=== PATIENT | female | born 1955 | race Caucasian/White ===

== ENCOUNTER → 2017-07-11 07:42 | Outpatient (CLI) | payer OTHER, SELFPAY ==
--- NOTE | 2017-07-11 07:58 | MRI_ITS ---
STUDY: MRI LEFT KNEE REASON FOR EXAM: Female, 62 years old. Pain TECHNIQUE: Standardized fat and water weighted pulse sequences were obtained in all 3 orthogonal planes. COMPARISON: X-ray 09/19/2016 FINDINGS: There is a joint effusion and a small popliteal cyst (image 10, 18/30 axial T2 fat sat). There is thinning of the patellar cartilage (image 10/30 axial T2 fat sat). There is complex tear posterior horn of the medial meniscus which is virtually absent (image 16, 15, 14, 13, 11/42 sagittal proton-density). Much of the body is extruded beyond the joint line (image 17/32 coronal T2 fat sat There is slight loss of articular cartilage of the medial joint (image 17/32 coronal T2 fat sat, 12/42 sagittal proton-density). There is a 1 cm enchondroma at the posterior aspect of the distal femur near the intercondylar roof (image 11/30 axial T2 fat sat). There is mild periligamentous edema at the medial collateral ligament (image 17/32 coronal T2 fat sat). Normal lateral meniscus. Normal hyaline cartilage of the lateral femorotibial compartment. Normal lateral femoral condyle and tibial plateau. Normal proximal tibiofibular articulation. Normal lateral collateral (fibular) ligament. Normal popliteus tendon. Normal biceps femoris tendon. Normal anterior cruciate ligament (ACL). Normal posterior cruciate ligament (PCL). Normal quadriceps tendon. Normal patellar tendon. Normal Hoffa's fat pad. MRI/Lower Ext Joint Only (Routine) IMPRESSION: Complex medial meniscus tear Medial collateral ligament sprain Thinning of the patellar cartilage Joint effusion and small popliteal cyst Electronically Signed: Sinan Mccormack MD at 10:42 EST Tel , Service support ,
== END ==
PROVIDERS: Visit Provider Orthopaedic Surgery
DX: M23.8X2 Other internal derangements of left knee (principal); S83.249A Other tear of medial meniscus, current injury, unspecified knee, initial encounter
CPT/HCPCS: 73721

== ENCOUNTER 2020-06-12 07:24 | Day surgery (SDC) | payer OTHER, SELFPAY ==
[2020-05-21 13:21] VITALS: BMI 37.6
--- NOTE | 2020-06-12 08:04 | HP.PCM_ITS ---
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 Allergies clindamycin Adverse Reaction (Verified 05/21/20 13:21) Diarrhea codeine Adverse Reaction (Verified 05/21/20 13:21) Nausea TAPE Adverse Reaction (Uncoded 05/20/19 14:11) Other Medications pantoprazole 40 mg tablet,delayed release 40 mg PO QAM 06/26/17 [History Confirm ed 05/21/20] escitalopram oxalate 10 mg tablet 10 mg PO DAILY 05/21/20 [History Confirmed 05/21/20] levothyroxine 50 mcg capsule 75 mcg PO cap 05/21/20 [History] oxybutynin chloride 15 mg tablet,extended release 24 hr 15 mg PO DAILY 05/21/20 [History Confirmed 05/21/20] Is last menstrual period known: No Patient : No : No PFSH Surgical History H/O thyroidectomy (Acute) History of partial knee replacement (Acute) Hx of cervical polypectomy (Acute) Hx of laparoscopic gastric banding (Acute) [place] teeth extracted (Acute) S/P thyroid biopsy (Inactive) Family History Mother Breast cancer Diabetes Social History (Updated 05/21/20 @ 14:[address] Angela Duran MD) Smoking Status: Never smoker HPI consult,2nd opinion for possible D&C: Details: JAY MCKEON is a 65 year old who presents for second opinion for PMB. Reports spot of blood in August. Was told that it looked like she had a lace ration at that tie and bleeding was attributed to this. Had pap which she was told was normal. Reports was sent for ultrasound due to bloating. Had an ultrasound and was told that she had a polyp. Prior OB recommended D&C, but she initially wanted to delay due to issues with insurance. Has decided that she is now agreeable to D&C. ROS Const Constitutional: Reports system reviewed and no additional complaints, except as docu Eyes Eyes: Reports system reviewed and no additional complaints, except as docu ENT ENT: Reports system reviewed and no additional complaints, except as docu Cardio Card: Reports system reviewed and no additional complaints, except as docu Resp Resp: Reports system reviewed and no additional complaints, except as docu GI GI: Reports system reviewed and no additional complaints, except as docu, bloating and cramping : Reports system reviewed and no additional complaints, except as docu; denies genital itching, light periods, heavy periods, pelvic pain, vaginal discharge, vaginal dryness, vaginal odor or vaginal itching Musc Musc: Reports system reviewed and no additional complaints, except as docu Skin Skin/Breast: Reports system reviewed and no additional complaints, except as docu Neuro Neuro: Reports system reviewed and no additional complaints, except as docu Psych Psych: Reports system reviewed and no additional complaints, except as docu Endo Endo: Reports system reviewed and no additional complaints, except as docu Exam Const General: cooperative, healthy appearing, comfortable, well developed, well groomed Orientation: alert, awake, oriented x3 Neck Neck: normal visual inspection, full ROM Resp Effort & Inspection: normal respiratory effort, able to speak in complete sentences, symmetric chest movement Cardio Rate: regular rate Skin General: no rashes or lesions noted, elasticity normal, turgor normal Lesions: no lesions Rashes: no rashes Neuro General: alert, awake, oriented x3 Cranial Nerves: CN's II-XI intact bilaterally, PERRL, EOM intact bilaterally Cognition: normal cognition Speech: speech normal Gait: normal gait Extrem General: normal to inspection, full ROM, no pedal edema Psych Appearance: grossly normal Mental Status: mental status grossly normal Mood: congruent mood Affect: normal affect Speech and Movement: speech and movement normal Attitude: cooperative Thought Process: normal Thought Content: normal Assessment & Plan 1. Endometrial polyp N84.0 Plan Initially presented with one episode of PMB Had US that showed 2 small areas consistent with polyps Discussed with patient that polyps are typically benign, but there is is a navarrete ce of cancerous or precancerous cells in polyp therefore I would recommend a D&C. The nature of the procedure was described to the patient. The risks, benefits, indications, and alternatives to the procedure were discussed with the patient including bleeding, infection, and damage to surrounding structures. Discussed that risks are very low with D&C. Discussed the possibility of perforation and t hat this could require laparotomy or laparoscopy. Discussed the possibility of damage to surrounding structures including uterus, tubes, ovaries, bowel, or bladder. Understands the risk of hospitalization or reoperation. Voices understanding and agrees to proceed. Plan to proceed with hysteroscopy, D&C, polypectomy, possible symphion. UPDATE- I have seen the patient and performed any clinically relevant updates to the history and physical exam. Angela Duran MD
[2020-06-12 08:39] LABS: Hematocrit 46.2 % (37-47); Hemoglobin 15.2 g/dL (12.0-15.0); Mean Corp Hgb Conc 32.9 g/dL (32-36); Mean Corpuscular Hgb 32.1 pg (27.0-32.0); Mean Corpuscular Volume 97.7 fL (81-99); Platelet Count 202 K/mm3 (150-450); RBC Distribution Width CV 12.2 % (11.6-14.6); RBC Distribution Width SD 44.1 fl (35.1-43.9); Red Blood Count 4.73 M/mm3 (4.2-5.4); White Blood Count 4.8 K/mm3 (4.4-11.0)
[2020-06-12 08:48] VITALS: BP 119/65; PULSE 72; RESP 16; TEMP 36.6; O2SAT 100; BMI 37.8
--- NOTE | 2020-06-12 09:12 | PCM.DC.D&C ---
Discharge Diet: No Restrictions Discharge Activity: Return to Normal Activity, May Shower, May Take a Tub Bath - in 2 weeks. Allergies/Adverse Reactions: Allergies clindamycin Adverse Reaction (Verified 06/12/20 08:54) Diarrhea codeine Adverse Reaction (Verified 06/12/20 08:54) Nausea TAPE Adverse Reaction (Uncoded 06/12/20 08:54) Other Medications to take at Discharge pantoprazole 40 mg tablet,delayed release 40 mg PO QAM 06/26/17 escitalopram oxalate 10 mg tablet 10 mg PO DAILY 05/21/20 levothyroxine 50 mcg capsule 75 mcg PO DAILY cap 05/21/20 oxybutynin chloride 15 mg tablet,extended release 24 hr 15 mg PO DAILY PRN 05/21/20 L.acidoph,Paracasei, B.lactis [Probiotic] 1 ea PO PRN PRN 06/05/20 Magwell 1 tab PO DAILY 06/05/20 Multivitamin with Minerals [Multiple Vitamin] 1 ea PO DAILY 06/05/20 Orders to be completed after discharge: Type & Screen - PAT ONLY Time Frame: 06/12/20, Facility: [facility], Location: Laboratory Primary Care Physician: Jennifer Jaquez MD [Primary Care Provider] - Test Results: Test results from this visit will be discussed in further detail at your follow-up appointment, if applicable.
--- NOTE | 2020-06-12 09:20 | EMB_PTH ---
PATIENT: JAY MCKEON [place] [facility] [place][id number] AGE/SX: 65/F ROOM: RE06/12/[address]: Dr. Angela Duran MD : 1955 BED: DIS: 06/12/2020 SPEC #: [id number] RECD: 06/12/20 10:29 STATUS: LISA WALLACE #: [id number] DIONISIO: 06/12/20 09:[address]: Angela Duran DEPT: SURGICAL PATHOLOGY RECD BY: Allyson Aguilera ENTERED: 06/12/20 11:27 SP TYPE: ENDOM BX/C OTHR DR: Dr. Jennifer Jaquez MD Tissues: Endometrium, NOS Procedures: Surgery Specimen Level IV HEADER OPERATION: Hysteroscopy, D & C, polypectomy PRE-OP DIAGNOSIS: Postmenopausal bleeding TISSUE SUBMITTED: Endometrial curettings and polyp MICROSCOPIC DIAGNOSIS Endometrial polyp and curettings, biopsy: Inactive polypoid endometrium with focal cystic change. Rare fragments of detached benign squamous mucosa. AM:shiv 06/13/2020 MICROSCOPIC DESCRIPTION Slides are reviewed. GROSS DESCRIPTION Received in fixative is one container labeled with the patient's name and designated endometrial curettings and polyp. The specimen consists of multiple irregular fragments of quinteros soft tissue that in aggregate measure 2.5 x 1.5 x 0.2 cm. The specimen is totally submitted in one cassette. / SJ:shiv 06/12/20 TC:5 CPT: 40986
[2020-06-12] MEDS: Lidocaine 1% (20 ml mdv) 20 ML Vial (09:44)
--- NOTE | 2020-06-12 10:11 | OP.PCM_ITS ---
Problem List (1) Postmenopausal bleeding Status: Acute Report of Operation Date of Procedure: 06/12/20 Pre-Operative Diagnosis: Postmenopausal bleeding, suspected endometrial polyp Post-Operative Diagnosis: Same Surgery/Procedure Performed:: Hysteroscopy, D&C, symphion polypectomy Description of Surgical Findings:: 2 endometrial polyps noted. Small polyp at the right tubal ostia. Larger polyp at uterine fundus with areas of calcifications. machine operator transplanter: None Type of Anesthesia:: Local MAC Specimen's removed: Endometrial curettings and polyp Estimated Blood Loss (mL): 10 cc Fluids Replaced: 500 cc Description of Procedure: The patient was taken to the operating room where general anesthesia was obtained without difficulty. She was prepped and draped in the dorsolithotomy position with yellowfin stirrups. Weighted speculum was placed in the posterior aspect of the vagina and the anterior lip of the cervix was grasped with a single-tooth tenaculum. The cervix was sequentially dilated to accommodate the hysteroscope. The hysteroscope was then introduced into the uterine cavity and the above findings were noted. The symphion device was then introduced through the hysteroscope and activated to fully resect the polyps. Hemostasis was noted. The hysteroscope was removed and a sharp curettage was then performed. The procedure was deemed complete. All instruments were then removed from the vagina. The patient was again from anesthesia and taken to the recovery room in stable condition. - Complications None apparent - Admit VTE Documentation VTE Present on Admission: No VTE Mechan Device Prophylaxis: SCD's VTE Pharm Prophylaxis ordered?: No Multi Select Codes - Urinary/Genital Urinary/Genital CPT Codes: 56334 Hysteroscopy,EMC, Polypectomy
[2020-06-12 10:15] VITALS: BP 114/72; BP 119/65; PULSE 83; RESP 16; TEMP 36.2; O2SAT 94
[2020-06-12 10:30] VITALS: BP 112/70; BP 119/65; PULSE 66; RESP 16; O2SAT 96
[2020-06-12 10:45] VITALS: BP 117/67; BP 119/65; PULSE 61; RESP 16; O2SAT 97
[2020-06-12 10:56] VITALS: BP 114/72; BP 119/65; PULSE 61; RESP 16; TEMP 36.6; O2SAT 95
[2020-06-12 11:27] VITALS: BP 119/65
== END 2020-06-12 11:32 | disposition home or self-care (01) ==
LOC: SDC 07:25 → AC 07:25
PROVIDERS: PCP Family Medicine; Referring Provider Obstetrics & Gynecology; Visit Provider Obstetrics & Gynecology
PROC: 0UB98ZZ Excision of Uterus, Via Natural or Artificial Opening Endoscopic (ICD-10-PCS; CPT 58558; principal; 2020-06-12 09:05)
DX: N84.0 Polyp of corpus uteri (principal); N95.0 Postmenopausal bleeding; K21.9 Gastro-esophageal reflux disease without esophagitis; F41.9 Anxiety disorder, unspecified; E06.9 Thyroiditis, unspecified; Z79.899 Other long term (current) drug therapy; Z20.822 Contact with and (suspected) exposure to COVID-19
CPT/HCPCS: 00952; 58558; 85027; 86850; 86900; 86901; 87426; 88305; C9803; J7120; J2405

== ENCOUNTER → 2020-07-11 08:10 | Outpatient (CLI) | payer OTHER, SELFPAY ==
[2020-06-25 11:00] VITALS: BMI 37.8
--- NOTE | 2020-07-11 08:12 | BI_ITS ---
MAMMOGRAPHY - BILATERAL SCREENING REASON FOR EXAM: Female, 65 years old. Routine annual screening examination. PERTINENT HISTORY: Sister with breast cancer. Aunts with breast cancer. TECHNIQUE: Digital bilateral breast shea (3D mammographic acquisition) in the CC and MLO projections. 2-D mediolateral oblique (MLO) and craniocaudad (CC) views of both breasts were obtained. CAD: Full Field Digital Mammography with Computer Added Detection was performed. COMPARISON: Comparison is made with prior outside examination dated 12/03/2017. FINDINGS: Breast Composition: There are scattered areas of fibroglandular density. There are no dominant masses or suspicious calcifications. Stable small benign appearing bilateral axillary lymph nodes. No other significant abnormalities are identified. There has been no significant change since the prior study. BI/SCRN MAMM (CAD)W/SHEA BILAT IMPRESSION: Stable bilateral screening mammogram. Yearly follow-up mammogram recommended. (A) ASSESSMENT CATEGORY: BIRADS Category 2: Benign. A letter regarding these results will be sent to the patient by the facility within 30 days. Approximately 10% of breast cancers are not detected by mammography. A normal mammogram should not delay biopsy of a clinically suspicious abnormality. [id number] Electronically Signed: Levy Barnes MD at 10:31 EST , Service support ,
== END ==
PROVIDERS: PCP Family Medicine; Referring Provider Obstetrics & Gynecology; Visit Provider Obstetrics & Gynecology
DX: Z12.31 Encounter for screening mammogram for malignant neoplasm of breast (principal)
CPT/HCPCS: 77063; 77067

== ENCOUNTER 2020-07-24 11:49 | Outpatient (RCR) | payer OTHER, SELFPAY ==
[2020-06-25 11:00] VITALS: BMI 37.8
[2020-07-24] MEDS: COVID-19 VACC, MRNA(PFIZER)/PF 30 MCG/0.3 ML SYRINGE IM (09:03)
[2020-08-14] MEDS: COVID-19 VACC, MRNA(PFIZER)/PF 30 MCG/0.3 ML SYRINGE IM (09:08)
== END 2020-10-23 23:59 ==
LOC: IMMUN 11:49
PROVIDERS: PCP Family Medicine; Referring Provider Family Medicine; Visit Provider Family Medicine
DX: Z23 Encounter for immunization (principal)
CPT/HCPCS: 0001A; 0002A; 91300

== ENCOUNTER 2020-12-17 07:57 | Day surgery (SDC) | payer MEDICARE, BC, SELFPAY ==
[2020-08-02 09:00] VITALS: BMI 37.7
[2020-12-17] VITALS (7 sets, daily range): BP systolic 105–126; BP diastolic 65–89; PULSE 72–85; RESP 16; TEMP 35.9–36.9; O2SAT 94–99; BMI 36.6
[2020-12-17] MEDS: Lactated Ringers 1,000 ML 100 ML IV (08:31)
--- NOTE | 2020-12-17 08:36 | H&P.OPEN ---
HPI - General General Date of Admission: 06/12/20 HPI Narrative JAY MCKEON, is a 65 F who presents for screening colonoscopy. Patient's last colonoscopy was in 2007 at [facility] just had internal hemorrhoids, patient denies any family history of colon cancer. Patient did do a Cologuard test 4 to 5 years ago which was negative per the patient. Patient still states he been having normal bowel movements daily was having diarrhea for a little bit until she did the intermittent fasting. Denies any chronic abdominal pain nausea/vomiting/reflux. [facility] Medical History (Updated 12/17/20 @ 08:[address] Berta Amor MD) Acute bronchitis Alcohol use Anxiety Bite from insect Easy bruising GERD (gastroesophageal reflux disease) History of hyperlipidemia History of stress test Leg cramps Non-smoker Postmenopausal bleeding Restless legs Wears glasses Home Medications pantoprazole 40 mg tablet,delayed release 40 mg PO DAILY PRN PRN 06/26/17 [History Last Taken 06/12/20 05:00] escitalopram oxalate 10 mg tablet 10 mg PO DAILY 05/21/20 [History Last Taken Unknown] levothyroxine 50 mcg capsule 75 mcg PO DAILY cap 05/21/20 [History Last Taken Unknown] oxybutynin chloride 15 mg tablet,extended release 24 hr 15 mg PO DAILY PRN 05/21/20 [History Last Taken Unknown] L.acidoph, paracasei,B. lactis 1 ea PO PRN PRN 06/05/20 [History Last Taken Unknown] Magwell 1 tab PO DAILY 06/05/20 [History Last Taken Unknown] multivitamin with minerals 1 ea PO DAILY 06/05/20 [History Last Taken Unknown] Allergy/AdvReac Type Severity Reaction Status Date / Time clindamycin Allergy Diarrhea Verified 12/17/20 08:24 codeine Allergy Other Verified 12/17/20 08:24 bandaid Allergy Other Uncoded 12/17/20 08:24 Family History Mother Breast cancer Diabetes Surgical History (Updated 12/12/20 @ 10:36 by Jodie Barbosa) H/O dilation and curettage (~06/12/20) H/O thyroidectomy History of partial knee replacement Hx of cervical polypectomy Hx of laparoscopic gastric banding S/P thyroid biopsy [place] teeth extracted Social History (Updated 08/02/20 @ 09:[address] Berta Amor MD) Smoking Status: Never smoker alcohol intake: current details: occasionally substance use type: does not use caffeine: Yes what type of physical activity do you participate in: none seatbelt use: always do you feel safe at home: Yes additional social history: [employer] Past Medical/Surgical History Planned Operation Planned Operative Procedure/s: colonoscopy S.O.S: No Previous Hospitalizations/Surgeries HX Hospitalizations: No HX of Surgeries: left tkr d&c's thyroid lobectomy lap band cscope egd Any Problems With Anesthesia: Yes (very difficult time waking after knee replacement) You/Your Family Experience Fever (Hyperthermia) With Anes: No Cholinesterase deficiency: No Cardiovascular Hx Chest Pain within Last 2 months: No Hx of Irregular Heartbeat and/or Afib: No Hx Heart Attack: No Hx Congestive Heart Failure: No Hx Rheumatic Fever: No Hx Hypertension: No Hx Internal Defibrillator: No Hx Pacemaker: No Hx Cardiac Catheterization: No Hx Cardiac Surgery/Stents/Etc.: No Hx Stress Test: Yes (over 5 yrs ago) Hx Pain in Legs when Walking/Leg Cramps: Yes (knee pain) Respiratory Chronic Cough: No HX of Shortness of Breath: Yes (slightly sob with 2 flights of stairs) Hoarseness: No Hx Chronic Obstructive Pulmonary Disease (COPD): No Hx Asthma: No Hx Emphysema: No Hx Sleep Apnea: No Hx Respiratory Tract Infection/Cold (presently): No Do You Snore Loudly (louder than talking or can be heard): Yes Do You Often Feel Tired/ Fatigued/ Sleepy Dring Daytime?: No Has Anyone Observed You Stop Breathing During Sleep?: No Result (for STOP score): Negative Hx Smoking: No Smoking Status: Never smoker Gastrointestinal Hx Gastroesophageal Reflux: Yes Controlled With Meds: Yes Hx Gastrointestinal Disorders: No Hx Gastrointestinal Bleed: No Hx Ulcer: No Hx Hiatal Hernia: Yes (repaired with lap band sugery) Difficulty Chewing/Swallowing: No Special diet followed at home: No Hx Unplanned Weight Loss of 20#: No HX Unplanned Weight Gain of 20#: No Neurological Hx Seizures: No HX Syncope/Blackout Spells/Unconsciousness: No Hx Transient Ischemic Attacks (TIA): No Hx Multiple Sclerosis: No Hx Parkinson's Disease: No Hx Head/Neck Injury: No Hx Headaches: No Hx Back Injury/Pain: No Recent Onset of Speech Difficulty: No Restless Legs: Yes (in the past) Does patient have nerve stimulator: No Blood Disorder Hx Leukemia: No Bleeding Tendencies: Yes (bruises easily) Hx Deep Vein Thrombosis: No Hx High Cholesterol: No Blood Transmitted Disease: No Hx Hepatitis: No Hx Cirrhosis: No Hx Anemia: No Hx Blood Disorders: No Reproduction : No Is Patient Lactating: No Hx Hysterectomy: No Hx Tubal Ligation: No Are You Post Menopause: Yes Genitourinary Hx Renal Disease: No (oab) Musculoskeletal Hx Arthritis: Yes Hx Rheumatoid Arthritis: No Hx Gout: No Recent Onset of an Orthopedic Problem: No Endocrine Hx Diabetes: No Thyroid Disease: Yes (on med) Hx Steroid Therapy: No Psycho/Social Hx Substance Use: No Hx Alcohol Use: No Hx Anxiety: Yes (on med) Hx Depression: No Mental Illness: No Hx Dementia: No Miscellaneous Hx Cancer: Yes (thyroid/lobectomy) Recent Exposure to Contagious Disease: Yes Hx of C-Diff: No Any Loose Teeth: No Allergies clindamycin Allergy (Verified 12/17/20 08:24) Diarrhea codeine Allergy (Verified 12/17/20 08:24) Other nausea and fainting bandaid Allergy (Uncoded 12/17/20 08:24) Other blisters From the PAT History Number of Risk Factors: 5 Vital Signs Vital Signs Vital Signs: 12/17/20 08:25 Temperature 98.4 F Temperature Source Temporal Pulse Rate 85 Respiratory Rate 16 Respiratory Pattern Normal Blood Pressure 113/77 Blood Pressure Mean 89 Blood Pressure Source Monitor Blood Pressure Position Semi-Fowlers Blood Pressure Location Right Arm Pulse Ox 99 Oxygen Delivery Method Room Air Weight Weight: 213 lb 6.519 oz Body Mass Index (BMI) 36.6 Physical Exam Const alert, oriented x3 and no apparent distress HEENT normocephalic and head/scalp atraumatic Resp normal respiratory effort Cardio regular rate GI soft to palpation and non-tender; Negative for non-distended Palpation: Negative for guarding Extremity no clubbing, cyanosis or edema Neuro CN's II-XII intact bilaterally Psych mental status grossly normal Assessment & Plan Assessment/Plan (1) Screening for colon cancer: Procedure Criteria Type of Procedure Procedure Type: Elective Elective Risks - COVID COVID Risk Discussion: The surgeon/proceduralist and patient have discussed in detail the risk of exposure to and/or potential harm posed by the COVID-19 virus with having a surgery/procedure at this time versus the risk of delaying the surgery/procedure. It is not possible to know either the risk of delaying the surgery or procedure or chance of getting an infection with perfect accuracy, but a joint decision was made between the patient and the surgeon/proceduralist to proceed at this time with the scheduled surgery/procedure as indicated on the consent form. Surgery Risks - Colonoscopy Risks Include but are not Limited To: Risks include but are not limited to: Bleeding, perforation requiring further surgery, inability to complete colonoscopy requiring barium enema.
--- NOTE | 2020-12-18 13:08 | OP.COLON_ITS ---
Patient Name: Anitha Sorensen Procedure Date: 12/17/2020 8:44 AM Date of : 1955 Age: 65 Procedure: Colonoscopy Indications: Screening for colorectal malignant neoplasm Providers: Berta Amor MD Medicines: Monitored Anesthesia Care Patient Profile: This is a 65 year old female. Last Colonoscopy: 2007. cologuard 4-5 years ago--negative per pt Complications: No immediate complications. Procedure: Pre-Anesthesia Assessment: - Prior to the procedure, a History and Physical was performed, and patient medications and allergies were reviewed. The patient's tolerance of previous anesthesia was also reviewed. The risks and benefits of the procedure and the sedation options and risks were discussed with the patient. All questions were answered, and informed consent was obtained. Prior Anticoagulants: The patient has taken no previous anticoagulant or antiplatelet agents. ASA Grade Assessment: Per anesthesia. After reviewing the risks and benefits, the patient was deemed in satisfactory condition to undergo the procedure. After I obtained informed consent, the scope was passed under direct vision. Throughout the procedure, the patient's blood pressure, pulse, and oxygen saturations were monitored continuously. The pediatric colonoscope was introduced through the anus and advanced to the cecum, identified by the appendiceal orifice, ileocecal valve and palpation. The colonoscopy was performed without difficulty. The patient tolerated the procedure well. The quality of the bowel preparation was good. Scope In: 8:55:44 AM Scope Withdrawal Time 0 hours 6 minutes 45 seconds Scope Out: 9:11:01 AM Total Procedure Duration Time 0 hours 15 minutes 17 seconds Findings: The perianal and digital rectal examinations were normal. The entire examined colon appeared normal on direct and retroflexion views. Impression: - The entire examined colon is normal on direct and retroflexion views. - No specimens collected. Recommendation: - Discharge patient to home. - Resume previous diet. - Continue present medications. - Repeat colonoscopy in 10 years for screening purposes. Procedure Code(s): --- Professional --- G0121, PT, Colorectal cancer screening; colonoscopy on individual not meeting criteria for high risk CPT copyright 2017 [employer]. All rights reserved. The codes documented in this report are preliminary and upon investigator claims review may be revised to meet current compliance requirements. MD Berta Bautista MD 12/17/2020 9:17:04 AM This report has been signed electronically. Number of Addenda: 0 Note Initiated On: 12/17/2020 8:44 AM
--- NOTE | 2020-12-18 13:08 | OP.CCLET_ITS ---
12/18/2020 Jennifer Jaquez Md Re : Colonoscopy procedure for Anitha Sorensen Dear Gisele This procedure was performed on Thursday, December 17, 2020. My impressions and recommendations are as follows: Impressions : - The entire examined colon is normal on direct and retroflexion views. - No specimens collected. Recommendations : - Discharge patient to home. - Resume previous diet. - Continue present medications. - Repeat colonoscopy in 10 years for screening purposes. My findings are described in the full procedure note, which is enclosed. If I can be of further assistance, please feel free to contact me at Doctor phone number(s): , Work: . Sincerely, MD Berta Bautista MD 12/17/2020 9:17:04 AM This report has been signed electronically.
== END 2020-12-17 10:12 | disposition home or self-care (01) ==
LOC: EN 08:04 → AC 08:18
PROVIDERS: PCP Family Medicine; Referring Provider Family Medicine; Visit Provider Surgery
PROC: 0DJD8ZZ Inspection of Lower Intestinal Tract, Via Natural or Artificial Opening Endoscopic (ICD-10-PCS; CPT 45378; principal; 2020-12-17 08:40)
DX: Z12.11 Encounter for screening for malignant neoplasm of colon (principal); K21.9 Gastro-esophageal reflux disease without esophagitis; F41.9 Anxiety disorder, unspecified; E78.5 Hyperlipidemia, unspecified; Z79.899 Other long term (current) drug therapy
CPT/HCPCS: G0121; J7120; J2405

== ENCOUNTER → 2021-03-21 10:01 | Outpatient (CLI) | payer MEDICARE, BC, SELFPAY ==
[2021-03-21 11:13] LABS: NATERA MAILED SPECIMEN
[2021-03-26 16:25] LABS: HPV APTIMA, High Risk Negative (Negative)
== END ==
PROVIDERS: PCP Family Medicine; Referring Provider Obstetrics & Gynecology; Visit Provider Obstetrics & Gynecology
DX: Z01.419 Encounter for gynecological examination (general) (routine) without abnormal findings (principal)
CPT/HCPCS: 36415; 87624; 88175; G0145

== ENCOUNTER 2021-07-12 09:29 | Outpatient (CLI) | payer MEDICARE, BC, SELFPAY ==
--- NOTE | 2021-07-12 09:58 | BI_ITS ---
MAMMOGRAPHY - BILATERAL SCREENING REASON FOR EXAM: Female, 66 years old. Routine annual screening examination. PERTINENT HISTORY: Sister with breast cancer. Aunts with breast cancer. TECHNIQUE: Digital bilateral breast shea (3D mammographic acquisition) in the CC and MLO projections. 2-D mediolateral oblique (MLO) and craniocaudad (CC) views of both breasts were obtained. CAD: Full Field Digital Mammography with Computer Added Detection was performed. COMPARISON: Comparison is made with a prior study dated 07/11/2020. FINDINGS: Breast Composition: There are scattered areas of fibroglandular density. There are no dominant masses or suspicious calcifications. Stable benign-appearing bilateral axillary lymph nodes. No other significant abnormalities are identified. There has been no significant change since the prior study. BI/SCRN MAMM (CAD)W/SHEA BILAT IMPRESSION: Stable bilateral screening mammogram. Yearly follow-up mammogram recommended. (A) ASSESSMENT CATEGORY: BIRADS Category 2: Benign. A letter regarding these results will be sent to the patient by the facility within 30 days. Approximately 10% of breast cancers are not detected by mammography. A normal mammogram should not delay biopsy of a clinically suspicious abnormality. [id number] Electronically Signed: Levy Barnes MD at 10:57 EST ,
== END 2021-07-12 23:59 | disposition home or self-care (01) ==
LOC: OPBI 09:58
PROVIDERS: PCP Family Medicine; Referring Provider Obstetrics & Gynecology; Visit Provider Obstetrics & Gynecology
DX: Z12.31 Encounter for screening mammogram for malignant neoplasm of breast (principal)
CPT/HCPCS: 77063; 77067

== ENCOUNTER → 2022-04-14 | Outpatient (CLI) | payer MEDICARE, BC, SELFPAY ==
--- NOTE | 2022-04-14 18:27 | US_ITS ---
INDICATION: presurgery EXAMINATION: US Transvaginal Non-OB TECHNIQUE: Transvaginal (for optimal evaluation of the adnexa) pelvic ultrasound was performed. Grayscale, spectral waveform, and color flow Doppler evaluation of the adnexa. COMPARISON: None. FINDINGS: UTERUS: Retroverted. The uterus measures 6.3 x 3.6 x 4 cm. There is no uterine mass. The endometrial stripe measures 1 mm in AP diameter which is within normal limits. Slightly irregular and heterogenous appearance of the cervix. RIGHT OVARY: Measures 1.9 x 1.7 x 1.2 cm. Non-enlarged, normal echogenicity. There is normal arterial inflow and venous outflow present in the right ovary. There is a 1.3 cm well-circumscribed anechoic cyst in the right ovary. LEFT OVARY: Measures 1.5 x 1.1 x 0.7 cm. Non-enlarged, normal echogenicity. There is normal arterial inflow and venous outflow present in the left ovary. FREE FLUID: None. OTHER: Asymmetric bladder wall thickening. US/Transvaginal Non- IMPRESSION: Slightly irregular and heterogenous appearance of the cervix. Recommend comparison to prior outside imaging as well as possible tissue sampling. Asymmetric bladder wall thickening. Correlate with urinalysis for possible cystitis. A CT cystogram may be beneficial if clinically warranted. Electronically Signed: Ariel Villarreal MD at 20:52 EST ,
== END | disposition home or self-care (01) ==
LOC: US 18:27
PROVIDERS: PCP Family Medicine; Visit Provider Obstetrics & Gynecology
DX: Z01.818 Encounter for other preprocedural examination (principal)
CPT/HCPCS: 76830

== ENCOUNTER 2022-04-15 07:25 | Day surgery (SDC) | payer MEDICARE, BC, SELFPAY ==
--- NOTE | 2022-04-09 15:59 | EKG12_ITS ---
Test Reason : PRE-OP Blood Pressure : / mmHG Vent. Rate : 081 BPM Atrial Rate : 081 BPM P-R Int : 192 ms QRS Dur : 086 ms QT Int : 382 ms P-R-T Axes : 022 015 005 degrees QTc Int : 443 ms Normal sinus rhythm Normal ECG Confirmed by ZACH SAAVEDRA, CHEO ([id number]), news editor FLAKO OQUENDO ([id number]) on 04/11/2022 11:08:34 AM Referred By: Sandra Doyle Confirmed By:CHEO SERRANO MD
--- NOTE | 2022-04-14 14:29 | PCM.HP.BLA ---
History and Physical Intake Vital Signs ? 03/21/2109:06 04/03/2210:06 04/03/2210:07 Height 5 ft 3 in 5 ft 4 in 5 ft 3 in Weight: ? 224 lb ? BMI ? 38.4 ? BP ? 120/74 ? Intake Visit Reasons:?TVHBSO Chief Complaint: TVHBSO Claim Clerk Required: No Is patient in pain?: No Allergies clindamycin Allergy (Verified 03/21/21 09:07) Diarrheacodeine Allergy (Verified 03/21/21 09:07) Otherbandaid Allergy (Uncoded 03/21/21 09:07) Other Medications pantoprazole 40 mg tablet,delayed release (Protonix) 40 mg PO DAILY PRN PRN Heartburn 06/26/17 [History Confirmed 04/03/22] escitalopram oxalate 10 mg tablet (Lexapro) 10 mg PO DAILY 05/21/20 [History Confirmed 04/03/22] levothyroxine 50 mcg capsule 75 mcg PO DAILY 05/21/20 [History Confirmed 04/03/22] multivitamin with minerals 1 ea PO DAILY 06/05/20 [History Confirmed 04/03/22] dicyclomine 20 mg tablet 20 mg PO BID #60 tabs 02/15/21 [Rx Confirmed 04/03/22] Is last menstrual period known: No Post menopausal: Yes Patient : No : No PFSH Medical History?(Updated 04/03/22 @ 10:[address] Sandra Doyle MD) Acute bronchitis Alcohol use Anxiety Bite from insect Easy bruising GERD (gastroesophageal reflux disease) History of hyperlipidemia History of stress test Leg cramps Non-smoker Postmenopausal bleeding Restless legs Wears glasses Surgical History? H/O dilation and curettage (~06/12/20) H/O thyroidectomy History of partial knee replacement Hx of cervical polypectomy Hx of laparoscopic gastric banding S/P thyroid biopsy [place] teeth extracted Family History? Mother DiabetesSister Breast cancer DiabetesAunt Breast cancer Colon cancerUnknown?? Breast cancerAunt Breast cancerUnknown Breast cancerGrandmother Cancer ?? ? unknown origin Social History? Smoking Status:? Never smoker alcohol intake:? current details:? occasionally substance use type:? does not use caffeine:? Yes what type of physical activity do you participate in:? none seatbelt use:? always do you feel safe at home:? Yes additional social history:? - [facility] TVHBSO Details: JAY MCKEON is a 67 year old who presents for preop visit for hysterectomy due to recurrent endometrial polyps and intermittent postmenopausal bleeding, recurrent. she had originally planned on a hysterecotmy at the beginning of the year but has been delaying it due to covid. she is now ready to proceed. she was started on metformin recently for prediabetes.?she had a pelvic ultrasound showing heterogenous appearance to the cervix and has a history of recurrent polyps, 1 mm lining of uterus. Female Reproductive History Menopausal Symptoms: No hot flashes, No night sweats, No difficulty concentrating and No change in libido ROS Const Constitutional: Reports as per HPI; Denies fatigue, increased appetite, poor appetite, night sweats, weight gain or weight loss Cardio Card: Denies chest pain Resp Resp: Denies cough or dyspnea GI GI: Reports as per HPI; Denies abdominal pain, bloating, constipation, nausea or vomiting : Reports as per HPI, urinary frequency, urinary incontinence, urinary urgency and other; Denies difficulty voiding, dysuria, hematuria, hot flashes, nipple discharge, pelvic pain, prolapse symptoms, vaginal discharge, vaginal dryness, vaginal odor or vaginal pruritus Skin Skin/Breast: Denies changing lesions, breast mass, breast pain, breast skin changes or nipple discharge Psych Psych: Denies anxiety, change in libido, depression or difficulty concentrating Exam Const General: cooperative, healthy appearing, comfortable, no acute distress, well developed and well groomed [facility] Head: normal to inspection and normocephalic Ears: hearing grossly normal bilaterally and external ears normal Nose: external nose normal Face and sinus: normal facial exam Neck Neck: normal visual inspection, full ROM and no lymphadenopathy Thyroid: thyroid normal Chest Chest palpation & inspection: normal inspection of the chest Breast inspection: normal inspection of the breasts and normal inspection of the axillae Breast palpation: normal palpation of the breasts, normal palpation of the axillae and no axillary lymphadenopathy Resp Effort & Inspection: normal respiratory effort GI Inspection: normal to inspection and non-distended Palpation: soft, no hepatosplenomegaly and no guarding Skin General: no rashes or lesions noted Neuro General: patient alert, moves all extremities and no focal motor deficits Extrem General: normal to inspection and no pedal edema Psych Appearance: grossly normal Mental Status: mental status grossly normal Affect: normal affect Speech and Movement: speech and movement normal Attitude: cooperative Coding Level of Care Code No Charge Diagnoses Endometrial polyp? N84.0 Prediabetes? R73.03 Assessment and Plan Assessment and Plan (1) Endometrial polyp: ?Status:?Acute ?Comment: recurrent x 3, discussed options for management and plan for TVHBSO (2) Prediabetes: ?Status:?Acute ?Comment: recently started on metformin Plan After discussing the patient's diagnosis and treatment plan options, patient wishes to proceed with surgical management.? I have discussed with the patient the risks, benefits, and alternatives of the procedure which include but are not limited to risks of anesthesia, bleeding, infection, possible damage to bowel, bladder, or surrounding vasculature which could lead to additional surgery to evaluate any complications.? Patient agrees to procedure and wishes to proceed.? ACOG/uptodate references given for additional information regarding procedure. UPDATE- I have seen the patient and performed any clinically relevant updates to the history and physical exam. Sandra Doyle MD?
[2022-04-15] VITALS (18 sets, daily range): BP systolic 106–134; BP diastolic 54–83; PULSE 54–85; RESP 12–20; TEMP 36.4–37.7; O2SAT 86–99; BMI 39.9
[2022-04-15] MEDS: Scopolamine 1mg/72hr Patch 1 PATCH TD (08:31)
[2022-04-15 08:32] LABS: Absolute Lymphocyte Count 1.87 X10^3/uL (0.83-4.51); Absolute Neutrophil Count 2.6 X10^3/uL (2.0-7.7); Basophil# 0.03 X10^3/uL; Basophil% 0.6 % (0-1); Eosinophil# 0.19 X10^3/uL; Eosinophils% 3.6 % (0-5); Hemoglobin 14.2 g/dL (12.0-15.0); Lymphocyte # 1.87 X10^3/ul (0.83-4.51); Lymphocyte % 35.7 % (19-41); Mean Corp Hgb Conc 32.3 g/dL (32-36); Mean Corpuscular Hgb 31.9 pg (27.0-32.0); Mean Corpuscular Volume 98.9 fL (81-99); Mean Platelet Vol. 11.5 fl (6.2-12.0); Monocyte# 0.59 X10^3/uL; Monocyte% 11.3 % (0-10); NRBC Flagged by Analyzer 0 % (0-5); Neutrophil # 2.55 X10^3/uL (2.7-7.7); Neutrophil % 48.6 % (47-70); Platelet Count 217 K/mm3 (150-450); RBC Distribution Width CV 12.8 % (11.6-14.6); RBC Distribution Width SD 46.1 fl (35.1-43.9); Red Blood Count 4.45 M/mm3 (4.2-5.4); White Blood Count 5.2 K/mm3 (4.4-11.0)
[2022-04-15] MEDS: Celecoxib 200 MG Capsule 400 MG PO (08:32)
[2022-04-15] MEDS: Acetaminophen 500 MG Tablet 1000 MG PO (08:32)
[2022-04-15] MEDS: Gabapentin 600 MG Tablet PO (08:33)
[2022-04-15] MEDS: Lactated Ringers 1,000 ML 40 ML IV (08:33)
[2022-04-15] MEDS: dexAMETHasone 10 MG/ML Vial 8 MG IV (08:39)
[2022-04-15 08:41] LABS: International Normalized Ratio 0.9
[2022-04-15 08:42] LABS: Partial Thromboplast Time 26.4 Seconds (24.1-36.2)
[2022-04-15] MEDS: Enoxaparin 40 MG/0.4 ML Syringe SC (08:43)
[2022-04-15 09:08] LABS: AST(SGOT) 19 U/L (15-37); Alanine Aminotransfer ALT/SGPT 30 U/L (13-56); Albumin, Serum 3.6 g/dL (3.2-5.0); Alkaline Phosphatase 87 U/L (45-117); Anion Gap 9 (5-15); BUN 13 mg/dL (7-18); BUN/Creat Ratio 15.5 RATIO (10-20); Calcium,Total 8.8 mg/dL (8.5-10.1); Chloride 105 mmol/L (98-107); Creatinine, Serum 0.84 mg/dL (0.55-1.02); EST Glomerular Filtration Rate 72 mL/min (>60); Est Glom Filt Rate - Afr Amer 87 mL/min (>60); Globulin 3.6 g/dL (2.2-4.2); Glucose 104 mg/dL (74-106); Magnesium 2.2 mg/dL (1.6-2.6); Protein, Total 7.2 g/dL (6.4-8.2); Sodium Level 142 mmol/L (136-145); Thyroid Stim Hormone (TSH) 1.16 uIU/mL (0.358-3.74)
[2022-04-15] MEDS: Cefazolin 2 GM in 0.9% Normal Saline 100 ML IV (09:17)
[2022-04-15 09:22] LABS: Hemoglobin A1c 5.8 % (3.8-5.6)
--- NOTE | 2022-04-15 09:30 | HYST_PTH ---
PATIENT: JAY MCKEON LOC: [facility] [place] U#:[id number] AGE/SX: 67/F ROOM: RE04/15/[address]: Dr. Sandra Doyle MD : [id number] BED: DIS: 04/15/2022 SPEC #: [id number] RECD: 04/15/22 13:39 STATUS: LISA REAnnie #: [id number] DIONISIO: 04/15/22 09:[address]: Sandra Doyle DEPT: SURGICAL PATHOLOGY RECD BY: Allyson Aguilera ENTERED: 04/16/22 09:04 SP TYPE: HYSTERECT OTHR DR: Dr. Jennifer Jaquez MD Tissues: Uterus, NOS Procedures: Surgery Specimen Level V HEADER OPERATION: ERAS, vaginal hysterectomy, BSO PRE-OP DIAGNOSIS: Endometrial polyp TISSUE SUBMITTED: Uterus, cervix, right fallopian tube and ovary, fibroid MICROSCOPIC DIAGNOSIS Uterus, hysterectomy: Cervix ? minimal chronic inflammation and nabothian cysts. Endometrium ? inactive endometrium with focal cystic change. Myometrium ? focal superficial adenomyosis. Right ovary ? corpora albicantia. Right fallopian tube - No pathologic change. Fragments free in container ? one fragment with organizing fat necrosis with dystrophic microcalcifications. One nodule consistent with hyalinized fibroadenoma. AM:shiv 04/17/2022 MICROSCOPIC DESCRIPTION Slides are reviewed. GROSS DESCRIPTION Received in fixative is one container labeled with the patient's name and designated uterus. The specimen consists of a uterus with attached cervix and attached right ovary and fallopian tube. The uterus with cervix measures 7 x 5.5 x 4.2 cm and weighs 53 gm. The endocervical canal measures 3.4 cm in length and is grossly unremarkable. The triangular endometrial cavity measures 3 x 2.8 cm. The reddish-quinteros, velvety endometrium measures up to 0.1 cm in thickness. The myometrium measures 1.5 cm in average thickness and is free of mass lesions. The crinkled, smooth, glistening light quinteros ovary measures 2.5 x 1.6 x 1 cm. Serial sections of the ovary do not reveal mass lesions. The adjacent fallopian tube measures 4 cm in length and contains a normal fimbrial end. No tubo-ovarian adhesions are seen. Present free in the container are two light quinteros rubbery nodules ranging in size from 1.3 to 2.5 cm. Serial sections of the nodules reveal a rubbery, white cut surface. Transcript Evaluator sections are submitted in ten cassettes as follows: 1 - anterior cervix, 2 - posterior cervix, 3 & 4 - anterior uterine wall, 5 & 6 - posterior uterine wall, 7 - ovary and fallopian tube, 8 - smaller nodule free in container, 9 & 10 - customer success representative sections of larger nodule free in container. / AM:shiv 04/16/2022 TC:1 CPT: 11504
[2022-04-15] MEDS: Magnesium 1 GM over 15 mins IV (09:32)
[2022-04-15] MEDS: Lubricating Jelly 60 GM Tube 30 GM (09:40)
[2022-04-15] MEDS: Vasopressin 20 UNITS/ML Vial (09:59)
[2022-04-15] MEDS: Ondansetron 4 MG/2 ML Vial IV (11:25)
--- NOTE | 2022-04-15 11:32 | PCM.OPRPT ---
Report of Operation Date of Procedure: 04/15/22 Pre-Operative Diagnosis: see A/P Post-Operative Diagnosis: same Surgery/Procedure Performed:: TVH rso Description of Surgical Findings:: posterior cul de sac adhesions left sigmoid colon adhesions to the left ovary. right ovary WNL. Surgeon: Sandra Doyle Type of Anesthesia: General Special Medications: floseal Specimen's removed: uterus, right tube and ovary Drains: gonzalez Estimated Blood Loss (mL): 150 Fluids Replaced: crystalloid Description of Procedure: Patient was taken to the operating room and was placed under general anesthesia was prepped and draped in normal sterile fashion in the dorsal lithotomy position. Preoperative antibiotics and SCDs and Gonzalez catheter was placed inside the bladder. Weighted speculum was placed in the vagina and the anterior and posterior lip of the cervix was grasped with 2 Jamshid clamps and circumferentially injected with dilute vasopressin. A circumferential incision was made with a scalpel and the posterior cul-de-sac was attempted to be entered into but the correct plane could not be established. After some dissection attention was then paid to the anterior cul-de-sac which was dissected out sharply and entered into without difficulty. Was attempted to deliver the uterus anteriorly to able to dissect down posteriorly but this was unsuccessful. Uterosacral ligaments were then clamped cut and sutured bilaterally with 0 Monocryl and the cardinal ligaments clamped cut and suture-ligated bilaterally to serially distend the uterus. At this time the posterior cul-de-sac was able to be entered and it was noted to have some scar tissue with epiploica but no bowel adhesions noted. Uterus progressively removed by clamping bilaterally cutting and suturing with 0 Monocryl and then the right IP ligament was clamped cut and suture ligated doubly with 0 Monocryl and 0 Vicryl to remove the right tube and ovary. Additional suture was placed over the sidewall to obtain hemostasis. The left tube and ovary were adhesed within bowel adhesions over the sigmoid area and could not be safely removed. The utero-ovarian ligament was transected on the patient's left side and double ligated with 0 Monocryl and 0 Vicryl. An additional suture over the left pelvic sidewall was also used to obtain excellent pneumostasis. Attention was then paid to the posterior cul-de-sac where the entire bowel was inspected that was nearby and noted have good integrity with no abnormalities. Some of the peritoneum had been dissected apart due to the adhesiolysis posteriorly and was raw. This was oversewn with 2-0 Vicryl and then Floseal applied and pressure to obtain hemostasis. The vaginal cuff was then closed with 0 Vicryl pop-off's [id number] sutures. All instruments removed from the vagina Gonzalez removed with clear urine 300 cc noted the end the procedure. Patient was awoken and taken recovery in stable condition. Grafts/Implants Used: none Complications none Admit VTE Documentation VTE Present on Admission: No VTE Mechan Device Prophylaxis: SCD's VTE Pharm Prophylaxis ordered?: Yes Multi Select Codes Urinary/Genital Urinary/Genital CPT Codes: 54462 TVH+BS/O <250gr uterus
--- NOTE | 2022-04-15 11:42 | DCINST_ITS ---
Discharge Instructions Procedure Hysterectomy, Vaginal Diet Discharge Diet: No restrictions Activity Discharge Activity: Return to Normal Activity, May Not Drive (while taking narcotic pain medications.) and May Shower May resume sexual activity in: 6-8 weeks Dressing / Incision Call your doctor if your incision/area has: Continuous Slow Oozing, Sudden Increased Bleeding, Increased Pain/ Swelling, Increased Redness and Foul Smelling Discharge Call your doctor if you observe: Fever of 101 or Higher, Inability to urinate, Inability to have a bowel movement and Using more than 1 pad per hour Follow Up Care Please Follow Up With: Sandra Doyle MD Test Results: Test results from this visit will be discussed in further detail at your follow- up appointment, if applicable. Discharge Plan Admission Attending Provider: Sandra Doyle Primary Care Provider: Jennifer Jaquez Discharge Orders/Prescriptions Prescriptions: New oxycodone-acetaminophen [Percocet] 5-325 mg tablet 1 tab PO Q6H PRN (Reason: pain) 7 Days Qty: 20 0RF oxycodone-acetaminophen [Percocet] 5-325 mg tablet 1 tab PO Q6H PRN (Reason: pain) 7 Days Qty: 20 0RF Continued levothyroxine 50 mcg capsule 75 mcg PO DAILY metformin 500 mg tablet 500 mg PO BID multivitamin with minerals 1 EACH tablet 1 ea PO DAILY atorvastatin 20 mg Tablet 20 mg PO QHS pantoprazole [Protonix] 20 mg Tablet,Delayed Release (Dr/Ec) 20 mg PO PRN PRN (Reason: GERD) Referrals / Follow Up: Jennifer Jaquez MD [Primary Care Provider] - Disposition Disposition (needs filled in before D/C Order can be placed): Home, Self Care
[2022-04-15 12:14] LABS: Bedside Glucose 103 mg/dL (74-106)
[2022-04-15 12:15] LABS: Bedside Glucose 147 mg/dL (74-106)
[2022-04-15] MEDS: Lactated Ringers 1,000 ML 70 ML IV (12:15)
--- NOTE | 2022-04-15 12:53 | RAD_ITS ---
STUDY: X-RAY - ABDOMEN/PELVIS REASON FOR EXAM: Female, 67 years old. Post op foreign body assessment. TECHNIQUE: Single AP view of the abdomen / pelvis. COMPARISON: None. FINDINGS: Ringlike device is seen in the region of the gastroesophageal junction. There is an unremarkable bowel gas pattern. No radiopaque foreign body is seen. The visualized liver, spleen and kidneys are grossly normal in size and morphology. Normal soft tissue structures. Normal visualized osseous structures. RAD/Abdomen Single View (Portable) IMPRESSION: No radiopaque foreign body is seen. Electronically Signed: Levy Barnes MD at 13:16 EST ,
[2022-04-15 14:41] LABS: Hematocrit 41.2 % (37-47); Hemoglobin 13.3 g/dL (12.0-15.0); Mean Corp Hgb Conc 32.3 g/dL (32-36); Mean Platelet Vol. 11.5 fl (6.2-12.0); Platelet Count 192 K/mm3 (150-450); RBC Distribution Width CV 12.7 % (11.6-14.6); RBC Distribution Width SD 45.7 fl (35.1-43.9); Red Blood Count 4.16 M/mm3 (4.2-5.4); White Blood Count 10.8 K/mm3 (4.4-11.0)
--- NOTE | 2022-04-15 18:13 | SUR.PHASEII ---
PT UP TO BATHROOM TWICE, BOTH TIMES SHE STATES THAT SHE TRICKLED BLADDER SCANNED AFTER THE SECOND TRICKLE FOR 252
== END 2022-04-15 19:40 | disposition home or self-care (01) ==
LOC: SDC 07:26 → AC 07:27
PROVIDERS: Anesthesiology; PCP Family Medicine; Referring Provider Obstetrics & Gynecology; Visit Provider Obstetrics & Gynecology
PROC: (CPT 58260; principal; 2022-04-15 09:10)
DX: N84.0 Polyp of corpus uteri (principal); N80.03 Adenomyosis of the uterus; N88.8 Other specified noninflammatory disorders of cervix uteri; N95.0 Postmenopausal bleeding; R73.03 Prediabetes; K21.9 Gastro-esophageal reflux disease without esophagitis; Z79.84 Long term (current) use of oral hypoglycemic drugs; Z79.890 Hormone replacement therapy; Z79.899 Other long term (current) drug therapy; Z78.0 Asymptomatic menopausal state
CPT/HCPCS: 58262; 74018; 80053; 80076; 82962; 83036; 83735; 84443; 85025; 85027; 85610; 85730; 86850; 86900; 86901; 88307; 93005; J7120; J2405; J3475

== ENCOUNTER → 2022-08-07 | Outpatient (CLI) | payer MEDICARE, BC, SELFPAY ==
--- NOTE | 2022-08-07 09:21 | BI_ITS ---
MAMMOGRAPHY - BILATERAL SCREENING REASON FOR EXAM: Female, 67 years old. Routine annual screening examination. PERTINENT HISTORY: Sister with breast cancer. Aunts with breast cancer. TECHNIQUE: Digital bilateral breast shea (3D mammographic acquisition) in the CC and MLO projections. 2-D mediolateral oblique (MLO) and craniocaudad (CC) views of both breasts were obtained. CAD: Full Field Digital Mammography with Computer Added Detection was performed. COMPARISON: Comparison is made with prior study dated July 12, 2021 and July 11, 2020. FINDINGS: Breast Composition: There are scattered areas of fibroglandular density. There are no dominant masses or suspicious calcifications. Stable benign-appearing bilateral axillary lymph nodes. No other significant abnormalities are identified. There has been no significant change since the prior study. BI/SCRN MAMM (CAD)W/SHEA BILAT IMPRESSION: Stable bilateral screening mammogram. Yearly follow-up mammogram recommended. (A) ASSESSMENT CATEGORY: BIRADS Category 2: Benign. A letter regarding these results will be sent to the patient by the facility within 30 days. Approximately 10% of breast cancers are not detected by mammography. A normal mammogram should not delay biopsy of a clinically suspicious abnormality. [id number] Electronically Signed: Levy Barnes MD at 11:14 EDT ,
--- NOTE | 2022-08-07 09:34 | BD_ITS ---
STUDY: DUAL ENERGY X-RAY ABSORPTIOMETRY / DXA REASON FOR EXAM: Female, 67 years old. Estrogen deficiency TECHNIQUE: Bone Mineral Density (BMD) measurements of lumbar spine and bilateral hips were obtained. COMPARISON: None. FINDINGS: Lumbar Spine (L1-L4): g/cm2 (1.032) / T-score (0.0) / Z-score (1.8) Findings are suggestive of normal bone density with a low fracture risk. Left Femur Total: g/cm2 (0.977) / T-score (0.3) / Z-score (1.6) Left Femoral Neck: g/cm2 (0.66) / T-score (-1.7) / Z-score (-0.1) Right Femur Total: g/cm2 (0.927) / T-score (-0.1) / Z-score (1.2) Right Femoral Neck: g/cm2 (0.699) / T-score (-1.4) / Z-score (0.2) BD/Dexa Bone Density Study IMPRESSION: The patient is considered osteopenic as outlined below according to World Cesar Organization (WHO) criteria with a moderate fracture risk. Reference Information: The T-score is the number of standard deviations above or below the standard which is normal for young adults at their peak bone mineral density. The World Health Organization (WHO) interprets the T-scores as follows: Above -1 Normal bone density Between -1 and -2.5 Osteopenia Equal to / or below -2.5 Osteoporosis As a practical clinical guideline, osteopenia may be graded as follows: Mild -1 through -1.5 Moderate -1.6 through -2.0 Severe -2.1 through -2.4 The Z-score is the number of standard deviations above or below age-matched controls. A Z-score of less than -1.5 would be considered abnormal. References: 1. NIH Osteoporosis and Related Bone Diseases www osteo.org 2. International Society for Clinical Densitometry www iscd.org 3. National Osteoporosis Foundation www nof.org Electronically Signed: Levy Barnes MD at 9:29 EDT ,
== END | disposition home or self-care (01) ==
LOC: OPBD 09:19
PROVIDERS: PCP Family Medicine; Visit Provider Obstetrics & Gynecology
DX: Z12.31 Encounter for screening mammogram for malignant neoplasm of breast (principal); Z90.79 Acquired absence of other genital organ(s); Z90.721 Acquired absence of ovaries, unilateral; Z80.3 Family history of malignant neoplasm of breast
CPT/HCPCS: 77063; 77067; 77080

== ENCOUNTER 2023-07-09 09:34 | Day surgery (SDC) | payer MEDICARE, BC, SELFPAY ==
--- NOTE | 2023-07-09 09:10 | DCINST_ITS ---
Discharge Instructions Diet Discharge Diet: No restrictions Activity Discharge Activity: Return to Normal Activity Dressing / Incision Call your doctor if you observe: Fever of 101 or Higher, Inability to urinate and Inability to have a bowel movement Follow Up Care Please Follow Up With: Luz Maria Campos MD When: the office will call her to set up follow up for next week. Test Results: Test results from this visit will be discussed in further detail at your follow- up appointment, if applicable. Discharge Plan Admission Attending Provider: Luz Maria Campos Primary Care Provider: Jennifer Jaquez Discharge Orders/Prescriptions Prescriptions: Continued levothyroxine 50 mcg capsule 75 mcg PO DAILY metformin 500 mg tablet 500 mg PO QHS multivitamin with minerals 1 EACH tablet 1 ea PO DAILY rosuvastatin 20 mg tablet 40 mg PO QHS Patient Comments: TAKE ONE TABLET BY MOUTH AT BEDTIME fesoterodine 4 mg tablet extended release 24 hr 8 mg PO DAILY Patient Comments: TAKE 1 TABLET BY MOUTH ONCE DAILY IN THE MORNING WITH BREAKFAST cephalexin 500 mg capsule 500 mg PO TID calcium 600 mg capsule 600 mg PO DAILY ascorbic acid (vitamin C) [C-1000] 1,000 mg tablet 1 g PO DAILY cholecalciferol (vitamin D3) [Vitamin D3] 50 mcg (2,000 unit) tablet 50 mcg PO DAILY Referrals / Follow Up: Jennifer Jaquez MD [Primary Care Provider] - Disposition Disposition (needs filled in before D/C Order can be placed): Home, Self Care
--- NOTE | 2023-07-09 09:11 | PCM.OPRPT ---
Report of Operation Date of Procedure: 07/09/23 Pre-Operative Diagnosis: overactive bladder, urge incontinence, nocturia Post-Operative Diagnosis: same Surgery/Procedure Performed:: cystoscopy with Botox 100 unit injection Description of Surgical Findings:: Surgeon: Luz Maria Campos Type of Anesthesia: MAC Special Medications: Botox 100 units Description of Procedure: The patient is a 68-year-old female who is struggling with refractory overactive bladder. She underwent testing in the office and has decided to proceed with Botox 100 unit injection for management. Informed consent was obtained. The patient was taken to the operating room and placed on the operating room table. Anesthesia monitored the head, neck, airway, IV access and vital signs throughout the case. Once anesthesia was appropriately administered, the patient was placed into dorsolithotomy position was prepped and draped in usual sterile fashion. The cystoscope was inserted through the urethra under direct visualization into the urinary bladder. The bladder mucosa was visualized in its entirety revealing no evidence of mass, erythema or ulceration, or foreign body. A total of 20 injections of 0.5 cc of Botox were made throughout the urinary bladder in systematic fashion. 1 cc of normal saline flush was injected at the end. The patient's bladder was then emptied and the cystoscope was removed. There were no complications during this procedure. The patient was awakened and taken to the recovery room in good condition. Grafts/Implants Used: None Complications None Admit VTE Documentation VTE Present on Admission: Yes VTE Mechan Device Prophylaxis: SCD's VTE Pharm Prophylaxis ordered?: No Reason prophylaxis not ordered:: Treatment Not Indicated
--- OUTSIDE RECORDS SUMMARY | 2023-07-09 10:22 | XMS RPT_ITS | CCD ---
Author Name Unknown Address [address] [place] [address] Organization [facility] Care Team Providers Care Golf Teacher Name Role Phone Cristina Alvarez Unavailable Cristina Alvarez Unavailable RUDY SEE Unavailable Unavailable Physician, PCP Unknown Unavailable Unavailab Cristina Ayala Unavailable Cristina Alvarez Unavailable Free, Text Entry Unavailable Unavailable Monik Ray Unavailable Unavailable Jennifer Jaquez Primary Care Provider Jennifer Jaquez Primary Care Provider JENNIFER JAQUEZ Primary Care Unavailable TOBY RIOS Attending Unavailable Jennifer Jaquez Primary Care Provider Jennifer Jaquez MD Primary Care Provider YARMAN V BELT INSPECTOR~[id number], RAINER LOCK Admitting Unavailable YARMAN V BELT INSPECTOR~[id number], RAINER LOCK Attending Unavailable YARMHAYDE SHEN APRN Consulting Unavailable GISELE SAAVEDRA DR~[id number] JENNIFER Wolfe Primary Care U HAYDE Crowe APRN Consulting Unavailable YARMAN V BELT INSPECTOR~[id number], RAINER LOCK Admitting Unavailable YARMAN V BELT INSPECTOR~[id number], RAINER LOCK Attending Unavailable GISELE SAAVEDRA DR~[id number] JENNIFER Wolfe Primary Care U bernardo JAQUEZ MD, DR JENNIFER Wolfe Consulting Unavailable GISELE SAAVEDRA, DR JENNIFER Wolfe Consulting Unavailable YARMHAYDE SHEN APRN Consulting Unavailable YARMAN V BELT INSPECTOR, HAYDE Consulting Unavailable YARMAN V BELT INSPECTOR~[id number], YARMHERMELINDA LOCK Admitting Unavailable YARMAN V BELT INSPECTOR~[id number], RAINER LOCK Attending Unavailable GISELE SAAVEDRA, ~[id number] JENNIFER D Primary Care U bernardo MENARD MD, [place] Best Consulting Unavailable SAILAJA SAAVEDRA, [place] Best Consulting Unavailable GISELE SAAVEDRA, DR JENNIFER Wolfe Consulting Unavailable GISELE SAAVEDRA, DR JENNIFER Wolfe Consulting Unavailable YARMAN V BELT INSPECTOR, HAYDE Consulting Unavailable YARMAN V BELT INSPECTOR, HAYDE Consulting Unavailable BRITNEY TRAN Referring Unavailable MURNEN, JENNIFER D Primary Care Unavailable Gisele SAAVEDRA, Jennifer Aiden Primary Care Provider [phone] JENNIFER JAQUEZ Primary Care Unavailable ADAM BAEZ Attending Unavailable Maria Isabel Cheney MD Unavailable SILVIO GERARD Attending Unavailable MURNEN, JENNIFER D Primary Care Unavailable MURNEN, JENNIFER D Primary Care Unavailable SILVIO GERARD Referring Unavailable MURNEN, JENNIFER D Primary Care Unavailable SILVIO GERARD Attending Unavailable MURNEN, JENNIFER D Primary Care Unavailable MARIA ISABEL CHENEY Referring Unavailable MURNEN, JENNIFER D Primary Care Unavailable MARIA ISABEL CHENEY Referring Unavailable MARIA ISABEL CHENEY Attending Unavailable MURNEN, JENNIFER D Primary Care Unavailable COOPERRIDER II, CIRO Roa Referring Unavailabl e COOPERRIDER II, CIRO Roa Attending Unavailabl e MURNEN, JENNIFER D Primary Care Unavailable COOPERRIDER II, CIRO Roa Attending Unavailabl e MURNEN, JENNIFER D Primary Care Unavailable SILVIO GERARD Referring Unavailable MURNEN, JENNIFER D Primary Care Unavailable ANJANA LOUISE Attending Unavail able MURNEN, JENNIFER D Primary Care Unavailable SILVIO GERARD Referring Unavailable MURNEN, JENNIFER D Primary Care Unavailable SILVIO GERARD Referring Unavailable MURNEN, JENNIFER D Primary Care Unavailable SILVIO GERARD Attending Unavailable MURNEN, JENNIFER D Primary Care Unavailable MURNEN, JENNIFER D Primary Care Unavailable AMY STARR Referring Unavailable MURNEN, JENNIFER D Primary Care Unavailable MURNEN, JENNIFER D Primary Care Unavailable SILVIO GERARD Attending Unavailable TANVINEN, JENNIFER D Primary Care Unavailable JUDY JORGE Attending Unavailabl e Allergies Allergy Classification Reported Allergen(s) Allergy Type Date of Onset Reaction(s) Facility (20 sources) Codeine; Translations: [CODEINE] Drug Allergy [address] [facility] (20 sources) Clindamycin; Translations: [CLINDAMYCIN] Drug Allergy 0 Diarrhea [facility] Work Phone: (20 sources) Simvastatin; Translations: [SIMVASTATIN] Drug Allergy 5 Intolerance [facility] Work Phone: (20 sources) Tapes [Other] Propensity to adverse reactions 6 Other: See Comments [facility] Work Phone: (1 source) OTHER; Translations: [OTHER] Propensity to adverse reactions (disorder) 6 [facility] Repository Medications Current Medications Medication Drug Class(es) Dates Sig (Normalized) Sig (Original) benoxinate hydrochloride 4 mg/ml / fluorescein sodium 3 mg/ml ophthalmic solution (1 source) Diagnostic Dye Start: 04-27-2023 End: 04-28-2023 fluorescein-benoxin ate 0.3-0.4 % 1 Drop (FLURESS) buPROPion (2 sources) Aminoketone buPROPion Quanti ty: 0 Refills: 0 Ordered: 27-Sep-2021 Monik Ray Generic Substitution Allowed CPAP/BIPAP/OTHER (20 sources) Start: 05-28-2022 End: 10-12-2049 CPAP/BIPAP/OTHER Indications: NOLAN (obstructive sleep apnea) , Excessive daytime sleepiness , Chronic insomnia , RLS (restless legs syndrome) New start Auto CPAP with settings of 5-15 cm H20. Lifetime supplies for Auto CPAP, including patient preferred mask, head gear, heated tubing, humidity, filters, chin strap. Dx: Obstructive Sleep Apnea G47.33 DME: [facility]- phone [phone] Fax download report to [phone] and/or set up appropriate acct access. 1 Each 0 05/28/2022 10/12/2049 Active Completed/Discontinued Medications Medication Drug Class(es) Dates Sig (Normalized) Sig (Original) atorvastatin 20 mg oral tablet (20 sources) HMG-CoA Reductase Inhibitor Start: 11-04-2022 take 1 tablet by mouth once daily atorvastatin (LIPITOR) 20 mg tablet Take 1 tablet by mouth once daily. 30 tablet 11 11/04/2022 Active Problems Active Problems Problem Classification Problem Date Documented Date Episodic/Chronic Acquired foot deformities (2 sources) Hallux valgus; Translations: [Hallux valgus (acquired), left foot] Chronic Blindness and vision defects (3 sources) Bilateral regular astigmatism; Translations: [Regular astigmatism, bilateral] 04-15-2023 Episodic Cancer of thyroid (2 sources) Malignant tumor of thyroid gland; Translations: [Malignant neoplasm of thyroid gland] Chronic Cataract (1 source) Nuclear sclerotic cataract; Translations: [Age-related nuclear cataract, bilateral] 04-15-2023 Chronic Complications of surgical procedures or medical care (20 sources) Postoperative hypothyroidism; Translations: [Postprocedural hypothyroidism] Onset: 10-04-2014 10-04-2014 Chronic Disorders of lipid metabolism (20 sources) Hyperlipidemia; Translations: [Hyperlipidemia, unspecified] Onset: 12-27-2014 12-27-2014 Chronic Joint disorders and dislocations; trauma-related (2 sources) Derangement of knee; Translations: [Other internal derangements of left knee] Onset: 09-19-2016 09-26-2016 Chronic Miscellaneous mental health disorders (1 source) Chronic insomnia; Translations: [Psychophysiologic insomnia] Chronic Neoplasms of unspecified nature or uncertain behavior (2 sources) Neoplasm of uncertain behavior of connective and other soft tissue; Translations: [Neoplasm of uncertain behavior of connective and other soft tissue] Onset: 01-22-2022 Episodic Nutritional deficiencies (1 source) Vitamin D deficiency, unspecified; Translations: [Vitamin D deficiency] Onset: 05-26-2023 Chronic Occlusion or stenosis of precerebral arteries (3 sources) Carotid atherosclerosis; Translations: [Occlusion and stenosis of unspecified carotid artery] Onset: 02-09-2023 01-30-2023 Chronic Osteoarthritis (1 source) Primary osteoarthritis, right shoulder; Translations: [PRIMARY OSTEOARTHRITIS RT SHOULDER] Onset: 02-02-2023 Chronic Other acquired deformities (1 source) Spondylolisthesis, cervical region; Translations: [SPONDYLOLISTHESIS CERVICAL REGION] Onset: 02-02-2023 Episodic Other aftercare (1 source) History of malignant neoplasm of thyroid; Translations: [Encounter for follow-up examination after completed treatment for malignant neoplasm] Episodic Other circulatory disease (2 sources) Other specified symptoms and signs involving the circulatory and respiratory systems; Translations: [OTH SPEC SX SIGNS INVLV CIRC RS] Onset: 02-05-2023 Episodic Other connective tissue disease (2 sources) Plantar fasciitis; Translations: [Plantar fascial fibromatosis] Episodic Other connective tissue disease (2 sources) Pain in left foot; Translations: [Pain in left foot] Episodic Other connective tissue disease (1 source) Disease suspected; Translations: [Other symptoms and signs involving the nervous system] Episodic Other connective tissue disease (1 source) Pain in right foot; Translations: [Pain in right foot] 01-21-2023 Episodic Other eye disorders (1 source) Posterior vitreous detachment of left eye; Translations: [Vitreous degeneration, left eye] 04-27-2023 Chronic Other eye disorders (1 source) Dermatochalasis of right upper eyelid; Translations: [Dermatochalasis] 04-15-2023 Episodic Other hereditary and degenerative nervous system conditions (20 sources) Restless legs; Translations: [Restless legs syndrome] Onset: 10-16-2017 10-16-2017 Chronic Other lower respiratory disease (1 source) Snoring; Translations: [Snoring] Episodic Other nutritional; endocrine; and metabolic disorders (20 sources) Obesity; Translations: [Obesity, unspecified] Onset: 12-27-2014 05-13-2021 Chronic Other nutritional; endocrine; and metabolic disorders (14 sources) Disorder of carbohydrate metabolism; Translations: [Other specified disorders of carbohydrate metabolism (HCC)] Onset: 09-08-2022 Chronic Other nutritional; endocrine; and metabolic disorders (1 source) Other obesity due to excess calories; Translations: [Class 2 obesity due to excess calories without serious comorbidity with body mass index (BMI) of 36.0 to 36.9 in adult] Onset: 05-14-2021 Chronic Other nutritional; endocrine; and metabolic disorders (1 source) Body mass index (BMI) 36.0-36.9, adult; Translations: [Class 2 obesity due to excess calories without serious comorbidity with body mass index (BMI) of 36.0 to 36.9 in adult] Onset: 05-14-2021 Chronic Other screening for suspected conditions (not mental disorders or infectious disease) (3 sources) Patient encounter status; Translations: [Encounter for screening for diseases of the blood and blood-forming organs and certain disorders involving the immune mechanism] Onset: 05-26-2023 Episodic Residual codes; unclassified (2 sources) Daytime somnolence; Translations: [Other hypersomnia] Chronic Residual codes; unclassified (2 sources) Obstructive sleep apnea syndrome; Translations: [Obstructive sleep apnea (adult) (pediatric)] Chronic Residual codes; unclassified (1 source) Frequent night waking; Translations: [Insomnia, unspecified] Episodic Residual codes; unclassified (1 source) Localized edema; Translations: [Localized edema] Onset: 03-04-2023 Episodic Residual codes; unclassified (1 source) Localized edema; Translations: [Localized edema] 03-04-2023 Episodic Spondylosis; intervertebral disc disorders; other back problems (3 sources) Other cervical disc degeneration, unspecified cervical region; Translations: [Spondylosis without myelopathy or radiculopathy, cervical region] Onset: 02-02-2023 Chronic Spondylosis; intervertebral disc disorders; other back problems (2 sources) Cervicalgia; Translations: [CERVICALGIA] Onset: 01-29-2023 Episodic Thyroid disorders (20 sources) Thyroid nodule; Translations: [Nontoxic single thyroid nodule] Onset: 12-27-2014 01-31-2021 Chronic Unclassified (2 sources) No current problems or disability 09-24-2016 Unclassified (1 source) Unknown / UNK(Unknown) Onset: 08-04-2017 Unclassified (2 sources) OTHER LOW BACK PAIN; Translations: [OTHER LOW BACK PAIN] Onset: 09-29-2022 Viral infection (4 sources) Disease caused by 2019-nCoV 09-27-2021 Past or Other Problems Problem Classification Problem Date Documented Da te Episodic/Chronic Diabetes mellitus without complication (13 sources) Impaired fasting glycemia; Translations: [Impaired fasting glucose] Onset: 02-18-2023 Episodic Genitourinary symptoms and ill-defined conditions (20 sources) Urgent desire to urinate; Translations: [Urgency of urination] Onset: 12-26-2016 12-26-2016 Episodic Joint disorders and dislocations; trauma-related (2 sources) Unspecified tear of unspecified meniscus, current injury, left knee, initial encounter; Translations: [Unspecified tear of unspecified meniscus, current injury, left knee, initial encounter] Onset: 09-19-2016 09-26-2016 Episodic Malaise and fatigue (1 source) Weakness; Translations: [WEAKNESS] Onset: 09-29-2022 Episodic Other connective tissue disease (20 sources) Plantar fascial fibromatosis; Translations: [Plantar fascial fibromatosis] Onset: 05-01-2022 Episodic Other connective tissue disease (1 source) Myalgia, other site; Translations: [MYALGIA OTHER SITE] Onset: 09-29-2022 Episodic Other connective tissue disease (1 source) Other muscle spasm; Translations: [OTHER MUSCLE SPASM] Onset: 09-29-2022 Episodic Other connective tissue disease (1 source) Pain in right foot; Translations: [Foot pain, right] Onset: 01-21-2023 Episodic Other non-traumatic joint disorders (2 sources) Knee pain; Translations: [Pain in left knee] Onset: 09-19-2016 09-19-2016 Episodic Unclassified (1 source) [id number] Onset: 08-05-2017 Unclassified (1 source) OTHER LOW BACK PAIN; Translations: [OTHER LOW BACK PAIN] Onset: 09-18-2022 Results Test Name Value Interpretation Reference Range Facil ity Vital Signs Date Time Vital Sign Value Performing Clinician Facility 01-21-2023 10:51-0400 Body temperature 98.29 [degF] Amy Starr APRN.PHOTORADIO OPERATOR Work Phone: [facility] 01-21-2023 10:51-0400 Body weight 97.98 kg Amy Starr APRN.PHOTORADIO OPERATOR Work Phone: [facility] 01-21-2023 10:51-0400 Diastolic blood pressure 76 mm[Hg] Amy Kothari-Harrison THOMASN.PHOTORADIO OPERATOR Work Phone: [facility] 01-21-2023 10:51-0400 Heart rate 80 /min Amy Starr APRN.PHOTORADIO OPERATOR Work Phone: [facility] 01-21-2023 10:51-0400 Respiratory rate 16 /min Amy Starr APRN.PHOTORADIO OPERATOR Work Phone: [facility] 01-21-2023 10:51-0400 SaO2% (BldA) [Mass fraction] 95 % Amy Starr V BELT INSPECTOR.PHOTORADIO OPERATOR Work Phone: [facility] 01-21-2023 10:51-0400 Systolic blood pressure 132 mm[Hg] Amy Starr APRN.PHOTORADIO OPERATOR Work Phone: [facility] 06-06-2022 09:51-0500 Body weight 98.79 kg Silvio Gerard MD Work Phone: [facility] 06-06-2022 09:51-0500 Diastolic blood pressure 89 mm[Hg] Silvio Gerard MD Work Phone: [facility] 06-06-2022 09:51-0500 Heart rate 83 /min Silvio Gerard MD Work Phone: [facility] 06-06-2022 09:51-0500 Systolic blood pressure 118 mm[Hg] Silvio Gerard MD Work Phone: [facility] 09-28-2021 12:52-0400 Diastolic blood pressure 92 mm[Hg] Text Entry Free [facility] 09-28-2021 12:52-0400 Heart rate 71 /min Text Entry Free [facility] 09-28-2021 12:52-0400 Respiratory rate 16 /min Text Entry Free [facility] 09-28-2021 12:52-0400 SaO2% (BldA) [Mass fraction] 96 % Text Entry Free [facility] 09-28-2021 12:52-0400 Systolic blood pressure 133 mm[Hg] Text Entry Free [facility] 09-28-2021 11:10-0400 Body temperature 98.06 [degF] Text Entry Free [facility] 09-27-2021 14:57-0400 Body height 160 cm Text Entry Free [facility] 09-27-2021 14:57-0400 Body temperature 98.6 [degF] Text Entry Free [facility] 09-27-2021 14:57-0400 Diastolic blood pressure 81 mm[Hg] Text Entry Free [facility] 09-27-2021 14:57-0400 Heart rate 93 /min Text Entry Free [facility] [place] 09-27-2021 14:57-0400 Respiratory rate 16 /min Text Entry Free [facility] [place] 09-27-2021 14:57-0400 SaO2% (BldA) [Mass fraction] 95 % Text Entry Free [facility] 09-27-2021 14:57-0400 Systolic blood pressure 120 mm[Hg] Text Entry Free [facility] 09-19-2016 14:30-0400 BMI (Body Mass Index) 35.18 kg/m2 [facility] Work Phone: 09-19-2016 14:30-0400 Body weight 92.99 kg [facility] Work Phone: 09-19-2016 14:30-0400 Height 162.56 cm [facility] Work Phone: 09-19-2016 14:30-0400 Weight 92.99 kg [facility] Work Phone: Encounters Encounter Date Encounter Type Care Provider Facility Start: 07-08-2023 Telephone encounter Maria Isabel Cheney MD Work Phone: Cardiology Procedures Date Procedure Procedure Detail Performing Clinician Start: 05-26-2023 Lipid 1996 panel - S madan or Plasma Maria Isabel Cheney MD Work Phone: Start: 04-15-2023 Computerized ophthal casey imaging retina Ciro García OD Work Phone: Start: 03-04-2023 Dup-scan xtr veins unilateral/limited study Britney Tran DO Work Phone: Start: 02-11-2023 Lipid 1996 panel - S madan or Plasma Maria Isabel Cheney MD Work Phone: Start: 11-03-2022 Lipid 1995 panel - S madan or Plasma Pcp (Historical) Start: 06-06-2022 Us soft tissue head & neck real time imge angelo Gerard MD Work Phone: Start: 03-12-2022 Us soft tissue head & neck real time imge angelo Gerard MD Work Phone: Start: 02-05-2022 Adult depression scr eening assessment Lisa Pierce MD Work Phone: Start: 12-17-2020 Colonoscopy Ismael Gay roe Work Phone: Start: 04-20-2019 Mammography Ismael Gay roe Work Phone: Start: 09-19-2016 End: 09-19-2016 Documentation of current medications Cristina Alvarez Start: 09-19-2016 End: 09-26-2016 Arthrocentesis aspir&/inj major jt/bursa w/o Britney Jessi Jake Work Phone: History of laser ass isted in situ keratomileusis Hx of LASIK Ciro García OD Work Phone: Plan of Treatment Date Care Activity Detail Author Start: 12-15-2031 DTaP,Tdap,and Td Vaccines (2 - Td or Tdap) DTaP,Tdap,and Td Vaccines (2 - Td or Tdap) [facility] Start: 12-15-2031 Urine microalbumin profile DTaP,Tdap,Td Vaccine (2 - Td or Tdap) [facility] Start: 05-26-2028 Lipid panel Lipid Screening [facility] Start: 02-12-2028 Lipid 1996 panel - Serum or Plasma Lipid Screening [facility] Start: 11-04-2027 Lipid 1996 panel - Serum or Plasma Lipid Screening [facility] Start: 11-04-2027 LIPID SCREEN LIPID SCREEN [facility] Start: 07-26-2027 LIPID SCREEN LIPID SCREEN [facility] Start: 03-06-2027 LIPID SCREEN LIPID SCREEN [facility] Start: 05-26-2026 Diabetes Screening Diabetes Screening [facility] Start: 02-16-2026 Diabetes Screening Diabetes Screening [facility] Start: 02-11-2026 Diabetes Screening Diabetes Screening [facility] Start: 01-31-2026 LIPID SCREEN LIPID SCREEN [facility] Start: 07-25-2025 DIABETES SCREEN DIABETES SCREEN [facility] Start: 07-25-2025 Diabetes Screening Diabetes Screening [facility] Start: 03-06-2025 DIABETES SCREEN DIABETES SCREEN [facility] Start: 02-01-2024 DIABETES SCREEN DIABETES SCREEN [facility] Start: 09-28-2023 End: 12-28-2023 Lipid 1996 panel - Serum or Plasma LIPID PANEL BASIC Lab Routine Mixed hyperlipidemia Expected: 09/28/2023, Expires: 12/28/2023 [facility] Work Phone: Immunizations Immunization Date Immunization Notes Care Provider Fa cility 03-01-2022 influenza virus vacc ine, unspecified formulation Pcp (Historical) [facility] 08-14-2020 COVID-19 vaccine, ag e 12+ yr (PFIZER-BIONTECH - PURPLE TOP) Ismael Betancur Work Phone: [facility] 07-24-2020 COVID-19 vaccine, ag e 12+ yr (PFIZER-BIONTECH - PURPLE TOP) Ismael Betancur Work Phone: [facility] Payers Date Payer Category Payer Blue Cross Blue Shield [place] BLUE TRADITIONAL [id number] 2020-Present [address] [place] [address] [id number] 2020 Medicare [id number] 2020 Unknown 2020 Medicaid [id number] 2017 Unknown [id number] 1959 Medicare [id number] 1959 Unknown [id number] 1956 Unknown [id number] 1956 Unknown [id number] 1956 Unknown [id number] 1956 Unknown [id number] 1956 Unknown [id number] 1956 Unknown [id number] Social History Date Type Detail Facility [facility] Tobacco smoking consumption unknown [facility] Start: 12-27-2014 End: 06-06-2022 Tobacco smoking status NHIS Never smoked tobacco [facility] Start: 12-27-2014 End: 06-06-2022 Tobacco use and exposure Smokeless tobacco non-user [facility] Start: 01-27-2022 End: 01-21-2023 Alcohol intake Current non-drinker of alcohol (finding) [facility] Start: 1955 Sex Assigned At Not on file [facility] Start: 01-17-2022 End: 03-20-2022 Exposure to SARS-CoV-2 (event) Not sure [facility] Start: 01-28-2022 End: 02-07-2022 Exposure to SARS-CoV-2 (event) Yes [facility] Start: 08-06-2022 End: 11-04-2022 History of Social function [facility] Start: 08-06-2022 End: 11-04-2022 Tobacco use panel [facility] Adult Depression Screening Assessment 0 [facility] Start: 04-15-2023 End: 05-19-2023 Alcohol intake Current drinker of alcohol (finding) [facility] Start: 02-18-2023 Alcohol Comment 2 drinks per month [facility] Clinical Notes 12-03-2020 to 07-08-2023 Telephone Encounter - Jovi Keene - 07/08/2023 12:17 PM ESTTelephone Encounter - Eliana Galindo RN - 06/24/2023 4:41 PM ESTTelephone Encounter - Cristina Beverly - 06/24/2023 8:31 AM EST Note Date & Type Note Facility 07-08-2023 Miscellaneous Notes Records requested received from [facility] by fax. Patient has a future appointment on: 08/28/23. Date of last OV: 02/18/23. Records sent to above listed facility via Phone. Confirmation received Jovi Keene July 08, 2023 12:19 PM documented in this encounter [facility] 06-24-2023 Miscellaneous Notes Cristina, joelle to assist with rescheduling appt with Dr. Cheney and ultrasound for a time when the patient is feeling well again. Eliana Galindo RN June 24, 2023 Patient Contact Number: [phone] Patient last seen within the last year: Yes Date of last office visit: 02.18.23 Reason For Call: Medication Issue/Question: Pt called stating last time she seen doctor Leigh Ann they changed her cholesterol medicine, it is helping to improve just not where it needs to be. Would like to know if any further changes are needed. she wanted to ask this question at todays apt but had to cancel apt because both her and are sick with the flu. *stated she is feeling well other deluca and has no other concerns Physician: Maria Isabel Cheney MD Patient was informed that non-urgent calls may be returned within the next three business days. Yes Cristina Beverly documented in this encounter [facility] 05-19-2023 Note HNO ID: [id number] Author: Anjana Louise MD Service: ? Author Type: Physician Type: Progress Notes Filed: 05/19/2023 5:00 PM Note Text: Patient Summary: Jay Sorensen is a 68 year old female with obesity who presents for an initial evaluation of overweight/obesity to treat and prevent co-morbidities and is interested in open to all options. Motivation for seeking treatment for the disease of overweight/obesity : Knee pain, urinary incontinence, - want to lose weight to be more mobile and feel better overall Goal weight: 150 Lowest recall weight: 150 Highest recall weight: 235 Patient identified barriers to weight loss: knee, depression Weight History: She reports a family history of obesity (sisters- diabetes. One sister had bariatric surgery) and early adulthood weight gain. She states her weight gain is related to the following factors, including weight retention , exposure to a weight gain promoting medication.- PREDNISONE, reduced physical activity, consumption of unhealthy foods, night monitor work schedule, and tobacco cessation . - Last Wt 05/19/23 : 226 lb (102.5 kg) 5% weight loss = 215 lbs, 10% weight loss = 203 lbs WEIGHT GRAPH: Wakes up 5am- eats 8am oatmeal with fruit , biscotti and honey, dash, coffee with milk Snack- fruit banana, orange or apple Lunch- soup with sandwich Snack- cookie or two Dinner- snacks on veggies while cooking- will eat stromboli to fish with bake potato, salad, squash, sweet potato, pork , green beans Snack- potato chips, cheese its, popcorn, pretzels, or sweet treat Diet/Nutrition overview: Fluids: sprite, water (12oz) Quality of diet: 24hr recall suggests in between diet. Characterization of diet:unhealthy snacking, excessive cravings, and evening snacking. Glue Mounter Operator of impaired eating habits:boredom, emotion, and stress Eating Disorder no Preferred foods: vegetables Cravings: biscotti ?Sleep: goes to bed 10:30-11:30 wakes up 3-5 am Duration: 6 hours. NOLAN YES ; CPAP YES ??Stress: Stress:yes , Cause:Work retired and does not work and having hard time not doing anything Obesity Related Comorbidities: Prior Weight Loss Surgery:gastric band in [place] - could only stay below 200lb - had issues with GERD now not inflated PAST MEDICAL HISTORY Diagnosis Date Abdominal pain, epigastric ACUTE GASTRITIS W/O HEMORRHAGE 05/20/2006 Depressive disorder, not elsewhere classified Diaphragmatic hernia without mention of obstruction or gangrene Diffuse cystic mastopathy 03/08/2009 Hyperopia, right 12/03/2020 Nocturia 08/07/2016 PMH - PAST MEDICAL HISTORY OF thyroid cancer PAST SURGICAL HISTORY Procedure Laterality Date D AND C ESOPHAGOGASTRODUODENOSCOPY TRANSORAL DIAGNOSTIC 05/20/2006 EGD LAPAROSCOPIC GASTRIC BAND PROCEDURE 2011 LASIK PROCEDURE PAST SURGICAL HISTORY OF part of thryoid removed PAST SURGICAL HISTORY OF cyst removed from tongue FAMILY HISTORY Problem Relation Age of Onset Diabetes Mother Heart Mother other (reflux) Father Cancer Maternal Grandfather Breast Cancer Maternal Aunt Social History Tobacco Use Smoking status: Never Smokeless tobacco: Never Vaping Use Vaping Use: Never used Substance Use Topics Alcohol use: Yes Comment: 2 drinks per month Drug use: No Medications: Patient was on medication years ago but doesn't remember what Weight Promoting Medications: Other none Diet/weight loss History: Past weight loss attempts? anti-obesity medications doesn't remember . Has had gastric band 2010 .weight watchers Exercise: Regular exercise: no Strength/resistance exercise:yes resistance bands Barriers to regular exercise? yes -knee surgery right knee torn meniscus Work-related activity:None . Gym Membership: no Activity Tracker: yes OCCUPATION stay at home Current Contraception: postmenopausal Obesity ROS/ FHx GEN: Fatigue:no CV: h/o palpitations/cardiac arrhythmia, Chest pain: no HTN: no PULM: Asthma:no GI: GERD:no ; Gallstones:no ; Fatty liver disease:no Pancreatitis: no MSK: Joint Pain:yes : Nephrolithiasis: no Symptoms of PCOS: no NEURO: Migraines/[place]: no; H/o seizures: no Glaucoma:no; Cataracts no Symptoms of or History of pseudotumor cerebri:no Family or personal History of MEN2 or Medullary thyroid cancer: part of thyroid removed PE BP 138/80 Pulse 93 Wt 226 lb (102.5 kg) SpO2 97% BMI 39.41 kg/m? Waist Circumference: 46 GENERAL: Female in NAD. Mixed central and gluteofemoral adiposity. SKIN: acanthosis nigricans no, Skin tags: no Hirsutism: no HEENT: PERRL, No supraclavicular adiposity. No dorsal adiposity. RESPIRATORY: CBTA CARDIAC: RRR ABDOMEN: Large pannus; EXTREMITIES: peripheral edema: yes -mild Results: reviewed with the patient Results Only on 04/19/2023 Component Date Value Ref Range Status Shipping Receiving Clerk 04/19/2023 In process Value:Provider VERNELL blake pat (more content not included)... [facility] 04-27-2023 Note HNO ID: [id number] Author: Ciro García II, OD Service: ? Author Type: WASTE RECYCLER Type: Progress Notes Filed: 04/27/2023 1:28 PM Note Text: Assessment and Plan H43.812 Posterior vitreous detachment of left eye (primary encounter diagnosis) Comment: Posterior vitreal detachment causing new vitreal floater OS. Retina flat with no apparent retinal tear or traction. Discussed expected course of healing. Discussed symptoms of retinal tear/detachment and if seen patient will return to clinic without delay. Otherwise recheck healing at next annual exam. I have confirmed and edited as necessary the relevant ophthalmic history, ROS, and the neuro exam findings as obtained by others. I have seen and examined Jay Sorensen. I have discussed the case and the management of this patient's care with the Resident/Fellow, if applicable. I also have reviewed and agree with the assessment and plan as stated above and agree with all of its relevant components. Ciro García II, OD [facility] 04-27-2023 Instructions Ciro García II, OD - 04/27/2023 1:28 PM EST Assessment and Plan H43.812 Posterior vitreous detachment of left eye (primary encounter diagnosis) Comment: Posterior vitreal detachment causing new vitreal floater OS. Retina flat with no apparent retinal tear or traction. Discussed expected course of healing. Discussed symptoms of retinal tear/detachment and if seen patient will return to clinic without delay. Otherwise recheck healing at next annual exam. I have confirmed and edited as necessary the relevant ophthalmic history, ROS, and the neuro exam findings as obtained by others. I have seen and examined Jay Sorensen. I have discussed the case and the management of this patient's care with the Resident/Fellow, if applicable. I also have reviewed and agree with the assessment and plan as stated above and agree with all of its relevant components. Ciro García II OD documented in this encounter [facility] 04-27-2023 History of Presen t illness Narrative Assessment and Plan H43.812 Posterior vitreous detachment of left eye (primary encounter diagnosis) Comment: Posterior vitreal detachment causing new vitreal floater OS. Retina flat with no apparent retinal tear or traction. Discussed expected course of healing. Discussed symptoms of retinal tear/detachment and if seen patient will return to clinic without delay. Otherwise recheck healing at next annual exam. I have confirmed and edited as necessary the relevant ophthalmic history, ROS, and the neuro exam findings as obtained by others. I have seen and examined Jay Sorensen. I have discussed the case and the management of this patient's care with the Resident/Fellow, if applicable. I also have reviewed and agree with the assessment and plan as stated above and agree with all of its relevant components. Ciro García II, OD documented in this encounter [facility] 04-15-2023 Note HNO ID: [id number] Author: Ciro García II, OD Service: ? Author Type: WASTE RECYCLER Type: Progress Notes Filed: 04/15/2023 2:27 PM Note Text: Assessment and Plan H25.13 Cataract, nuclear sclerotic, both eyes (primary encounter diagnosis) Comment: Slow progression both eyes. Patient will tolerate for now. Recheck yearly or sooner if needed. R73.03 Prediabetes Comment: Stable. Discontinued Metformin use. Monitor yearly. Z98.890 Hx of LASIK Comment: Clear stable corneas. Monitor. H02.831, H02.834 Dermatochalasis of both upper eyelids Comment: Monitor for progression. H52.223 Regular astigmatism, bilateral H52.03 Hyperopia, bilateral H52.4 Presbyopia Comment: Stable glasses power. I have confirmed and edited as necessary the relevant ophthalmic history, ROS, and the neuro exam findings as obtained by others. I have seen and examined Jay Sorensen. I have discussed the case and the management of this patient's care with the Resident/Fellow, if applicable. I also have reviewed and agree with the assessment and plan as stated above and agree with all of its relevant components. Ciro García II, OD [facility] 04-15-2023 Instructions Ciro García II, OD - 04/15/2023 2:24 PM EST Assessment and Plan H25.13 Cataract, nuclear sclerotic, both eyes (primary encounter diagnosis) Comment: Slow progression both eyes. Patient will tolerate for now. Recheck yearly or sooner if needed. R73.03 Prediabetes Comment: Stable. Discontinued Metformin use. Monitor yearly. Z98.890 Hx of LASIK Comment: Clear stable corneas. Monitor. H02.831, H02.834 Dermatochalasis of both upper eyelids Comment: Monitor for progression. H52.223 Regular astigmatism, bilateral H52.03 Hyperopia, bilateral H52.4 Presbyopia Comment: Stable glasses power. I have confirmed and edited as necessary the relevant ophthalmic history, ROS, and the neuro exam findings as obtained by others. I have seen and examined Jay Sorensen. I have discussed the case and the management of this patient's care with the Resident/Fellow, if applicable. I also have reviewed and agree with the assessment and plan as stated above and agree with all of its relevant components. Ciro García II, OD documented in this encounter [facility] 04-15-2023 History of Presen t illness Narrative Assessment and Plan H25.13 Cataract, nuclear sclerotic, both eyes (primary encounter diagnosis) Comment: Slow progression both eyes. Patient will tolerate for now. Recheck yearly or sooner if needed. R73.03 Prediabetes Comment: Stable. Discontinued Metformin use. Monitor yearly. Z98.890 Hx of LASIK Comment: Clear stable corneas. Monitor. H02.831, H02.834 Dermatochalasis of both upper eyelids Comment: Monitor for progression. H52.223 Regular astigmatism, bilateral H52.03 Hyperopia, bilateral H52.4 Presbyopia Comment: Stable glasses power. I have confirmed and edited as necessary the relevant ophthalmic history, ROS, and the neuro exam findings as obtained by others. I have seen and examined Jay Sorensen. I have discussed the case and the management of this patient's care with the Resident/Fellow, if applicable. I also have reviewed and agree with the assessment and plan as stated above and agree with all of its relevant components. Ciro García II, OD documented in this encounter [facility] 02-18-2023 Note HNO ID: [id number] Author: Maria Isabel Cheney MD Service: ? Author Type: Physician Type: Progress Notes Filed: 02/18/2023 8:54 AM Note Text: [facility] [place] [facility] Department of Cardiovascular Medicine SECTION OF CLINICAL CARDIOLOGY OUTPATIENT VISIT DATE February 18, 2023 OUTPATIENT VISIT TYPE NEW PRIMARY CARE PHYSICIAN: Jennifer Jaquez MD [address] [facility] [address] [place] [address] REFERRING PHYSICIAN: Maria Isabel Cheney [address] [facility] [address] CHIEF COMPLAINT: No chief complaint on file. HISTORY OF PRESENT ILLNESS: Ms. Sorensen is a 68 year old female who presents today for second opinion. She denies chest pain, shortness of breath, orthopnea, cough, edema, palpitations, PND, lightheadedness or syncope. NURSING INTAKE: Ms. Sorensen is a 68 year old female from [place], [place] here today for cardiovascular evaluation related to recent bilateral carotid ultrasound done on 02/05/2023. Jay has a significant medical history of: Hypercholesterolemia - atorvastatin 20 mg; LDL 142 mg/DL (02/11/23) Prediabetes - metformin 500 mg ; Hgb AC 5.7% (02/11/23) Family History Mother - Diabetes - in her 60s Father- HTN, heart attacks, dementia, in his 80s Maternal grandmother -Heart failure She reports the following symptoms: -States that she has palpitations once every 2-3 months. The palpitations come at random without any exacerbating factors. 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 She follows a regular diet without restrictions. She participates in walking as tolerated for exercise/activity. She has been limited due to knee pain. PAST MEDICAL HISTORY Diagnosis Date Abdominal pain, epigastric ACUTE GASTRITIS W/O HEMORRHAGE 05/20/2006 Depressive disorder, not elsewhere classified Diaphragmatic hernia without mention of obstruction or gangrene Diffuse cystic mastopathy 03/08/2009 Hyperopia, right 12/03/2020 Nocturia 08/07/2016 PMH - PAST MEDICAL HISTORY OF thyroid cancer PAST SURGICAL HISTORY Procedure Laterality Date D AND C ESOPHAGOGASTRODUODENOSCOPY TRANSORAL DIAGNOSTIC 05/20/2006 EGD LAPAROSCOPIC GASTRIC BAND PROCEDURE 2011 LASIK PROCEDURE PAST SURGICAL HISTORY OF part of thryoid removed PAST SURGICAL HISTORY OF cyst removed from tongue SOCIAL HISTORY Social History Tobacco Use Smoking status: Never Smokeless tobacco: Never Vaping Use Vaping Use: Never used Substance Use Topics Alcohol use: No Drug use: No FAMILY HISTORY Problem Relation Age of Onset Breast Cancer Maternal Aunt Cancer Maternal Grandfather Diabetes Mother Heart Mother other (reflux) Father ALLERGIES: ALLERGIES Allergen Reactions Clindamycin Diarrhea Simvastatin Intolerance Myalgia Tapes [Other] Other: See Comments Some tape tears skin off Codeine MEDICATIONS: metFORMIN ER (GLUCOPHAGE XR) 500 mg 24 hr tablet Take 1 tablet by mouth once daily. levothyroxine (SYNTHROID) 75 mcg tablet Take 1 tablet by mouth once daily. atorvastatin (LIPITOR) 20 mg tablet Take 1 tablet by mouth once daily. CPAP/BIPAP/OTHER New start Auto CPAP with settings of 5-15 cm H20. Lifetime supplies for Auto CPAP, including patient preferred mask, head gear, heated tubing, humidity, filters, chin strap. Dx: Obstructive Sleep Apnea G47.33 DME: [facility]- phone [phone] Fax download report to [phone] and/or set up appropriate acct access. MAGNESIUM ORAL Take 1 tablet by mouth once daily. multivitamin tablet Take 1 tablet by mouth once daily. REVIEW OF SYSTEMS: POSITIVES IN BOLD GENERAL: Negative for: Weight loss or gain, Fever or Chills, Weakness and Sleep difficulties. HEENT: Negative for: Headache, Impaired Vision, Glasses, Hearing Impairment, Ringing in Ears, Nosebleeds, Poor dental care, Bleeding Gums, Dentures NECK: Negative for: Swelling, Pain, Stiffness RESPIRATORY: Negative for: Cough, Blood in Sputum, Shortness of breath, Wheezing, Apnea GASTROINTESTINAL: Negative for: Trouble swallowing, Heartburn, Change in bowel habits, Blood in stool, Dark black stools MUSCULOSKELETAL: Negative for: Muscle or joint pain, Stiffness , Joint swelling NEUROLOGIC/PSYCHIATRIC: Negative for: Weakness, Paralysis, Numbness, Tingling, Tremor, Nervousness, Depressed mood, Memory loss SKIN: Negative for: Rashes, Itching HEMATOLOGICAL/LYMPHATIC: Negative for: Easy bruising , Easy bleeding ENDOCRINE: Negative for: Heat or cold intolerance, Excessive sweating, Frequent urination, Frequent thirst PHYSICAL EXAMINATION: There were no vitals taken for this visit. General: Well appearing, in no acute distress, speaking in complete sentences. Neck: No jugular venous distention, no carotid bruits, carotids have a normal upstroke, no palpable thyromegaly. Lungs: Clear to auscultation bilaterally, no wheezing or rhonch (more content not included)... [facility] 02-17-2023 Note HNO ID: [id number] Author: Silvio Gerard MD Service: ? Author Type: Physician Type: Progress Notes Filed: 02/17/2023 6:53 AM Note Text: Virtual Visit utilizing both audio and video components [employer] I have communicated my name and active licensure. The patient's identity and physical location were verified at the time of this visit. Either the patient or their legal distribution sales representative has been informed of the risks and benefits of -- and alternatives to -- treatment through a remote evaluation and consents to proceed with the evaluation remotely. Patient location: at home [facility] Assessment / Plan Assessment: 1) Hypercholesterolemia. Muscle toxicity responsive to creatine AND CoQ-10, but now doesn't need these. On 20mg/d atorvastatin, lipids haven't changed, but was on vacation in [place] for 3 weeks, says it was very meat-heavy. I'll have her stay on current dose of atorvastatin, just have a better diet, will recheck in 3 months. 2) Prediabetes, metformin ER 500mg daily, higher doses associated with significant bloating, I will suggest she see Dr. Glo Escoto for medical weight loss. Has BMI=38, and significant family history of diabetes type 2. 3) Surgical hypothyroidism, wTFTs look good on 75 mcg daily Unchanged 1) Thyroid microcarcinoma, subtle nodule left lower pole 06/06/22, planned f/u May 2023. Treatment / Plan: 1) stay on the current dose of atorvastatin 20 mg daily 2) take just one metformin ER 500mg daily, or stop if it is still causing bloating. 3) see Dr. Glo Escoto for medical weight loss 4) return to me in 3 months with labs before the visit. Silvio Gerard MD Data iPhone=[employer] Data Review: Component Latest Ref Rng AND Units 11/03/2022 02/11/2023 Cholesterol, Total <200 mg/dL 235 (H) 243 (H) Triglyceride <150 mg/dL 92 130 HDL Cholesterol >39 mg/dL 77 75 Non HDL Cholesterol <130 mg/dL 158 (H) 168 (H) LDL Cholesterol <100 mg/dL 140 (H) 142 (H) Hemoglobin A1C 4.3 - 5.6 % 5.7 (H) Free T4 0.9 - 1.7 ng/dL 1.6 TSH 0.270 - 4.200 mIU/L 0.906 History Prediabetes : taking metformin ER 500g once a day getting bloating on twice a day, so just taking once a day, still has some bloating intermittently has significant FHx diabetes Hypercholesterolemia mother of complications of ?DM1, maternal GM had CHF father had MS age 70s, he was only one of 14 sibs with vasc disease both parents seemed to have high cholesterol. used Croat[place] Creatine: it has made a world of difference in my legs , one scoop a day, but now no longer needs it on atorvastatin 20mg/d Hypothyroidism on levothyroxine 75 mcg daily Context: 1) FHx breast CA Thyroid CA History Surgery (01/14/06): right thyroid lobectomy and isthmus resection, Dr. Rico Johnson. Pathology (01/14/06): papillary CA, 0.3cm in right lobe, no other CA found.. Thyroglobulin Component Thyroglobulin TG Antibody Screen Ref Rng 1.6 - 59.9 ng/mL <14.4 IU/mL 03/17/2006 12.4 < 20.0 09/10/2007 6.9 <8.0 07/21/2008 8.2 <8.0 07/28/2009 9.6 0.7 08/17/2010 8.0 <1.0 11/27/2011 6.6 1.2 09/28/2014 6.6 1.2 12/26/2016 4.6 <1.0 10/22/2017 4.3 <1.0 01/31/2021 5.2 <1.0 Vitamin D Component Vitamin D 25 Hydroxy Latest Ref Rng AND Units 31.0 - 80.0 ng/mL 07/21/2008 <7.0 (L) 07/28/2009 53.7 08/17/2010 48.3 12/18/2011 53.0 02/05/2013 35.2 09/28/2014 29.4 (L) ROS PHYSICAL EXAM There were no vitals taken for this visit. PAST MED / SURG / FAMILY / SOCIAL HISTORY PAST MEDICAL HISTORY Diagnosis Date Abdominal pain, epigastric ACUTE GASTRITIS W/O HEMORRHAGE 05/20/2006 Depressive disorder, not elsewhere classified Diaphragmatic hernia without mention of obstruction or gangrene Diffuse cystic mastopathy 03/08/2009 Hyperopia, right 12/03/2020 Nocturia 08/07/2016 PMH - PAST MEDICAL HISTORY OF thyroid cancer PAST SURGICAL HISTORY Procedure Laterality Date D AND C ESOPHAGOGASTRODUODENOSCOPY TRANSORAL DIAGNOSTIC 05/20/2006 EGD LAPAROSCOPIC GASTRIC BAND PROCEDURE 2010 LASIK PROCEDURE PAST SURGICAL HISTORY OF part of thryoid removed PAST SURGICAL HISTORY OF cyst removed from tongue FAMILY HISTORY Problem Relation Age of Onset Breast Cancer Maternal Aunt Cancer Maternal Grandfather Diabetes Mother Heart Mother other (reflux) Father Social History Tobacco Use Smoking status: Never Smokeless tobacco: Never Vaping Use Vaping Use: Never used Substance Use Topics Alcohol use: No Drug use: No MEDICATIONS AND ALLERGIES Current Outpatient Medications Medication Sig Dispense Refill atorvastatin (LIPITOR) 20 mg tablet Take 1 tablet by mouth once daily. 30 tablet 11 CPAP/BIPAP/OTHER New start Auto CPAP with settings of 5-15 cm H20. Lifetime supplies for Auto CPAP, including patient preferred mask, head gear, heated tubing, humidity, filters, chin strap. Dx: Obstructive Sleep Apnea G47.33 DME: [facility]- phone [phone] NPI: [id number] (more content not included)... [facility] 02-12-2023 Miscellaneous Notes Records received from [employer] by fax. Records uploaded to [employer] and [employer]. Patient has a future appointment on: 02/18/23. Date of last OV: -. Jovi Keene February 12, 2023 4:25 PM documented in this encounter [facility] 02-02-2023 Note HNO ID: [id number] Author: Patsy Messer Service: ? Author Type: ? Type: Progress Notes Filed: 02/02/2023 4:30 PM Note Text: POPULATION HEALTH NAVIGATION OUTREACH Action/FYI 2nd call, left vm Patient Identified by Name and : NO Outreach Outcome/Action Unable to reach patient: Left message MyChart message sent Did you use a PCP flex slot to schedule this appointment? No Reason for Outreach Care Gap or Scheduling/Wellness visits Payer: Payor: MEDICARE / Plan: MEDICARE A AND B / Product Type: Medicare / Care Gap Reviewed:: Specialty Scheduling Reminder: Reminder note to check Health Maintenance for items below Health Maintenance items due: Annual PCP Team Chronic Disease Visit Never done Hepatitis C Screening Never done DTaP,Tdap,Td Vaccine(1 - Tdap) Never done Colorectal Cancer Screening Never done Shingrix Vaccine(1 of 2) Never done Mammogram Screening due on 04/20/2020 Bone Density Screening Never done Pneumococcal Vaccine: 65+(1 - PCV) Never done Advance Directive Discussion Never done Depression Assessment Never done Influenza Vaccine(1) due on 01/16/2023 Navigation Signature: Patsy Messer February 02, 2023 4:30 PM [facility] 02-02-2023 History of Presen t illness Narrative POPULATION HEALTH NAVIGATION OUTREACH Action/FYI 2nd call, left vm Patient Identified by Name and : NO Outreach Outcome/Action Unable to reach patient: Left message MyChart message sent Did you use a PCP flex slot to schedule this appointment? No Reason for Outreach Care Gap or Scheduling/Wellness visits Payer: Payor: MEDICARE / Plan: MEDICARE A AND B / Product Type: Medicare / Care Gap Reviewed:: Specialty Scheduling Reminder: Reminder note to check Health Maintenance for items below Health Maintenance items due: Annual PCP Team Chronic Disease Visit Never done Hepatitis C Screening Never done DTaP,Tdap,Td Vaccine(1 - Tdap) Never done Colorectal Cancer Screening Never done Shingrix Vaccine(1 of 2) Never done Mammogram Screening due on 04/20/2020 Bone Density Screening Never done Pneumococcal Vaccine: 65+(1 - PCV) Never done Advance Directive Discussion Never done Depression Assessment Never done Influenza Vaccine(1) due on 01/16/2023 Navigation Signature: Patsy Messer February 02, 2023 4:30 PM documented in this encounter [facility] 02-02-2023 Note Patient Outreach (AC CC) JAY SORENSEN ([id number]) 1955 F Date Time Provider Department 02/02/23 [facility] During your visit today, we recorded the following information about you: Patsy Messer 02/02/2023 4:30 PM Signed POPULATION HEALTH NAVIGATION OUTREACH Action/FYI 2nd call, left vm Patient Identified by Name and : NO Outreach Outcome/Action Unable to reach patient: Left message Xuanyixia message sent Did you use a PCP flex slot to schedule this appointment? No Reason for Outreach Care Gap or Scheduling/Wellness visits Payer: Payor: MEDICARE / Plan: MEDICARE A AND B / Product Type: Medicare / Care Gap Reviewed:: Specialty Scheduling Reminder: Reminder note to check Health Maintenance for items below Health Maintenance items due: Annual PCP Team Chronic Disease Visit Never done Hepatitis C Screening Never done DTaP,Tdap,Td Vaccine(1 - Tdap) Never done Colorectal Cancer Screening Never done Shingrix Vaccine(1 of 2) Never done Mammogram Screening due on 04/20/2020 Bone Density Screening Never done Pneumococcal Vaccine: 65+(1 - PCV) Never done Advance Directive Discussion Never done Depression Assessment Never done Influenza Vaccine(1) due on 01/16/2023 Navigation Signature: Patsy Messer February 02, 2023 4:30 PM Allergies As of Date: 02/02/2023 Noted Allergy Reaction CLINDAMYCIN 09/25/2009 6 - Diarrhea SIMVASTATIN 12/27/2014 5 - Intolerance Comments: Myalgia Tapes [Other] 01/05/2006 14 - Other: See Comments Comments: Some tape tears skin off CODEINE 11/04/2005 Date Reviewed: 01/21/2023 Reviewed by: Charlette Sandoval - Fully Assessed Prescriptions as of 02/02/2023 - atorvastatin (LIPITOR) 20 mg tablet Take 1 tablet by mouth once daily. - CPAP/BIPAP/OTHER New start Auto CPAP with settings of 5-15 cm H20. Lifetime supplies for Auto CPAP, including patient preferred mask, head gear, heated tubing, humidity, filters, chin strap. Dx: Obstructive Sleep Apnea G47.33 DME: [facility]ore[facility]- phone [phone] Fax download report to [phone] and/or set up appropriate acct access. - metFORMIN ER (GLUCOPHAGE XR) 500 mg 24 hr tablet Take 2 tablets by mouth once daily. - MAGNESIUM ORAL Take 1 tablet by mouth once daily. - levothyroxine (SYNTHROID) 75 mcg tablet Take 1 tablet by mouth once daily. - multivitamin tablet Take 1 tablet by mouth once daily. Problem List As Of Date 02/02/2023 Noted Resolved NONTOX UNINODULAR GOITER [E04.1] 11/14/2005 05/21/2006 Postsurgical hypothyroidism [E89.0] 10/04/2014 Thyroid nodule [E04.1] 12/27/2014 Hyperlipidemia [E78.5] 12/27/2014 Obesity [E66.9] 12/27/2014 Urinary frequency [R35.0] 08/07/2016 12/29/2016 Nocturia [R35.1] 08/07/2016 12/11/2016 Urinary urgency [R39.15] 12/26/2016 Diffuse cystic mastopathy [N60.19] 03/08/2009 01/11/2021 Restless leg syndrome [G25.81] 10/16/2017 Hyperopia, right [H52.01] 12/03/2020 01/11/2021 Plantar fascial fibromatosis [M72.2] 05/01/2022 Other specified disorders of carbohydrate metab*09/08/2022 Encounter Status:Closed by PATSY MESSER on 02/02/23 [facility] 01-29-2023 Note PROCEDURE: CERVICAL WITH 2 OR 3 VIEWS, 01/29/2023, 10:18 AM EDT. CLINICAL INDICATIONS: Neck pain. COMPARISON: None. TECHNIQUE: Cervical spine, 4 views. FINDINGS: Disc degeneration and spondylitic changes most apparent C3-C4, C5-C6, C6-C7. 0.2 cm grade 1 C3-C4 retrolisthesis noted. Fracture, bone destruction is not evident. C4-C5 dorsal nuchal ligament calcification seen. Uncovertebral and facet arthropathy is seen with levoconvex curvature. Bilateral carotid artery calcifications are seen. Regional soft tissues otherwise unremarkable. IMPRESSION: 1. Levoconvex curvature of the cervical spine. 2. Grade 1 C3-C4 retrolisthesis. 3. Multilevel disc degeneration and spondylosis, uncovertebral and facet arthropathy as described. 4. No acute osseous pathology. 5. Bilateral carotid artery calcification. [facility] 01-29-2023 Note PROCEDURE: SHOULDER RIGHT COMPLETE, 01/29/2023 10:19 AM EDT CLINICAL INDICATIONS: Right shoulder and neck pain. COMPARISON: None. TECHNIQUE: Right shoulder, 3 views. FINDINGS: Glenohumeral joint spaces preserved. Minimal marginal osteophyte seen. Severe acromioclavicular osteoarthrosis noted. Chest wall abnormality is not evident. Regional soft tissues normal. IMPRESSION: 1. Acromioclavicular osteoarthrosis. 2. No acute osseous pathology. [facility] 01-28-2023 Note HNO ID: [id number] Author: Patsy Messer Service: ? Author Type: ? Type: Progress Notes Filed: 01/28/2023 3:41 PM Note Text: POPULATION HEALTH NAVIGATION OUTREACH Action/FYI Left vm Patient Identified by Name and : NO Outreach Outcome/Action Unable to reach patient: Left message Digiscendt message sent Did you use a PCP flex slot to schedule this appointment? No Reason for Outreach Care Gap or Scheduling/Wellness visits Payer: Payor: MEDICARE / Plan: MEDICARE A AND B / Product Type: Medicare / Care Gap Reviewed:: Specialty Scheduling Reminder: Reminder note to check Health Maintenance for items below Health Maintenance items due: Annual PCP Team Chronic Disease Visit Never done Hepatitis C Screening Never done DTaP,Tdap,Td Vaccine(1 - Tdap) Never done Colorectal Cancer Screening Never done Shingrix Vaccine(1 of 2) Never done Mammogram Screening due on 04/20/2020 Bone Density Screening Never done Pneumococcal Vaccine: 65+(1 - PCV) Never done Advance Directive Discussion Never done Depression Assessment Never done Influenza Vaccine(1) due on 01/16/2023 Navigation Signature: Patsy Messer January 28, 2023 3:41 PM [facility] 01-28-2023 History of Presen t illness Narrative POPULATION HEALTH NAVIGATION OUTREACH Action/FYI Left vm Patient Identified by Name and : NO Outreach Outcome/Action Unable to reach patient: Left message MyChart message sent Did you use a PCP flex slot to schedule this appointment? No Reason for Outreach Care Gap or Scheduling/Wellness visits Payer: Payor: MEDICARE / Plan: MEDICARE A AND B / Product Type: Medicare / Care Gap Reviewed:: Specialty Scheduling Reminder: Reminder note to check Health Maintenance for items below Health Maintenance items due: Annual PCP Team Chronic Disease Visit Never done Hepatitis C Screening Never done DTaP,Tdap,Td Vaccine(1 - Tdap) Never done Colorectal Cancer Screening Never done Shingrix Vaccine(1 of 2) Never done Mammogram Screening due on 04/20/2020 Bone Density Screening Never done Pneumococcal Vaccine: 65+(1 - PCV) Never done Advance Directive Discussion Never done Depression Assessment Never done Influenza Vaccine(1) due on 01/16/2023 Navigation Signature: Patsy Messer January 28, 2023 3:41 PM documented in this encounter [facility] 01-28-2023 Note Patient Outreach (AC CC) JAY SORENSEN ([id number]) 1955 F Date Time Provider Department 01/28/23 PCP (HISTORICAL) [facility] During your visit today, we recorded the following information about you: Patsy Messer 01/28/2023 3:41 PM Signed POPULATION HEALTH NAVIGATION OUTREACH Action/FYI Left vm Patient Identified by Name and : NO Outreach Outcome/Action Unable to reach patient: Left message MyChart message sent Did you use a PCP flex slot to schedule this appointment? No Reason for Outreach Care Gap or Scheduling/Wellness visits Payer: Payor: MEDICARE / Plan: MEDICARE A AND B / Product Type: Medicare / Care Gap Reviewed:: Specialty Scheduling Reminder: Reminder note to check Health Maintenance for items below Health Maintenance items due: Annual PCP Team Chronic Disease Visit Never done Hepatitis C Screening Never done DTaP,Tdap,Td Vaccine(1 - Tdap) Never done Colorectal Cancer Screening Never done Shingrix Vaccine(1 of 2) Never done Mammogram Screening due on 04/20/2020 Bone Density Screening Never done Pneumococcal Vaccine: 65+(1 - PCV) Never done Advance Directive Discussion Never done Depression Assessment Never done Influenza Vaccine(1) due on 01/16/2023 Navigation Signature: Patsy Messer January 28, 2023 3:41 PM Allergies As of Date: 01/28/2023 Noted Allergy Reaction CLINDAMYCIN 09/25/2009 6 - Diarrhea SIMVASTATIN 12/27/2014 5 - Intolerance Comments: Myalgia Tapes [Other] 01/05/2006 14 - Other: See Comments Comments: Some tape tears skin off CODEINE 11/04/2005 Date Reviewed: 01/21/2023 Reviewed by: Charlette Sandoval - Fully Assessed Prescriptions as of 01/28/2023 - predniSONE (DELTASONE) 10 mg tablet Take 4 tabs daily for 3 days, then 2 tabs daily for 3 days, then 1 tab daily for 3 days with food. - atorvastatin (LIPITOR) 20 mg tablet Take 1 tablet by mouth once daily. - CPAP/BIPAP/OTHER New start Auto CPAP with settings of 5-15 cm H20. Lifetime supplies for Auto CPAP, including patient preferred mask, head gear, heated tubing, humidity, filters, chin strap. Dx: Obstructive Sleep Apnea G47.33 DME: [facility]- phone [phone] Fax download report to [phone] and/or set up appropriate acct access. - metFORMIN ER (GLUCOPHAGE XR) 500 mg 24 hr tablet Take 2 tablets by mouth once daily. - MAGNESIUM ORAL Take 1 tablet by mouth once daily. - levothyroxine (SYNTHROID) 75 mcg tablet Take 1 tablet by mouth once daily. - multivitamin tablet Take 1 tablet by mouth once daily. 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] 10/04/2014 Thyroid nodule [E04.1] 12/27/2014 Hyperlipidemia [E78.5] 12/27/2014 Obesity [E66.9] 12/27/2014 Urinary frequency [R35.0] 08/07/2016 12/29/2016 Nocturia [R35.1] 08/07/2016 12/11/2016 Urinary urgency [R39.15] 12/26/2016 Diffuse cystic mastopathy [N60.19] 03/08/2009 01/11/2021 Restless leg syndrome [G25.81] 10/16/2017 Hyperopia, right [H52.01] 12/03/2020 01/11/2021 Plantar fascial fibromatosis [M72.2] 05/01/2022 Other specified disorders of carbohydrate metab*09/08/2022 Encounter Status:Closed by PATSY MESSER on 01/28/23 [facility] 01-21-2023 Note HNO ID: [id number] Author: Tonya Mensah RT(Angela) Service: Radiology Author Type: Technologist Type: Progress Notes Filed: 01/21/2023 11:14 AM Note Text: Radiology Service Progress Note PATIENT NAME: Jay Sorensen DATE OF SERVICE: January 21, 2023 TIME: 11:06 AM PATIENT IDENTITY VERIFICATION COMPLETED USING TWO (2) IDENTIFIERS: Name and Date of confirmed by patient verbally. FALL SCREENING: Has the patient had 2 falls in the last year or 1 fall with injury or currently using an Ambulatory Assistive Device (Walker, Cane, Wheelchair, Crutches, etc.)? No PATIENT GENDER DATA: Female. status: : No status: NO. PATIENT RELEVANT IMPLANT DATA REVIEWED: Not Applicable RADIOLOGY DEPARTMENT: General X-ray: Exam(s) Completed: Lower Extremity X-Ray(s): Foot, Right and Wt. Bearing PERIPHERAL IV DATA: Not applicable SIGNED BY: RT Liz(R) January 21, 2023 11:06 AM [facility] 01-21-2023 Note HNO ID: [id number] Author: Amy Starr APRN.PHOTORADIO OPERATOR Service: ? Author Type: Nurse Practitioner Type: Progress Notes Filed: 01/21/2023 11:47 AM Note Text: Subjective Pain (foot) Pertinent negatives include no fever or itching. Jay Sorensen is a 68 year old female who presents with right foot pain for the past 2 days. She denies any injury but was recently hiking a lot over a lot of rocks. She rates her pain 7/10 with weight bearing, 0/10 at rest. Describes pain as sharp. Has history of plantar fasciitis in left foot in 2021. She took advil for pain. Review of Systems Constitutional: Negative for chills and fever. Respiratory: Negative. Cardiovascular: Negative. Musculoskeletal: Positive for joint pain. Negative for falls. Skin: Negative for itching and rash. BP 132/76 Pulse 80 Temp 36.8 ?C (98.3 ?F) Resp 16 Wt 98 kg (216 lb) SpO2 95% BMI 38.26 kg/m? PAST MEDICAL HISTORY Diagnosis Date Abdominal pain, epigastric ACUTE GASTRITIS W/O HEMORRHAGE 05/20/2006 Depressive disorder, not elsewhere classified Diaphragmatic hernia without mention of obstruction or gangrene Diffuse cystic mastopathy 03/08/2009 Hyperopia, right 12/03/2020 Nocturia 08/07/2016 PMH - PAST MEDICAL HISTORY OF thyroid cancer PAST SURGICAL HISTORY Procedure Laterality Date D AND C ESOPHAGOGASTRODUODENOSCOPY TRANSORAL DIAGNOSTIC 05/20/2006 EGD LAPAROSCOPIC GASTRIC BAND PROCEDURE 2011 LASIK PROCEDURE PAST SURGICAL HISTORY OF part of thryoid removed PAST SURGICAL HISTORY OF cyst removed from tongue ALLERGIES Clindamycin, Simvastatin, Tapes [Other], and Codeine MEDICATIONS atorvastatin (LIPITOR) 20 mg tablet Take 1 tablet by mouth once daily. CPAP/BIPAP/OTHER New start Auto CPAP with settings of 5-15 cm H20. Lifetime supplies for Auto CPAP, including patient preferred mask, head gear, heated tubing, humidity, filters, chin strap. Dx: Obstructive Sleep Apnea G47.33 DME: [facility]- phone [phone] Fax download report to [phone] and/or set up appropriate acct access. metFORMIN ER (GLUCOPHAGE XR) 500 mg 24 hr tablet Take 2 tablets by mouth once daily. MAGNESIUM ORAL Take 1 tablet by mouth once daily. levothyroxine (SYNTHROID) 75 mcg tablet Take 1 tablet by mouth once daily. multivitamin tablet Take 1 tablet by mouth once daily. FAMILY HISTORY Problem Relation Age of Onset Breast Cancer Maternal Aunt Cancer Maternal Grandfather Diabetes Mother Heart Mother other (reflux) Father Social History Tobacco Use Smoking status: Never Smokeless tobacco: Never Vaping Use Vaping Use: Never used Substance Use Topics Alcohol use: No Drug use: No Objective Physical Exam Vitals and nursing note reviewed. Constitutional: General: She is not in acute distress. Appearance: Normal appearance. She is obese. She is not ill-appearing. Cardiovascular: Rate and Rhythm: Normal rate. Pulmonary: Effort: Pulmonary effort is normal. Musculoskeletal: General: Tenderness present. No swelling or signs of injury. Right foot: Normal range of motion. No deformity. Feet: Feet: Right foot: Skin integrity: No blister, skin breakdown, erythema, warmth, callus, dry skin or fissure. Toenail Condition: Right toenails are normal. Skin: General: Skin is warm and dry. Findings: No erythema or rash. Neurological: Mental Status: She is alert. ASSESSMENT/PLAN: 1. Foot pain, right - ICD9: 729.5, ICD10: M79.671 - suspect plantar fasciitis - XR FOOT GENERAL 3V AP/LAT/OBL RIGHT Radiologist RESULT: No acute fracture or dislocation. Joint spaces are maintained. Small plantar calcaneal spur. IMPRESSION: No acute osseous abnormality Bond Trader: LEONARDA Transcribe Date/Time: Jan 21 2023 11:34A Dictated by : ERIN SHANE MD - CONSULT TO PODIATRY -Patient advised to perform stretching excercises, icing, and to wear athletic-type shoes with supportive insoles. No barefoot walking. Amy Starr APRN.JUAN RAMON [facility] 01-21-2023 Instructions Amy Starr APRN.JUAN RAMON - 01/21/2023 11:21 AM EDT ASSESSMENT/PLAN: 1. Foot pain, right - ICD9: 729.5, ICD10: M79.671 - suspect plantar fasciitis - XR FOOT GENERAL 3V AP/LAT/OBL RIGHT Radiologist RESULT: No acute fracture or dislocation. Joint spaces are maintained. Small plantar calcaneal spur. IMPRESSION: No acute osseous abnormality Bond Trader: LEONARDA Transcribe Date/Time: Jan 21 2023 11:34A Dictated by : ERIN SHANE MD - CONSULT TO PODIATRY -Patient advised to perform stretching excercises, icing, and to wear athletic-type shoes with supportive insoles. No barefoot walking. Amy Starr APRN.PHOTORADIO OPERATOR documented in this encounter [facility] 01-21-2023 History of Presen t illness Narrative Images from the original note were not included. Subjective Pain (foot) Pertinent negatives include no fever or itching. Jay Sorensen is a 68 year old female who presents with right foot pain for the past 2 days. She denies any injury but was recently hiking a lot over a lot of rocks. She rates her pain 7/10 with weight bearing, 0/10 at rest. Describes pain as sharp. Has history of plantar fasciitis in left foot in 2021. She took advil for pain. Review of Systems Constitutional: Negative for chills and fever. Respiratory: Negative. Cardiovascular: Negative. Musculoskeletal: Positive for joint pain. Negative for falls. Skin: Negative for itching and rash. BP 132/76 Pulse 80 Temp 36.8 C (98.3 F) Resp 16 Wt 98 kg (216 lb) SpO2 95% BMI 38.26 kg/m PAST MEDICAL HISTORY Diagnosis Date Abdominal pain, epigastric ACUTE GASTRITIS W/O HEMORRHAGE 05/20/2006 Depressive disorder, not elsewhere classified Diaphragmatic hernia without mention of obstruction or gangrene Diffuse cystic mastopathy 03/08/2009 Hyperopia, right 12/03/2020 Nocturia 08/07/2016 PMH - PAST MEDICAL HISTORY OF thyroid cancer PAST SURGICAL HISTORY Procedure Laterality Date D AND C ESOPHAGOGASTRODUODENOSCOPY TRANSORAL DIAGNOSTIC 05/20/2006 EGD LAPAROSCOPIC GASTRIC BAND PROCEDURE 2011 LASIK PROCEDURE PAST SURGICAL HISTORY OF part of thryoid removed PAST SURGICAL HISTORY OF cyst removed from tongue ALLERGIES Clindamycin, Simvastatin, Tapes [Other], and Codeine MEDICATIONS atorvastatin (LIPITOR) 20 mg tablet Take 1 tablet by mouth once daily. CPAP/BIPAP/OTHER New start Auto CPAP with settings of 5-15 cm H20. Lifetime supplies for Auto CPAP, including patient preferred mask, head gear, heated tubing, humidity, filters, chin strap. Dx: Obstructive Sleep Apnea G47.33 DME: [facility]- phone [phone] Fax download report to [phone] and/or set up appropriate acct access. metFORMIN ER (GLUCOPHAGE XR) 500 mg 24 hr tablet Take 2 tablets by mouth once daily. MAGNESIUM ORAL Take 1 tablet by mouth once daily. levothyroxine (SYNTHROID) 75 mcg tablet Take 1 tablet by mouth once daily. multivitamin tablet Take 1 tablet by mouth once daily. FAMILY HISTORY Problem Relation Age of Onset Breast Cancer Maternal Aunt Cancer Maternal Grandfather Diabetes Mother Heart Mother other (reflux) Father Social History Tobacco Use Smoking status: Never Smokeless tobacco: Never Vaping Use Vaping Use: Never used Substance Use Topics Alcohol use: No Drug use: No Objective Physical Exam Vitals and nursing note reviewed. Constitutional: General: She is not in acute distress. Appearance: Normal appearance. She is obese. She is not ill-appearing. Cardiovascular: Rate and Rhythm: Normal rate. Pulmonary: Effort: Pulmonary effort is normal. Musculoskeletal: General: Tenderness present. No swelling or signs of injury. Right foot: Normal range of motion. No deformity. Feet: Feet: Right foot: Skin integrity: No blister, skin breakdown, erythema, warmth, callus, dry skin or fissure. Toenail Condition: Right toenails are normal. Skin: General: Skin is warm and dry. Findings: No erythema or rash. Neurological: Mental Status: She is alert. ASSESSMENT/PLAN: 1. Foot pain, right - ICD9: 729.5, ICD10: M79.671 - suspect plantar fasciitis - XR FOOT GENERAL 3V AP/LAT/OBL RIGHT Radiologist RESULT: No acute fracture or dislocation. Joint spaces are maintained. Small plantar calcaneal spur. IMPRESSION: No acute osseous abnormality Bond Trader: LEONARDA Transcribe Date/Time: Jan 21 2023 11:34A Dictated by : ERIN SHANE MD - CONSULT TO PODIATRY -Patient advised to perform stretching excercises, icing, and to wear athletic-type shoes with supportive insoles. No barefoot walking. Amy Starr APRN.PHOTORADIO OPERATOR documented in this encounter [facility] 11-04-2022 Note HNO ID: [id number] Author: Silvio Gerard MD Service: ? Author Type: Physician Type: Progress Notes Filed: 11/04/2022 10:11 AM Note Text: Virtual Visit utilizing both audio and video components Prepair I have communicated my name and active licensure. The patient's identity and physical location were verified at the time of this visit. Either the patient or their legal distribution sales representative has been informed of the risks and benefits of -- and alternatives to -- treatment through a remote evaluation and consents to proceed with the evaluation remotely. Patient location: at home [facility] Assessment / Plan Assessment: 1) Hypercholesterolemia. Muscle toxicity gone after using creatine 1 scoop daily and CoQ10 250mg/d. She is on atorvastatin 10 mg/d with this, legs feel good (which is where the aching was). She is going on a vacation for am[place]th, so I will have her stay on this dose till after she gets back, but LDL at 140 is still too high. After she gets back, I'll have her go up to 20mg/d. If aching recurs, double creatine for 5d while stopping atorvastatin, then go back to 10 mg/d. 2) Prediabetes, metformin ER 500mg 2x/d associated with significant bloating, I will ask her to try taking 500mg once a day and see if this helps. 3) Surgical hypothyroidism, will check labs in 3 months. Unchanged 1) Thyroid microcarcinoma, subtle nodule left lower pole 06/06/22, planned f/u May 2023. Treatment / Plan: 1) stay on the same creatine and CoQ10 dose you are on now. 2) stay on atorvastatin 10 mg daily (or 20mg every other day) until you return from your vacation, then increase to 20 mg daily. 3) if your aching returns on 20mg daily atorvastatin, stop the atorvastatin for 5 days while you double the creatine for those 5 days (keep the CoQ10 the same). Then go back to 10mg atorvastatin dailiy and back to once a day creatine. 4) decrease the metformin ER 500mg to one a day 5) return to me in 3 months by virtual visit Silvio Gerard MD Data iPhone=FaceTime Data Review: Component Latest Ref Rng AND Units 03/06/2022 Free T4 0.9 - 1.7 ng/dL 1.7 TSH 0.270 - 4.200 mIU/L 1.000 Thyroglobulin 1.6 - 59.9 ng/mL 6.5 Thyroglobulin Ab <14.4 IU/mL <1.0 Component Latest Ref Rng AND Units 07/25/2022 11/03/2022 Cholesterol, Total <200 mg/dL 259 (H) 235 (H) Triglyceride <150 mg/dL 95 92 HDL Cholesterol >39 mg/dL 60 77 Non HDL Cholesterol <130 mg/dL 199 (H) 158 (H) LDL Cholesterol <100 mg/dL 180 (H) 140 (H) Hemoglobin A1C 4.3 - 5.6 % 5.5 History Prediabetes : taking metformin ER 500g x 2/d, has decreased weight by 10 lb. getting bloating on twice a day Hypercholesterolemia mother of complications of ?DM1, maternal GM had CHF father had MS age 70s, he was only one of 14 sibs with vasc disease both parents seemed to have high cholesterol. uses [place] Creatine: it has made a world of difference in my legs , one scoop a day Context: 1) FHx breast CA Thyroid CA History Surgery (01/14/06): right thyroid lobectomy and isthmus resection, Dr. Rico Johnson. Pathology (01/14/06): papillary CA, 0.3cm in right lobe, no other CA found.. Thyroglobulin Component Thyroglobulin TG Antibody Screen Ref Rng 1.6 - 59.9 ng/mL <14.4 IU/mL 03/17/2006 12.4 < 20.0 09/10/2007 6.9 <8.0 07/21/2008 8.2 <8.0 07/28/2009 9.6 0.7 08/17/2010 8.0 <1.0 11/27/2011 6.6 1.2 09/28/2014 6.6 1.2 12/26/2016 4.6 <1.0 10/22/2017 4.3 <1.0 01/31/2021 5.2 <1.0 Vitamin D Component Vitamin D 25 Hydroxy Latest Ref Rng AND Units 31.0 - 80.0 ng/mL 07/21/2008 <7.0 (L) 07/28/2009 53.7 08/17/2010 48.3 12/18/2011 53.0 02/05/2013 35.2 09/28/2014 29.4 (L) ROS PHYSICAL EXAM There were no vitals taken for this visit. PAST MED / SURG / FAMILY / SOCIAL HISTORY PAST MEDICAL HISTORY Diagnosis Date Abdominal pain, epigastric ACUTE GASTRITIS W/O HEMORRHAGE 05/20/2006 Depressive disorder, not elsewhere classified Diaphragmatic hernia without mention of obstruction or gangrene Diffuse cystic mastopathy 03/08/2009 Hyperopia, right 12/03/2020 Nocturia 08/07/2016 PMH - PAST MEDICAL HISTORY OF thyroid cancer PAST SURGICAL HISTORY Procedure Laterality Date D AND C ESOPHAGOGASTRODUODENOSCOPY TRANSORAL DIAGNOSTIC 05/20/2006 EGD LAPAROSCOPIC GASTRIC BAND PROCEDURE 2010 LASIK PROCEDURE PAST SURGICAL HISTORY OF part of thryoid removed PAST SURGICAL HISTORY OF cyst removed from tongue FAMILY HISTORY Problem Relation Age of Onset Breast Cancer Maternal Aunt Cancer Maternal Grandfather Diabetes Mother Heart Mother other (reflux) Father Social History Tobacco Use Smoking status: Never Smokeless tobacco: Never Vaping Use Vaping Use: Never used Substance Use Topics Alcohol use: No Drug use: No MEDICATIONS AND ALLERGIES Current Outpatient Medications Medication Sig Dispense Refill atorvastatin (LIPITOR) 10 mg tablet Take 1 tablet by mouth once daily. 30 tablet 11 (more content not included)... [facility] 11-04-2022 Instructions Silvio Gerard MD - 11/04/2022 10:10 AM EDT Assessment / Plan Assessment: 1) Hypercholesterolemia. Muscle toxicity gone after using creatine 1 scoop daily and CoQ10 250mg/d. She is on atorvastatin 10 mg/d with this, legs feel good (which is where the aching was). She is going on a vacation for amonth, so I will have her stay on this dose till after she gets back, but LDL at 140 is still too high. After she gets back, I'll have her go up to 20mg/d. If aching recurs, double creatine for 5d while stopping atorvastatin, then go back to 10 mg/d. 2) Prediabetes, metformin ER 500mg 2x/d associated with significant bloating, I will ask her to try taking 500mg once a day and see if this helps. 3) Surgical hypothyroidism, will check labs in 3 months. Unchanged 1) Thyroid microcarcinoma, subtle nodule left lower pole 06/06/22, planned f/u May 2023. Treatment / Plan: 1) stay on the same creatine and CoQ10 dose you are on now. 2) stay on atorvastatin 10 mg daily (or 20mg every other day) until you return from your vacation, then increase to 20 mg daily. 3) if your aching returns on 20mg daily atorvastatin, stop the atorvastatin for 5 days while you double the creatine for those 5 days (keep the CoQ10 the same). Then go back to 10mg atorvastatin dailiy and back to once a day creatine. 4) decrease the metformin ER 500mg to one a day 5) [place] by virtual visit Silvio Gerard MD Data iPhone=[employer] Data Review: Component Latest Ref Rng & Units 03/06/2022 Free T4 0.9 - 1.7 ng/dL 1.7 TSH 0.270 - 4.200 mIU/L 1.000 Thyroglobulin 1.6 - 59.9 ng/mL 6.5 Thyroglobulin Ab <14.4 IU/mL <1.0 Component Latest Ref Rng & Units 07/25/2022 11/03/2022 Cholesterol, Total <200 mg/dL 259 (H) 235 (H) Triglyceride <150 mg/dL 95 92 HDL Cholesterol >39 mg/dL 60 77 Non HDL Cholesterol <130 mg/dL 199 (H) 158 (H) LDL Cholesterol <100 mg/dL 180 (H) 140 (H) Hemoglobin A1C 4.3 - 5.6 % 5.5 documented in this encounter [facility] 11-04-2022 History of Presen t illness Narrative Virtual Visit utilizing both audio and video components MyChart-Zoom I have communicated my name and active licensure. The patient's identity and physical location were verified at the time of this visit. Either the patient or their legal distribution sales representative has been informed of the risks and benefits of -- and alternatives to -- treatment through a remote evaluation and consents to proceed with the evaluation remotely. Patient location: at home [facility] Assessment / Plan Assessment: 1) Hypercholesterolemia. Muscle toxicity gone after using creatine 1 scoop daily and CoQ10 250mg/d. She is on atorvastatin 10 mg/d with this, legs feel good (which is where the aching was). She is going on a vacation for amonth, so I will have her stay on this dose till after she gets back, but LDL at 140 is still too high. After she gets back, I'll have her go up to 20mg/d. If aching recurs, double creatine for 5d while stopping atorvastatin, then go back to 10 mg/d. 2) Prediabetes, metformin ER 500mg 2x/d associated with significant bloating, I will ask her to try taking 500mg once a day and see if this helps. 3) Surgical hypothyroidism, will check labs in 3 months. Unchanged 1) Thyroid microcarcinoma, subtle nodule left lower pole 06/06/22, planned f/u May 2023. Treatment / Plan: 1) stay on the same creatine and CoQ10 dose you are on now. 2) stay on atorvastatin 10 mg daily (or 20mg every other day) until you return from your vacation, then increase to 20 mg daily. 3) if your aching returns on 20mg daily atorvastatin, stop the atorvastatin for 5 days while you double the creatine for those 5 days (keep the CoQ10 the same). Then go back to 10mg atorvastatin dailiy and back to once a day creatine. 4) decrease the metformin ER 500mg to one a day 5) return to me in 3 months by virtual visit Silvio Gerard MD Data iPhone=[employer] Data Review: Component Latest Ref Rng & Units 03/06/2022 Free T4 0.9 - 1.7 ng/dL 1.7 TSH 0.270 - 4.200 mIU/L 1.000 Thyroglobulin 1.6 - 59.9 ng/mL 6.5 Thyroglobulin Ab <14.4 IU/mL <1.0 Component Latest Ref Rng & Units 07/25/2022 11/03/2022 Cholesterol, Total <200 mg/dL 259 (H) 235 (H) Triglyceride <150 mg/dL 95 92 HDL Cholesterol >39 mg/dL 60 77 Non HDL Cholesterol <130 mg/dL 199 (H) 158 (H) LDL Cholesterol <100 mg/dL 180 (H) 140 (H) Hemoglobin A1C 4.3 - 5.6 % 5.5 History Prediabetes : taking metformin ER 500g x 2/d, has decreased weight by 10 lb. getting bloating on twice a day Hypercholesterolemia mother of complications of ?DM1, maternal GM had CHF father had MS age 70s, he was only one of 14 sibs with vasc disease both parents seemed to have high cholesterol. uses Croat[place] Creatine: it has made a world of difference in my legs , one scoop a day Context: 1) FHx breast CA Thyroid CA History Surgery (01/14/06): right thyroid lobectomy and isthmus resection, Dr. Rico Johnson. Pathology (01/14/06): papillary CA, 0.3cm in right lobe, no other CA found.. Thyroglobulin Component Thyroglobulin TG Antibody Screen Ref Rng 1.6 - 59.9 ng/mL <14.4 IU/mL 03/17/2006 12.4 < 20.0 09/10/2007 6.9 <8.0 07/21/2008 8.2 <8.0 07/28/2009 9.6 0.7 08/17/2010 8.0 <1.0 11/27/2011 6.6 1.2 09/28/2014 6.6 1.2 12/26/2016 4.6 <1.0 10/22/2017 4.3 <1.0 01/31/2021 5.2 <1.0 Vitamin D Component Vitamin D 25 Hydroxy Latest Ref Rng & Units 31.0 - 80.0 ng/mL 07/21/2008 <7.0 (L) 07/28/2009 53.7 08/17/2010 48.3 12/18/2011 53.0 02/05/2013 35.2 09/28/2014 29.4 (L) ROS PHYSICAL EXAM There were no vitals taken for this visit. PAST MED / SURG / FAMILY / SOCIAL HISTORY PAST MEDICAL HISTORY Diagnosis Date Abdominal pain, epigastric ACUTE GASTRITIS W/O HEMORRHAGE 05/20/2006 Depressive disorder, not elsewhere classified Diaphragmatic hernia without mention of obstruction or gangrene Diffuse cystic mastopathy 03/08/2009 Hyperopia, right 12/03/2020 Nocturia 08/07/2016 PMH - PAST MEDICAL HISTORY OF thyroid cancer PAST SURGICAL HISTORY Procedure Laterality Date D AND C ESOPHAGOGASTRODUODENOSCOPY TRANSORAL DIAGNOSTIC 05/20/2006 EGD LAPAROSCOPIC GASTRIC BAND PROCEDURE 2011 LASIK PROCEDURE PAST SURGICAL HISTORY OF part of thryoid removed PAST SURGICAL HISTORY OF cyst removed from tongue FAMILY HISTORY Problem Relation Age of Onset Breast Cancer Maternal Aunt Cancer Maternal Grandfather Diabetes Mother Heart Mother other (reflux) Father Social History Tobacco Use Smoking status: Never Smokeless tobacco: Never Vaping Use Vaping Use: Never used Substance Use Topics Alcohol use: No Drug use: No MEDICATIONS & ALLERGIES Current Outpatient Medications Medication Sig Dispense Refill atorvastatin (LIPITOR) 10 mg tablet Take 1 tablet by mouth once daily. 30 tablet 11 CPAP/BIPAP/OTHER New start Auto CPAP with settings of 5-15 cm H20. Lifetime supplies for Auto CPAP, including patient preferred mask, head gear, heated tubing, humidity, filters, chin strap. Dx: Obstructive Sleep Apnea G47.33 DME: [facility]- phone [phone] Fax download report to [phone] and/or set up appropriate acct access. 1 Each 0 metFORMIN ER (GLUCOPHAGE XR) 500 mg 24 hr tablet Take 2 tablets by mouth once daily. 120 tablet 11 MAGNESIUM ORAL Take 1 tablet by mouth once daily. levothyroxine (SYNTHROID) 75 mcg tablet Take 1 tablet by mouth once daily. 90 tablet 3 multivitamin tablet Take 1 tablet by mouth once daily. 0 No current facility-administered medications for this visit. ALLERGIES Allergen Reactions Clindamycin Diarrhea Simvastatin Intolerance Myalgia Tapes [Other] Other: See Comments Some tape tears skin off Codeine documented in this encounter [facility] 09-08-2022 Note HNO ID: [id number] Author: Silvio Gerard MD Service: ? Author Type: Physician Type: Progress Notes Filed: 09/08/2022 10:44 AM Note Text: Virtual Visit utilizing both audio and video components MyChart-Zoom I have communicated my name and active licensure. The patient's identity and physical location were verified at the time of this visit. Either the patient or their legal distribution sales representative has been informed of the risks and benefits of -- and alternatives to -- treatment through a remote evaluation and consents to proceed with the evaluation remotely. Patient location: at home [facility] Assessment / Plan Assessment: 1) Hypercholesterolemia. Atorvastatin 20mg/d associated with muscle toxicity, currently off of it. Baseline cholesterol 259, GBR=414, is prediabetic with moderate if somewhat indeterminate FHx. I will have her use creatine and try atorvastatin 10mg/d. Followup in 6 weeks with labs prior. Unchanged 1) Thyroid microcarcinoma, subtle nodule left lower pole 06/06/22, planned f/u May 2023. 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 3) Prediabetes, tolerating metformin ER 500mg 2x/d, HbA1c has dropped a little Treatment / Plan: 1) get Croatian Creatine, start taking 1 scoop twice a day (with yogurt or applesauce) for 5 days, then decrease to once a day and begin atorvastatin 10 mg daily. 2) [place] visit with fasting labs before the visit. Silvio Gerard MD Data iPhone=[employer] Data Review: Component Latest Ref Rng AND Units 03/06/2022 Free T4 0.9 - 1.7 ng/dL 1.7 TSH 0.270 - 4.200 mIU/L 1.000 Thyroglobulin 1.6 - 59.9 ng/mL 6.5 Thyroglobulin Ab <14.4 IU/mL <1.0 Component Latest Ref Rng AND Units 07/25/2022 Cholesterol, Total <200 mg/dL 259 (H) Triglyceride <150 mg/dL 95 HDL Cholesterol >39 mg/dL 60 Non HDL Cholesterol <130 mg/dL 199 (H) LDL Cholesterol <100 mg/dL 180 (H) Hemoglobin A1C 4.3 - 5.6 % 5.5 History Prediabetes : taking metformin ER 500g x 2/d, has decreased weight by 10 lb. Hypercholesterolemia mother of complications of ?DM1, maternal GM had CHF father had MS age 70s, he was only one of 14 sibs with vasc disease both parents seemed to have high cholesterol. Context: 1) FHx breast CA Thyroid CA History Surgery (01/14/06): right thyroid lobectomy and isthmus resection, Dr. Rico Johnson. Pathology (01/14/06): papillary CA, 0.3cm in right lobe, no other CA found.. Thyroglobulin Component Thyroglobulin TG Antibody Screen Ref Rng 1.6 - 59.9 ng/mL <14.4 IU/mL 03/17/2006 12.4 < 20.0 09/10/2007 6.9 <8.0 07/21/2008 8.2 <8.0 07/28/2009 9.6 0.7 08/17/2010 8.0 <1.0 11/27/2011 6.6 1.2 09/28/2014 6.6 1.2 12/26/2016 4.6 <1.0 10/22/2017 4.3 <1.0 01/31/2021 5.2 <1.0 Vitamin D Component Vitamin D 25 Hydroxy Latest Ref Rng AND Units 31.0 - 80.0 ng/mL 07/21/2008 <7.0 (L) 07/28/2009 53.7 08/17/2010 48.3 12/18/2011 53.0 02/05/2013 35.2 09/28/2014 29.4 (L) ROS PHYSICAL EXAM There were no vitals taken for this visit. PAST MED / SURG / FAMILY / SOCIAL HISTORY PAST MEDICAL HISTORY Diagnosis Date Abdominal pain, epigastric ACUTE GASTRITIS W/O HEMORRHAGE 05/20/2006 Depressive disorder, not elsewhere classified Diaphragmatic hernia without mention of obstruction or gangrene Diffuse cystic mastopathy 03/08/2009 Hyperopia, right 12/03/2020 Nocturia 08/07/2016 PMH - PAST MEDICAL HISTORY OF thyroid cancer PAST SURGICAL HISTORY Procedure Laterality Date D AND C ESOPHAGOGASTRODUODENOSCOPY TRANSORAL DIAGNOSTIC 05/20/2006 EGD LAPAROSCOPIC GASTRIC BAND PROCEDURE 2011 LASIK PROCEDURE PAST SURGICAL HISTORY OF part of thryoid removed PAST SURGICAL HISTORY OF cyst removed from tongue FAMILY HISTORY Problem Relation Age of Onset Breast Cancer Maternal Aunt Cancer Maternal Grandfather Diabetes Mother Heart Mother other (reflux) Father Social History Tobacco Use Smoking status: Never Smokeless tobacco: Never Vaping Use Vaping Use: Never used Substance Use Topics Alcohol use: No Drug use: No MEDICATIONS AND ALLERGIES Current Outpatient Medications Medication Sig Dispense Refill CPAP/BIPAP/OTHER New start Auto CPAP with settings of 5-15 cm H20. Lifetime supplies for Auto CPAP, including patient preferred mask, head gear, heated tubing, humidity, filters, chin strap. Dx: Obstructive Sleep Apnea G47.33 DME: [facility]- phone [phone] Fax download report to [phone] and/or set up appropriate acct access. 1 Each 0 metFORMIN ER (GLUCOPHAGE XR) 500 mg 24 hr tablet Take 2 tablets by mouth once daily. 120 tablet 11 MAGNESIUM ORAL Take 1 tablet by mouth once daily. levothyroxine (SYNTHROID) 75 mcg tablet Take 1 tablet by mouth once daily. 90 tablet 3 atorvastatin (LIPITOR) 20 mg tablet Take 1 tablet by mouth daily at bedtime. 90 tablet 3 multivitamin tablet Take 1 tablet by mouth once (more content not included)... [facility] 09-08-2022 Instructions Silvio Gerard MD - 09/08/2022 10:40 AM EDT Assessment / Plan Assessment: 1) Hypercholesterolemia. Atorvastatin 20mg/d associated with muscle toxicity, currently off of it. Baseline cholesterol 259, UYN=430, is prediabetic with moderate if somewhat indeterminate FHx. I will have her use creatine and try atorvastatin 10mg/d. Followup in 6 weeks with labs prior. Unchanged 1) Thyroid microcarcinoma, subtle nodule left lower pole 06/06/22, planned f/u May 2023. 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 3) Prediabetes, tolerating metformin ER 500mg 2x/d, HbA1c has dropped a little Treatment / Plan: 1) get Croatian Creatine, start taking 1 scoop twice a day (with yogurt or applesauce) for 5 days, then decrease to once a day and begin atorvastatin 10 mg daily. 2) return to me in 6 weeks by virtual visit with fasting labs before the visit. Silvio Gerard MD documented in this encounter [facility] 09-08-2022 History of Presen t illness Narrative Virtual Visit utilizing both audio and video components MyChart-Zoom I have communicated my name and active licensure. The patient's identity and physical location were verified at the time of this visit. Either the patient or their legal distribution sales representative has been informed of the risks and benefits of -- and alternatives to -- treatment through a remote evaluation and consents to proceed with the evaluation remotely. Patient location: at home [facility] Assessment / Plan Assessment: 1) Hypercholesterolemia. Atorvastatin 20mg/d associated with muscle toxicity, currently off of it. Baseline cholesterol 259, SBH=177, is prediabetic with moderate if somewhat indeterminate FHx. I will have her use creatine and try atorvastatin 10mg/d. Followup in 6 weeks with labs prior. Unchanged 1) Thyroid microcarcinoma, subtle nodule left lower pole 06/06/22, planned f/u May 2023. 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 3) Prediabetes, tolerating metformin ER 500mg 2x/d, HbA1c has dropped a little Treatment / Plan: 1) get Croat[place] Creatine, start taking 1 scoop twice a day (with yogurt or applesauce) for 5 days, then decrease to once a day and begin atorvastatin 10 mg daily. 2) [place] visit with fasting labs before the visit. Silvio Gerard MD Data iPhone=[employer] Data Review: Component Latest Ref Rng & Units 03/06/2022 Free T4 0.9 - 1.7 ng/dL 1.7 TSH 0.270 - 4.200 mIU/L 1.000 Thyroglobulin 1.6 - 59.9 ng/mL 6.5 Thyroglobulin Ab <14.4 IU/mL <1.0 Component Latest Ref Rng & Units 07/25/2022 Cholesterol, Total <200 mg/dL 259 (H) Triglyceride <150 mg/dL 95 HDL Cholesterol >39 mg/dL 60 Non HDL Cholesterol <130 mg/dL 199 (H) LDL Cholesterol <100 mg/dL 180 (H) Hemoglobin A1C 4.3 - 5.6 % 5.5 History Prediabetes : taking metformin ER 500g x 2/d, has decreased weight by 10 lb. Hypercholesterolemia mother of complications of ?DM1, maternal GM had CHF father had MS age 70s, he was only one of 14 sibs with vasc disease both parents seemed to have high cholesterol. Context: 1) FHx breast CA Thyroid CA History Surgery (01/14/06): right thyroid lobectomy and isthmus resection, Dr. Rico Johnson. Pathology (01/14/06): papillary CA, 0.3cm in right lobe, no other CA found.. Thyroglobulin Component Thyroglobulin TG Antibody Screen Ref Rng 1.6 - 59.9 ng/mL <14.4 IU/mL 03/17/2006 12.4 < 20.0 09/10/2007 6.9 <8.0 07/21/2008 8.2 <8.0 07/28/2009 9.6 0.7 08/17/2010 8.0 <1.0 11/27/2011 6.6 1.2 09/28/2014 6.6 1.2 12/26/2016 4.6 <1.0 10/22/2017 4.3 <1.0 01/31/2021 5.2 <1.0 Vitamin D Component Vitamin D 25 Hydroxy Latest Ref Rng & Units 31.0 - 80.0 ng/mL 07/21/2008 <7.0 (L) 07/28/2009 53.7 08/17/2010 48.3 12/18/2011 53.0 02/05/2013 35.2 09/28/2014 29.4 (L) ROS PHYSICAL EXAM There were no vitals taken for this visit. PAST MED / SURG / FAMILY / SOCIAL HISTORY PAST MEDICAL HISTORY Diagnosis Date Abdominal pain, epigastric ACUTE GASTRITIS W/O HEMORRHAGE 05/20/2006 Depressive disorder, not elsewhere classified Diaphragmatic hernia without mention of obstruction or gangrene Diffuse cystic mastopathy 03/08/2009 Hyperopia, right 12/03/2020 Nocturia 08/07/2016 PMH - PAST MEDICAL HISTORY OF thyroid cancer PAST SURGICAL HISTORY Procedure Laterality Date D AND C ESOPHAGOGASTRODUODENOSCOPY TRANSORAL DIAGNOSTIC 05/20/2006 EGD LAPAROSCOPIC GASTRIC BAND PROCEDURE 2011 LASIK PROCEDURE PAST SURGICAL HISTORY OF part of thryoid removed PAST SURGICAL HISTORY OF cyst removed from tongue FAMILY HISTORY Problem Relation Age of Onset Breast Cancer Maternal Aunt Cancer Maternal Grandfather Diabetes Mother Heart Mother other (reflux) Father Social History Tobacco Use Smoking status: Never Smokeless tobacco: Never Vaping Use Vaping Use: Never used Substance Use Topics Alcohol use: No Drug use: No MEDICATIONS & ALLERGIES Current Outpatient Medications Medication Sig Dispense Refill CPAP/BIPAP/OTHER New start Auto CPAP with settings of 5-15 cm H20. Lifetime supplies for Auto CPAP, including patient preferred mask, head gear, heated tubing, humidity, filters, chin strap. Dx: Obstructive Sleep Apnea G47.33 DME: [facility]- phone [phone] Fax download report to [phone] and/or set up appropriate acct access. 1 Each 0 metFORMIN ER (GLUCOPHAGE XR) 500 mg 24 hr tablet Take 2 tablets by mouth once daily. 120 tablet 11 MAGNESIUM ORAL Take 1 tablet by mouth once daily. levothyroxine (SYNTHROID) 75 mcg tablet Take 1 tablet by mouth once daily. 90 tablet 3 atorvastatin (LIPITOR) 20 mg tablet Take 1 tablet by mouth daily at bedtime. 90 tablet 3 multivitamin tablet Take 1 tablet by mouth once daily. 0 No current facility-administered medications for this visit. ALLERGIES Allergen Reactions Clindamycin Diarrhea Simvastatin Intolerance Myalgia Tapes [Other] Other: See Comments Some tape tears skin off Codeine documented in this encounter [facility] 08-06-2022 Note HNO ID: [id number] Author: Judy Jorge APRN.PHOTORADIO OPERATOR Service: ? Author Type: Nurse Practitioner Type: Progress Notes Filed: 08/06/2022 9:36 AM Note Text: [facility] Follow up/ Established patient visit Visit performed virtually, with the patient's permission. I have communicated my name and active licensure. The patient's identity and physical location were verified at the time of this visit. Either the patient or their legal distribution sales representative has been informed of the risks and benefits of -- and alternatives to -- treatment through a remote evaluation and consents to proceed with the evaluation remotely. Date of last visit : 05/28/2022 Per last visit: IMPRESSION: Nolan (obstructive sleep apnea) (primary encounter diagnosis) Excessive daytime sleepiness Chronic insomnia Rls (restless legs syndrome) Jay Sorensen is a 67 year old female with PMH of RLS, HLD, hypothyroidism, thyroid nodule, plantar fascial fibromatosis, and obesity. She presented for evaluation d/t sx of worsening snoring, waking up choking/gasping for air, multiple awakenings, frequent movement in bed, leg kicking, EDS, and worsening of her RLS symptoms. A Home Sleep Test (HST) performed on 02/23/2022 revealed at least mild NOLAN (AHI of 8.3) that was associated with a minimum oxygen saturation of 84%; patient spent 63.7 mins with oxygen saturation less than 90%. Results of HST discussed in detail, including possible underestimation of severity of sleep apnea. Treatment options discussed with patient. Patient is agreeable to proceeding with PAP therapy for treatment of NOLAN. PLAN: NOLAN: - Discussed diagnosis, causes, and conditions associated with obstructive sleep apnea. - Avoid driving when drowsy. Recommend that if you are dozing off while driving, that you do not drive until your sleepiness is appropriately treated. - Encouraged healthy lifestyle with adequate sleep (7-9 hours per night), diet and exercise. - Encouraged patient to avoid supine sleep if possible. - Various treatment options discussed. - Patient agreed to proceed with PAP (positive airway pressure) therapy. - Discussed mask options. - Will start Auto CPAP 5-15 cmH2O. - I will have a prescription sent to a docplanner (durable medical equipment) company - [employer] ([place], [place]) [phone] . They will reach out to you in the next 1-2 weeks. - If they do not accept your insurance, we will forward your orders to a different docplanner company and notify you. - If you do not hear from them within 2 weeks, please contact them directly - Let them know what mask you would like to use. (See pictures in AVS) - Start using your device right away - We can adjust pressure for comfort if requested prior to next visit. - You should be eligible for new supplies approximately every 3-6 months, depending on your insurance coverage. - If your mask doesn't fit well, call the docplanner company within the first 30 days to get a new mask without an additional charge. INSURANCE REQUIREMENTS: - Your insurance requires a follow up visit within a 31-90 day period after starting PAP device. This may be virtual or in-person. - Your insurance requires compliance with using your PAP device, which is at least 4 hours per night for 70% of the time. This must be done over a 30 day period and must occur within the initial 31-90 day period after starting PAP therapy. - Your insurance also requires at least yearly follow ups to continue to pay for PAP supplies. - After you receive your machine, please call [phone] to schedule a follow up appointment in Sleep Disorders Thursday through Thursday during regular business hours, or call the Appointment Center 08/12 - [phone]. RLS: - Iron studies unremarkable from 02/2022 - If RLS symptoms persist despite NOLAN management, pharmacologic treatment will be considered. - Nonmedical therapy for restless legs syndrome includes: cold/warm compresses, warm/hot baths or showers, gentle massage, mild leg stretching at nighttime, magnesium supplements (500mg-1000mg daily). Mentally alerting activities help too, during awake hours. Note that caffeine, alcohol, antidepressants, antinausea medications and antihistamines can cause or worsen symptoms. Judy Jorge APRN.JUAN RAMON Here for follow up for NOLAN / PAP compliance Interval history : She received her CPAP device on 06/11/2022 from [facility] ([place]). She is frustrated, because she wanted to use [facility] in [place] has her DME, as she is often in [place] for other appointments. She has met compliance with PAP therapy. She has been sick for the past 2 weeks and has not been able to use device d/t constant coughing/ clearing throat. She is now on medication and starting to feel better. However, she feels she is not sleeping well. She has a nasal pillow mask ([employer]ironics). She reports her mask is waking her b/c it moves (more content not included)... [facility] 08-06-2022 Instructions Judy Jorge APRN.JUAN RAMON - 08/06/2022 9:25 AM EDT Images from the original note were not included. PLAN: - Continue Auto CPAP at current settings of 5-15 cmH2O. - Sleep apnea is presently well controlled! Keep up the great work! - Remember to clean your mask and equipment regularly, as directed. - Avoid use of ozone account general manager, SoClean devices, or UV cleaning devices - Avoid using alcohol or alcohol-containing products on your mask, as this may compromise the integrity of the mask materials and contribute to leak issues - Use only baby shampoo and water, mild dish soap and water, or CPAP-specific wipes to clean your supplies. - You should be eligible for new supplies approximately every 3-6 months, depending on your insurance coverage. Contact your Durable Medical Equipment (DME) company for new supplies as needed. - I will have my nurse reach out to [facility] in [place] to see if we can transfer services to them instead of [facility] location. - I will have the nurse call you to provide you with an update - We will plan to set-up a mask fitting with the DME company to obtain better fitting mask - See After Visit Summary for mask pictures as discussed. Preferred DME: [facility] [place] [address] [place] [address] - Follow up TBD based on progress with new mask - Appointments can be scheduled through the central scheduling system for the [facility] at [phone]. Nasal masks: (Picture below each name) Yusuf Respironics ComfortGel Blue CPAP Nasal Mask with Headgear ResMed Mirage FX nasal mask: Dreamwisp nasal mask: Aiden nasal mask Resmed Airfit N30 Resmed Airfit N30i PAP Supply Guidelines Below are the guidelines for reordering your supplies. You will be responsible for your deductible, co-payments, and out of pocket expenses. Item Medicare & Commercial Insurance Medicaid & HCAP Nasal Mask (no headgear) 1 every 3 months 1 per year Nasal Mask Cushion 1 every month 2 per year Full Face Mask (no headgear) 1 every 3 months 1 per year Full Face Mask Cushion 1 every month *Self-Pay Nasal Pillows 2 every month 2 per year Headgear 1 every 6 months 1 per year Chin Strap 1 every 6 months 2 per year Tubing 1 every 3 months 1 per year Filters: Reusable 1 every 6 months 4 per year Filters: Disposable 2 every month 1 per month Humidifier Chamber(disposable) 1 every 6 months *Self-Pay Contacting the Sleep Disorders Center: - Appointments can be scheduled through the central scheduling system for the [facility] at [phone]. - Call the Sleep Disorders Center at [phone] for questions. - May use Message [employer] Doc through [employer] for questions. - [facility] Sleep Disorders Center website: [email or web address] Your most recent body mass index (BMI) that we have on record is 38.58. Obstructive sleep apnea (NOLAN) worsens with an increase in weight; reduction in weight may improve or resolve your NOLAN. If you are not already seeking treatment, there are resources available at the [facility] such as a nutrition consultation or referral to weight management programs at our [facility] [place]. Please let us know if we can assist with a referral. documented in this encounter [facility] 08-06-2022 History of Presen t illness Narrative Images from the original note were not included. [facility] Sleep Disorders Center Follow up/ Established patient visit Visit performed virtually, with the patient's permission. I have communicated my name and active licensure. The patient's identity and physical location were verified at the time of this visit. Either the patient or their legal distribution sales representative has been informed of the risks and benefits of -- and alternatives to -- treatment through a remote evaluation and consents to proceed with the evaluation remotely. Date of last visit : 05/28/2022 Per last visit: IMPRESSION: Nolan (obstructive sleep apnea) (primary encounter diagnosis) Excessive daytime sleepiness Chronic insomnia Rls (restless legs syndrome) Jay Sorensen is a 67 year old female with PMH of RLS, HLD, hypothyroidism, thyroid nodule, plantar fascial fibromatosis, and obesity. She presented for evaluation d/t sx of worsening snoring, waking up choking/gasping for air, multiple awakenings, frequent movement in bed, leg kicking, EDS, and worsening of her RLS symptoms. A Home Sleep Test (HST) performed on 02/23/2022 revealed at least mild NOLAN (AHI of 8.3) that was associated with a minimum oxygen saturation of 84%; patient spent 63.7 mins with oxygen saturation less than 90%. Results of HST discussed in detail, including possible underestimation of severity of sleep apnea. Treatment options discussed with patient. Patient is agreeable to proceeding with PAP therapy for treatment of NOLAN. PLAN: NOLAN: - Discussed diagnosis, causes, and conditions associated with obstructive sleep apnea. - Avoid driving when drowsy. Recommend that if you are dozing off while driving, that you do not drive until your sleepiness is appropriately treated. - Encouraged healthy lifestyle with adequate sleep (7-9 hours per night), diet and exercise. - Encouraged patient to avoid supine sleep if possible. - Various treatment options discussed. - Patient agreed to proceed with PAP (positive airway pressure) therapy. - Discussed mask options. - Will start Auto CPAP 5-15 cmH2O. - I will have a prescription sent to a DME (durable medical equipment) company - [employer] [facility] ([place], [place]) [phone] . They will reach out to you in the next 1-2 weeks. - If they do not accept your insurance, we will forward your orders to a different docplanner company and notify you. - If you do not hear from them within 2 weeks, please contact them directly - Let them know what mask you would like to use. (See pictures in AVS) - Start using your device right away - We can adjust pressure for comfort if requested prior to next visit. - You should be eligible for new supplies approximately every 3-6 months, depending on your insurance coverage. - If your mask doesn't fit well, call the DME company within the first 30 days to get a new mask without an additional charge. INSURANCE REQUIREMENTS: - Your insurance requires a follow up visit within a 31-90 day period after starting PAP device. This may be virtual or in-person. - Your insurance requires compliance with using your PAP device, which is at least 4 hours per night for 70% of the time. This must be done over a 30 day period and must occur within the initial 31-90 day period after starting PAP therapy. - Your insurance also requires at least yearly follow ups to continue to pay for PAP supplies. - After you receive your machine, please call [phone] to schedule a follow up appointment in Sleep Disorders Thursday through Thursday during regular business hours, or call the Appointment Center 08/12 - [phone]. RLS: - Iron studies unremarkable from 02/2022 - If RLS symptoms persist despite NOLAN management, pharmacologic treatment will be considered. - Nonmedical therapy for restless legs syndrome includes: cold/warm compresses, warm/hot baths or showers, gentle massage, mild leg stretching at nighttime, magnesium supplements (500mg-1000mg daily). Mentally alerting activities help too, during awake hours. Note that caffeine, alcohol, antidepressants, antinausea medications and antihistamines can cause or worsen symptoms. Judy Jorge APRN.PHOTORADIO OPERATOR Here for follow up for NOLAN / PAP compliance Interval history : She received her CPAP device on 06/11/2022 from [facility] ([place]). She is frustrated, because she wanted to use [facility] in [place] has her DME, as she is often in [place] for other appointments. She has met compliance with PAP therapy. She has been sick for the past 2 weeks and has not been able to use device d/t constant coughing/ clearing throat. She is now on medication and starting to feel better. However, she feels she is not sleeping well. She has a nasal pillow mask (Respironics). She reports her mask is waking her b/c it moves around throughout the night. SLEEP APNEA A Home Sleep Test (HST) performed on 02/23/2022 revealed at least mild NOLAN (AHI of 8.3) that was associated with a minimum oxygen saturation of 84%; patient spent 63.7 mins with oxygen saturation less than 90%. Sleep apnea type : NOLAN, Most Recent Apnea-Hypopnea Index (AHI): 8.3 Treatment : None DME: [facility] PAP History: Uses AutoPAP for 6 hours per night, 7 nights per week. (Except during illness) Current PAP settin-15 cm H2O. Difficulties with AutoPAP: Yes: nasal congestion (with illness) and mask moving around with repositioning Reviewed objective PAP compliance data: Yes, residual AHI 1.1 Per download from 06/17/2022 - 07/16/2022, patient uses PAP therapy an average of 6 hours, and PAP use is >/= 4 hours on 93% of nights; Current setting of 5-15 cmH2O is controlling NOLAN well (residual AHI 1.1). Mask type: nasal pillow interface Mask issues: air leak and mask is waking her Uses chin strap: No Uses humidity: Yes There is a perceived benefit by the patient: improved health risk factors PATIENT-ENTERED QUESTIONNAIRE SLEEP SCORES Sleep Questions 08/05/2022 Reason for visit: Abnormal sleep/wake timing Average hours slept in 24 hours: 5 Accidents or near accidents due to drowsy drivin [place] Sleepiness Scale 04/16/2022 05/27/2022 08/05/2022 Score 16 (severe daytime sleepiness) 1 (No daytime sleepiness) 2 (No daytime sleepiness) PROMIS CAT Sleep Disturbance 04/16/2022 05/27/2022 08/05/2022 PROMIS Sleep Disturbance T-Score 60 (mild) 54 (within normal limits) 63 (moderate) Insomnia Severity Index 02/05/2022 04/17/2022 08/05/2022 Score 14 14 15 Restless Leg Syndrome 04/17/2022 08/05/2022 Score Incomplete Incomplete PHQ-9 05/27/2022 05/27/2022 08/05/2022 Score 0 0 0 PROMIS Global Health - (T-Scores - the mean of general population = 50. Five points is a clinically meaningful difference.) 02/05/2022 05/27/2022 05/27/2022 Physical T-Score 37.4 44.9 44.9 Mental T-Score 43.5 43.5 43.5 PMH, PSH, SH: Reviewed SLEEP RELATED ROS Review of Systems Constitutional: Positive for fatigue. HENT: Positive for congestion. Respiratory: Positive for cough. Negative for difficulty breathing. Skin: Negative for rash. ALLERGIES Allergen Reactions Clindamycin Diarrhea Simvastatin Intolerance Myalgia Tapes [Other] Other: See Comments Some tape tears skin off Codeine CURRENT MEDICATIONS: CPAP/BIPAP/OTHER New start Auto CPAP with settings of 5-15 cm H20. Lifetime supplies for Auto CPAP, including patient preferred mask, head gear, heated tubing, humidity, filters, chin strap. Dx: Obstructive Sleep Apnea G47.33 DME: [facility]- phone [phone] Fax download report to [phone] and/or set up appropriate acct access. metFORMIN ER (GLUCOPHAGE XR) 500 mg 24 hr tablet Take 2 tablets by mouth once daily. MAGNESIUM ORAL Take 1 tablet by mouth once daily. levothyroxine (SYNTHROID) 75 mcg tablet Take 1 tablet by mouth once daily. atorvastatin (LIPITOR) 20 mg tablet Take 1 tablet by mouth daily at bedtime. multivitamin tablet Take 1 tablet by mouth once daily. PHYSICAL EXAMINATION: Vital signs not obtained d/t virtual visit. General appearance: NAD, well groomed HEENT: Normocephalic, atraumatic, +nasal congestion Neuro: Awake, alert, memory grossly intact, speech is fluent Respiratory: No increased work of breathing; able to speak in complete sentences Psych: Appropriate, normal affect IMPRESSION: Nolan on cpap (primary encounter diagnosis) Frequent nocturnal awakening Jay Sorensen is a 67 year old female with PMH of NOLAN, RLS, HLD, hypothyroidism, thyroid nodule, plantar fascial fibromatosis, and obesity. She presented for evaluation d/t sx of worsening snoring, waking up choking/gasping for air, multiple awakenings, frequent movement in bed, leg kicking, EDS, and worsening of her RLS symptoms. A Home Sleep Test (HST) performed on 02/23/2022 revealed at least mild NOLAN (AHI of 8.3) that was associated with a minimum oxygen saturation of 84%; patient spent 63.7 mins with oxygen saturation less than 90%. She received her CPAP device on 06/11/2022 from [facility] ([place]). She reports compliance with PAP therapy and perceived benefit of treatment. Per download from 06/17/2022 - 07/16/2022, patient uses PAP therapy an average of 6 hours, and PAP use is >/= 4 hours on 93% of nights; Current setting of 5-15 cmH2O is controlling NOLAN well (residual AHI 1.1). She has been sick for the past 2 weeks and has not been able to use device d/t constant coughing/ clearing throat. She is now on medication and starting to feel better. However, she feels she is not sleeping well. She has a nasal pillow mask (Respironics). She reports her mask is waking her b/c it moves around throughout the night and disrupts her sleep. She was working with [facility] ([place]) to receive a new mask but has not yet heard back. She is frustrated, because she wanted to use [facility] in [place] as her DME, as she is often in [place] for other appointments. She would like to transition DME to [facility] if at all possible. PLAN: - Continue Auto CPAP at current settings of 5-15 cmH2O. - Sleep apnea is presently well controlled! Keep up the great work! - Remember to clean your mask and equipment regularly, as directed. - Avoid use of ozone account general manager, SoClean devices, or UV cleaning devices - Avoid using alcohol or alcohol-containing products on your mask, as this may compromise the integrity of the mask materials and contribute to leak issues - Use only baby shampoo and water, mild dish soap and water, or CPAP-specific wipes to clean your supplies. - You should be eligible for new supplies approximately every 3-6 months, depending on your insurance coverage. Contact your Durable Medical Equipment (DME) company for new supplies as needed. - I will have my nurse reach out to [facility] in [place] to see if we can transfer services to [facility] instead of [facility] location. - I will have the nurse call you to provide you with an update - We will plan to set-up a mask fitting with the DME company to obtain better fitting mask - See After Visit Summary for mask pictures as discussed. Preferred [facility] [place] [facility]: [facility] [place] [address] [place] [address] - Follow up TBD based on progress with new mask - Appointments can be scheduled through the central scheduling system for the [facility] [place] at [phone]. Judy Jorge APRN.JUAN RAMON I spent a total of 35 minutes on the date of the service which included preparing to see the patient, [id number] patient care, completing clinical documentation, obtaining and/or reviewing separately obtained history, performing a medically appropriate examination, counseling and educating the patient/family/caregiver, and communicating with other HCPs (not separately reported). documented in this encounter [facility] 07-29-2022 Note HNO ID: [id number] Author: Silvio Gerard MD Service: ? Author Type: Physician Type: Progress Notes Filed: 07/29/2022 11:10 AM Note Text: Virtual Visit utilizing both audio and video components MyChart-Zoom I have communicated my name and active licensure. The patient's identity and physical location were verified at the time of this visit. Either the patient or their legal distribution sales representative has been informed of the risks and benefits of -- and alternatives to -- treatment through a remote evaluation and consents to proceed with the evaluation remotely. Patient location: at home [facility] Assessment / Plan Assessment: 1) Thyroid microcarcinoma, has a thyroid nodule 1cm diameter in remaining left lobe, will need FNA. 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 3) Prediabetes, tolerating metformin ER 500mg 2x/d, HbA1c has dropped a little 4) Hypercholesterolemia, having myalgia, keeps taking 2-3/wk of atorvastatin, I'll have her stop x 2 weeks, and then restart the pill daily, see if it makes a difference in the aching. I'll see her in 6 weeks, if this is statin muscle toxicity, may need to treat. Treatment / Plan: 1) continue on the metformin 2) stop that atorvastatin for at least 2 weeks, then start taking ONE A DAY, and see if the aching returns. If it does, then stop again and wait till I see you in 6 weeks. Silvio Gerard MD Data iPhone=[employer] Data Review: Component Latest Ref Rng AND Units 03/06/2022 Free T4 0.9 - 1.7 ng/dL 1.7 TSH 0.270 - 4.200 mIU/L 1.000 Thyroglobulin 1.6 - 59.9 ng/mL 6.5 Thyroglobulin Ab <14.4 IU/mL <1.0 Component Latest Ref Rng AND Units 03/06/2022 Hemoglobin A1C 4.3 - 5.6 % 5.7 (H) History Prediabetes : taking metformin ER 500g x 2/d, has decreased weight by 10 lb. has terrible cold Thyroid CA History Surgery (01/14/06): right thyroid lobectomy and isthmus resection, Dr. Rico Johnson. Pathology (01/14/06): papillary CA, 0.3cm in right lobe, no other CA found.. Thyroglobulin Component Thyroglobulin TG Antibody Screen Ref Rng 1.6 - 59.9 ng/mL <14.4 IU/mL 03/17/2006 12.4 < 20.0 09/10/2007 6.9 <8.0 07/21/2008 8.2 <8.0 07/28/2009 9.6 0.7 08/17/2010 8.0 <1.0 11/27/2011 6.6 1.2 09/28/2014 6.6 1.2 12/26/2016 4.6 <1.0 10/22/2017 4.3 <1.0 01/31/2021 5.2 <1.0 Vitamin D Component Vitamin D 25 Hydroxy Latest Ref Rng AND Units 31.0 - 80.0 ng/mL 07/21/2008 <7.0 (L) 07/28/2009 53.7 08/17/2010 48.3 12/18/2011 53.0 02/05/2013 35.2 09/28/2014 29.4 (L) ROS PHYSICAL EXAM There were no vitals taken for this visit. PAST MED / SURG / FAMILY / SOCIAL HISTORY PAST MEDICAL HISTORY Diagnosis Date Abdominal pain, epigastric ACUTE GASTRITIS W/O HEMORRHAGE 05/20/2006 Depressive disorder, not elsewhere classified Diaphragmatic hernia without mention of obstruction or gangrene Diffuse cystic mastopathy 03/08/2009 Hyperopia, right 12/03/2020 Nocturia 08/07/2016 PMH - PAST MEDICAL HISTORY OF thyroid cancer PAST SURGICAL HISTORY Procedure Laterality Date D AND C ESOPHAGOGASTRODUODENOSCOPY TRANSORAL DIAGNOSTIC 05/20/2006 EGD LAPAROSCOPIC GASTRIC BAND PROCEDURE 2011 LASIK PROCEDURE PAST SURGICAL HISTORY OF part of thryoid removed PAST SURGICAL HISTORY OF cyst removed from tongue FAMILY HISTORY Problem Relation Age of Onset Breast Cancer Maternal Aunt Cancer Maternal Grandfather Diabetes Mother Heart Mother other (reflux) Father Social History Tobacco Use Smoking status: Never Smokeless tobacco: Never Vaping Use Vaping Use: Never used Substance Use Topics Alcohol use: No Drug use: No MEDICATIONS AND ALLERGIES Current Outpatient Medications Medication Sig Dispense Refill CPAP/BIPAP/OTHER New start Auto CPAP with settings of 5-15 cm H20. Lifetime supplies for Auto CPAP, including patient preferred mask, head gear, heated tubing, humidity, filters, chin strap. Dx: Obstructive Sleep Apnea G47.33 DME: [facility]- phone [phone] Fax download report to [phone] and/or set up appropriate acct access. 1 Each 0 metFORMIN ER (GLUCOPHAGE XR) 500 mg 24 hr tablet Take 2 tablets by mouth once daily. 120 tablet 11 MAGNESIUM ORAL Take 1 tablet by mouth once daily. levothyroxine (SYNTHROID) 75 mcg tablet Take 1 tablet by mouth once daily. 90 tablet 3 atorvastatin (LIPITOR) 20 mg tablet Take 1 tablet by mouth daily at bedtime. 90 tablet 3 multivitamin tablet Take 1 tablet by mouth once daily. 0 No current facility-administered medications for this visit. ALLERGIES Allergen Reactions Clindamycin Diarrhea Simvastatin Intolerance Myalgia Tapes [Other] Other: See Comments Some tape tears skin off Codeine [facility] 07-29-2022 Instructions Silvio Gerard MD - 07/29/2022 11:10 AM EDT Assessment / Plan Assessment: 1) Thyroid microcarcinoma, has a thyroid nodule 1cm diameter in remaining left lobe, will need FNA. 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 3) Prediabetes, tolerating metformin ER 500mg 2x/d, HbA1c has dropped a little 4) Hypercholesterolemia, having myalgia, keeps taking 2-3/wk of atorvastatin, I'll have her stop x 2 weeks, and then restart the pill daily, see if it makes a difference in the aching. I'll see her in 6 weeks, if this is statin muscle toxicity, may need to treat. Treatment / Plan: 1) continue on the metformin 2) stop that atorvastatin for at least 2 weeks, then start taking ONE A DAY, and see if the aching returns. If it does, then stop again and wait till I see you in 6 weeks. Silvio Gerard MD documented in this encounter [facility] 07-29-2022 History of Presen t illness Narrative Virtual Visit utilizing both audio and video components MyChart-Zoom I have communicated my name and active licensure. The patient's identity and physical location were verified at the time of this visit. Either the patient or their legal distribution sales representative has been informed of the risks and benefits of -- and alternatives to -- treatment through a remote evaluation and consents to proceed with the evaluation remotely. Patient location: at home [facility] Assessment / Plan Assessment: 1) Thyroid microcarcinoma, has a thyroid nodule 1cm diameter in remaining left lobe, will need FNA. 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 3) Prediabetes, tolerating metformin ER 500mg 2x/d, HbA1c has dropped a little 4) Hypercholesterolemia, having myalgia, keeps taking 2-3/wk of atorvastatin, I'll have her stop x 2 weeks, and then restart the pill daily, see if it makes a difference in the aching. I'll see her in 6 weeks, if this is statin muscle toxicity, may need to treat. Treatment / Plan: 1) continue on the metformin 2) stop that atorvastatin for at least 2 weeks, then start taking ONE A DAY, and see if the aching returns. If it does, then stop again and wait till I see you in 6 weeks. Silvio Gerard MD Data iPhone=[employer] Data Review: Component Latest Ref Rng & Units 03/06/2022 Free T4 0.9 - 1.7 ng/dL 1.7 TSH 0.270 - 4.200 mIU/L 1.000 Thyroglobulin 1.6 - 59.9 ng/mL 6.5 Thyroglobulin Ab <14.4 IU/mL <1.0 Component Latest Ref Rng & Units 03/06/2022 Hemoglobin A1C 4.3 - 5.6 % 5.7 (H) History Prediabetes : taking metformin ER 500g x 2/d, has decreased weight by 10 lb. has terrible cold Thyroid CA History Surgery (01/14/06): right thyroid lobectomy and isthmus resection, Dr. Rico Johnson. Pathology (01/14/06): papillary CA, 0.3cm in right lobe, no other CA found.. Thyroglobulin Component Thyroglobulin TG Antibody Screen Ref Rng 1.6 - 59.9 ng/mL <14.4 IU/mL 03/17/2006 12.4 < 20.0 09/10/2007 6.9 <8.0 07/21/2008 8.2 <8.0 07/28/2009 9.6 0.7 08/17/2010 8.0 <1.0 11/27/2011 6.6 1.2 09/28/2014 6.6 1.2 12/26/2016 4.6 <1.0 10/22/2017 4.3 <1.0 01/31/2021 5.2 <1.0 Vitamin D Component Vitamin D 25 Hydroxy Latest Ref Rng & Units 31.0 - 80.0 ng/mL 07/21/2008 <7.0 (L) 07/28/2009 53.7 08/17/2010 48.3 12/18/2011 53.0 02/05/2013 35.2 09/28/2014 29.4 (L) ROS PHYSICAL EXAM There were no vitals taken for this visit. PAST MED / SURG / FAMILY / SOCIAL HISTORY PAST MEDICAL HISTORY Diagnosis Date Abdominal pain, epigastric ACUTE GASTRITIS W/O HEMORRHAGE 05/20/2006 Depressive disorder, not elsewhere classified Diaphragmatic hernia without mention of obstruction or gangrene Diffuse cystic mastopathy 03/08/2009 Hyperopia, right 12/03/2020 Nocturia 08/07/2016 PMH - PAST MEDICAL HISTORY OF thyroid cancer PAST SURGICAL HISTORY Procedure Laterality Date D AND C ESOPHAGOGASTRODUODENOSCOPY TRANSORAL DIAGNOSTIC 05/20/2006 EGD LAPAROSCOPIC GASTRIC BAND PROCEDURE 2011 LASIK PROCEDURE PAST SURGICAL HISTORY OF part of thryoid removed PAST SURGICAL HISTORY OF cyst removed from tongue FAMILY HISTORY Problem Relation Age of Onset Breast Cancer Maternal Aunt Cancer Maternal Grandfather Diabetes Mother Heart Mother other (reflux) Father Social History Tobacco Use Smoking status: Never Smokeless tobacco: Never Vaping Use Vaping Use: Never used Substance Use Topics Alcohol use: No Drug use: No MEDICATIONS & ALLERGIES Current Outpatient Medications Medication Sig Dispense Refill CPAP/BIPAP/OTHER New start Auto CPAP with settings of 5-15 cm H20. Lifetime supplies for Auto CPAP, including patient preferred mask, head gear, heated tubing, humidity, filters, chin strap. Dx: Obstructive Sleep Apnea G47.33 DME: [facility]- phone [phone] Fax download report to [phone] and/or set up appropriate acct access. 1 Each 0 metFORMIN ER (GLUCOPHAGE XR) 500 mg 24 hr tablet Take 2 tablets by mouth once daily. 120 tablet 11 MAGNESIUM ORAL Take 1 tablet by mouth once daily. levothyroxine (SYNTHROID) 75 mcg tablet Take 1 tablet by mouth once daily. 90 tablet 3 atorvastatin (LIPITOR) 20 mg tablet Take 1 tablet by mouth daily at bedtime. 90 tablet 3 multivitamin tablet Take 1 tablet by mouth once daily. 0 No current facility-administered medications for this visit. ALLERGIES Allergen Reactions Clindamycin Diarrhea Simvastatin Intolerance Myalgia Tapes [Other] Other: See Comments Some tape tears skin off Codeine documented in this encounter [facility] 07-20-2022 Note HNO ID: [id number] Author: Silvio Gerard MD Service: ? Author Type: Physician Type: Procedures Filed: 07/20/2022 7:35 PM Note Text: Thyroid / Neck Ultrasound Findings: Subtle nodule in left lower pole, Impression Benign picture Recommendation: followup thyroid ultrasound in 1 year Silvio Gerard MD Ultrasound images: left lower pole thyroid nodule 0.83cm sag x 0.44cm deep x 0.75cm trans sag trans Clinical Issues Reason for the study: thyroid nodule reported on Radiology ultrasound Comparison: 03/12/22 Technical Issues Equipment: [employer] Prosound Alpha 6 Transducer: Linear/Trapezoidal multifrequency Regions examined: Neck, Thyroid, Sagittal and transverse views were obtained. Color power Doppler were applied when indicated. [facility] 07-20-2022 Procedure note Images from the original note were not included. Thyroid / Neck Ultrasound Findings: Subtle nodule in left lower pole, Impression Benign picture Recommendation: followup thyroid ultrasound in 1 year Silvio Gerard MD Ultrasound images: left lower pole thyroid nodule 0.83cm sag x 0.44cm deep x 0.75cm trans sag trans Clinical Issues Reason for the study: thyroid nodule reported on Radiology ultrasound Comparison: 03/12/22 Technical Issues Equipment: [employer] Prosound Alpha 6 Transducer: Linear/Trapezoidal multifrequency Regions examined: Neck, Thyroid, Sagittal and transverse views were obtained. Color power Doppler were applied when indicated. documented in this encounter [facility] 06-25-2022 Miscellaneous Notes Pt contacted about LAB's being placed. Addended by: SILVIO GERARD on: 06/25/2022 08:51 AM Modules accepted: Orders Let her know this lab has been ordered Patient requesting lab order to check cholesterol. documented in this encounter [facility] 06-06-2022 History of Presen t illness Narrative . documented in this encounter [facility] 05-29-2022 History of Presen t illness Narrative [facility] DME ISSUE NOTE Patient identified by name and date: Yes Subjective: Jay Sorensen is a 67 year old female seen today for fitting and diamond picker of custom foot orthotics. Equipment Owned: none DME Delivery: Pt was educated on wear schedule and care of custom foot orthotics. Pt was educated on the option of having orthotics refurbished as needed in the future as long as shell is performing it's intended function well. Pt was educated on approximate cost of refurbishing orthotics and an approximate time frame when this might be necessary. Pt was urged to follow the wear schedule and to call with any questions or concerns. Pt was instructed to start with wearing orthotics one hour the first day and then to add one hour of wear time per day until signal timer wear is achieved. Pt was educated on how to remove insoles from shoes and then place orthotics in shoes. The fit of orthotics was assessed with pt standing, with and without shoes. The comfort of orthotics was assessed with pt standing and walking with orthotics in shoes. Pt denied any rubbing or pinching and felt that fit of custom orthotics was correct. Contact information for this therapist was provided to patient. Custom biomechanical foot orthotics with serial number: #[id number] were issued to patient and proof of receipt form signed by pt and therapist. All specifications for custom foot orthotics can be found in orthotic evaluation visit note. Planned Interventions: Follow up as needed for brace fitting/issues. Billing:[facility]: Orthotics Management and Training ([id number]): 1:1 time: 20 minutes (1 unit: 8-22 mins) Equipment: [id number] pair of custom foot orthotics Total time: 20 minutes Kendell Andrea PT documented in this encounter [facility] 05-29-2022 Miscellaneous Notes pt called and [facility] [place] [facility] [place] [facility] [facility] [place] Faxed order, office notes, demographics and sleep study to: DME name: [facility] fax # [phone] DME Faxed info in patient's chart. documented in this encounter [facility] 05-28-2022 Miscellaneous Notes Faxed order, office notes, demographics and sleep study to: DME name: [facility] fax # [phone] DME Faxed info in patient's chart. documented in this encounter [facility] 05-28-2022 Tico Jorge APRN.PHOTORADIO OPERATOR - 05/28/2022 12:00 PM EST Images from the original note were not included. PLAN: NOLAN: - Discussed diagnosis, causes, and conditions associated with obstructive sleep apnea. - Avoid driving when drowsy. Recommend that if you are dozing off while driving, that you do not drive until your sleepiness is appropriately treated. - Encouraged healthy lifestyle with adequate sleep (7-9 hours per night), diet and exercise. - Encouraged patient to avoid supine sleep if possible. - Various treatment options discussed. - Patient agreed to proceed with PAP (positive airway pressure) therapy. - Discussed mask options. - Will start Auto CPAP 5-15 cmH2O. - I will have a prescription sent to a docplanner (durable medical equipment) company - [employer] ([place], [place]) [phone] . They will reach out to you in the next 1-2 weeks. - If they do not accept your insurance, we will forward your orders to a different DME company and notify you. - If you do not hear from them within 2 weeks, please contact them directly - Let them know what mask you would like to use. (See pictures in AVS) - Start using your device right away - We can adjust pressure for comfort if requested prior to next visit. - You should be eligible for new supplies approximately every 3-6 months, depending on your insurance coverage. - If your mask doesn't fit well, call the DME company within the first 30 days to get a new mask without an additional charge. INSURANCE REQUIREMENTS: - Your insurance requires a follow up visit within a 31-90 day period after starting PAP device. This may be virtual or in-person. - Your insurance requires compliance with using your PAP device, which is at least 4 hours per night for 70% of the time. This must be done over a 30 day period and must occur within the initial 31-90 day period after starting PAP therapy. - Your insurance also requires at least yearly follow ups to continue to pay for PAP supplies. - After you receive your machine, please call [phone] to schedule a follow up appointment in Sleep Disorders Thursday through Thursday during regular business hours, or call the Appointment Center 08/12 - [phone]. RLS: - Iron studies unremarkable from 02/2022 - If RLS symptoms persist despite NOLAN management, pharmacologic treatment will be considered. - Nonmedical therapy for restless legs syndrome includes: cold/warm compresses, warm/hot baths or showers, gentle massage, mild leg stretching at nighttime, magnesium supplements (500mg-1000mg daily). Mentally alerting activities help too, during awake hours. Note that caffeine, alcohol, antidepressants, antinausea medications and antihistamines can cause or worsen symptoms. Below are mask options to explore. If you breathe through your mouth at night, you may need to use mouth tape or a chin strap if you use a nasal mask. - Mouth Tape: (Somnifix); [id number]; not covered by insurance - Chin strap: can be supplied through DME and billed to insurance or purchased out of pocket Nasal masks: (Picture below each name) Dreamwear under the nose, nasal mask Aiden nasal mask Resmed Airfit N30 Resmed Airfit N30i Nasal pillow masks: (Picture below each name) Resmed Airfit P10 Resmed Tellez FX F&P Brevida Nasal pillow Mask Dreamwear Gel Nasal Pillow Mask Hybrid Masks to try: (Picture below each name) F&P Aiden full face mask Mei View mask Resmed Airfit F30 Mask ResMed AirFit F30i mask PAP Supply Guidelines Below are the guidelines for reordering your supplies. You will be responsible for your deductible, co-payments, and out of pocket expenses. Item Medicare & Commercial Insurance Medicaid & HCAP Nasal Mask (no headgear) 1 every 3 months 1 per year Nasal Mask Cushion 1 every month 2 per year Full Face Mask (no headgear) 1 every 3 months 1 per year Full Face Mask Cushion 1 every month *Self-Pay Nasal Pillows 2 every month 2 per year Headgear 1 every 6 months 1 per year Chin Strap 1 every 6 months 2 per year Tubing 1 every 3 months 1 per year Filters: Reusable 1 every 6 months 4 per year Filters: Disposable 2 every month 1 per month Humidifier Chamber(disposable) 1 every 6 months *Self-Pay Contacting the Sleep Disorders Center: - Appointments can be scheduled through the central scheduling system for the [facility] at [phone]. - Call the Sleep Disorders Center at [phone] for questions. - May use Message [employer] [facility] through [employer] for questions. - [facility] Sleep Disorders Center website: [email or web address] ___ Sleep Apnea What is sleep apnea? Sleep apnea is a serious sleep disorder that occurs when a person s breathing is interrupted during sleep. People with untreated sleep apnea stop breathing repeatedly during their sleep, sometimes hundreds of times during the night. There are two types of sleep apnea: obstructive and central. Obstructive sleep apnea (NOLAN) is the more common of the two. Obstructive sleep apnea occurs as repetitive episodes of complete or partial upper airway blockage during sleep. During an apnea episode, the diaphragm and chest muscles work harder as the pressure increases to open the airway. Breathing usually resumes with a loud gasp or body jerk. These episodes can interfere with sound sleep, reduce the flow of oxygen to vital organs, and cause heart rhythm irregularities. In central sleep apnea (CSA), the airway is not blocked but the brain fails to signal the muscles to breathe due to instability in the respiratory control center. Central apnea is named as such because it is related to the function of the central nervous system. Who gets sleep apnea? Sleep apnea occurs in about 25 percent of men and nearly 10 percent of women. Sleep apnea can affect people of all ages, including babies and children and particularly people over the age of forty and those who are overweight. Certain physical traits and clinical features are common in patients with obstructive sleep apnea. These include excessive weight, large neck, and structural abnormalities reducing the diameter of the upper airway, such as nasal obstruction, a low-hanging soft palate, enlarged tonsils, or a small jaw with an overbite. The figures below illustrate the upper airway in normal sleep: (A) person is lying on back, face up, and (B) in obstructive sleep apnea. The arrows indicate complete obstruction in the back of the throat. Normal (A) Sleep apnea (B): What causes sleep apnea? Obstructive sleep apnea is caused by a blockage of the airway, usually when the soft tissues in the rear of the throat collapse during sleep. Central sleep apnea is usually observed in patients with central nervous system dysfunction, such as following a stroke or in patients with neuromuscular diseases like amyotrophic lateral sclerosis. It is also common in patients with heart failure and other forms of cardiac and pulmonary disease. What are the symptoms of sleep apnea? Often the first signs of obstructive sleep apnea are recognized not by the patient, but by the bed partner. Many of those affected have no sleep complaints. The most common symptoms of NOLAN include: Snoring Daytime sleepiness or fatigue Restlessness during sleep Sudden awakenings with a sensation of gasping or choking Dry mouth or sore throat upon awakening Intellectual impairment, such as trouble concentrating, forgetfulness, or irritability Night sweats Sexual dysfunction Headaches People with central sleep apnea more often report recurrent awakenings or insomnia, although they may also experience a choking or gasping sensation with sudden awakenings. Symptoms in children may not be as obvious and include: Poor school performance Sluggishness or sleepiness, often misinterpreted as laziness in the classroom Daytime mouth breathing and swallowing difficulty Inward movement of the ribcage when inhaling Unusual sleeping positions, such as sleeping on the hands and knees, or with the neck hyper-extended Excessive sweating at night Learning and behavioral disorders Bedwetting What are the effects of sleep apnea? If left untreated, sleep apnea can result in a number of health problems including hypertension, stroke, arrhythmias, cardiomyopathy (enlargement of the muscle tissue of the heart), congestive heart failure, diabetes, and heart attacks. In addition, untreated sleep apnea may be responsible for job impairment, work-related accidents, and motor vehicle crashes as well as academic underachievement. How is sleep apnea diagnosed? The diagnosis of sleep apnea is relatively straightforward, based on sleep history and an overnight sleep study called a polysomnogram. Polysomnogram is performed in a sleep laboratory under the direct supervision of a trained technologist. During the test, a variety of body functions, such as the electrical activity of the brain, eye movements, muscle activity, heart rate, breathing patterns, air flow, and blood oxygen levels are recorded at night during sleep. After the study is completed, the number of times breathing is impaired during sleep is tallied and the severity of sleep apnea is graded. In some cases, a multiple sleep latency test is performed on the day after the overnight test to measure the speed of falling asleep. In this test, patients are given several opportunities to fall asleep during the course of a day when they normally would be awake. If you have symptoms of sleep apnea, your doctor may ask you to have a sleep evaluation in a sleep disorder center. What are the treatments for sleep apnea? Conservative treatments: In mild cases of sleep apnea, conservative therapy may be all that is needed. Overweight persons can benefit from losing weight. Even a ten percent weight loss can reduce the number of apneic events for most patients. Individuals with apnea should avoid the use of alcohol and sleeping pills, which make the airway more likely to collapse during sleep and prolong the apneic periods. In some patients with mild sleep apnea, breathing pauses occur only when they sleep on their backs. In such cases, using pillows and other devices that help them sleep in a side position may be helpful. People with sinus problems or nasal congestion (such people are more likely to experience sleep apnea) should use nasal sprays or breathing strips to reduce snoring and improve airflow for more comfortable nighttime breathing. Avoiding sleep deprivation is important for all patients with sleep disorders. Mechanical therapy: Continuous Positive Airway Pressure (CPAP) is the preferred initial treatment for most people with obstructive sleep apnea. With CPAP, patients wear a mask over their nose and/or mouth. An air blower forces air through the nose and/or mouth. The air pressure is adjusted so that it is just enough to prevent the upper airway tissues from collapsing during sleep. The pressure is constant and continuous. CPAP prevents airway closure while in use, but apnea episodes return when CPAP is stopped or it is used improperly. Other styles and types of positive airway pressure devices are available for people who have difficulty tolerating CPAP. These include Bilevel Positive Airway Pressure (BiPAP), Auto Positive Airway Pressure (AutoPAP), Auto/Adaptive Servo-Ventilation (ASV), etc Oral appliances: For patients with mild/moderate sleep apnea, dental appliances or oral mandibular advancement devices that prevent the tongue from blocking the throat and/or advance the lower jaw forward can be made. These devices help keep the airway open during sleep. A sleep specialist and wire galvanizer (with expertise in oral appliances for this purpose) should jointly determine if this treatment is best for you. Surgery: Surgical procedures may help people with sleep apnea. There are many types of surgical procedures, some of which are performed as outpatient procedures. Surgery is reserved for people who have excessive or malformed tissue obstructing airflow through the nose or throat, such as a deviated nasal septum, markedly enlarged tonsils, or small lower jaw with an overbite that causes the throat to be abnormally narrow. These procedures are typically performed after sleep apnea has failed to respond to conservative measures and a trial of positive airway pressure treatment. Types of surgery include: Somnoplasty: A minimally invasive procedure that uses radiofrequency energy to reduce the soft tissue in the upper airway. Uvulopalatopharyngoplasty (UPPP): A procedure that removes soft tissue on the back of the throat and palate, increasing the width of the airway at the throat opening. Maxillary/Mandibular advancement surgery: A surgical correction of certain facial abnormalities or throat obstructions that contribute to sleep apnea. This is an invasive procedure that is reserved for patients with severe sleep apnea with head-face abnormalities. Nasal surgery: Correction of nasal obstructions, such as a deviated septum. Hypoglossal nerve stimulator (e.g. Inspire ): FDA approved 2013. (Implant that sends a lead that goes to bottom of tongue to stimulate it forward out of the area of the back of the throat) Neuromuscular electrical stimulation: (NMES, e.g. eXciteOSA ): For snoring or mild obstructive sleep apnea. Not currently covered by insurance. This device is worn for 20 minutes during the daytime, and stimulates the muscles of the tongue to help improve muscle endurance. Resources: [facility] Guide to Sleep Disorders by Leisa Argueta DO National Sleep Foundation [address] [place] [address] [address] [facility] [id number] [email or web address] [email or web address] [employer] [address] [place] [address], [address] [place] [address] [email or web address] documented in this encounter [facility] 05-28-2022 History of Presen t illness Narrative Images from the original note were not included. [facility] Sleep Disorders Center Follow up/ Established patient visit Visit performed virtually, with the patient's permission. Date of last visit : 02/05/2022 Per last visit: IMPRESSION/PLAN: R29.818 Suspected sleep apnea (primary encounter diagnosis) R06.83 Snoring G47.19 Excessive daytime sleepiness G25.81 Restless leg syndrome Z13.0 Screening, iron deficiency anemia R79.0 Low iron stores 67 year old female with previous history of RLS, now presents with worsening snoring, waking up choking/gasping for air, multiple awakenings, frequent movement in bed, leg kicking, EDS, tiredness along with worsening of her RLS symptoms. These findings are concerning for underlying sleep apnea, likely obstructive. - Patient will benefit from Home Sleep Apnea Test (HST) to evaluate for obstructive sleep apnea, given high Stopbang score. - Discussed with the patient the possible diagnosis, causes, and conditions associated with obstructive sleep apnea. - Ordered Iron studies to check ferritin levels and it's association with RLS. - Avoid driving when drowsy. Recommend that if you are dozing off while driving, that you do not drive until your sleepiness is appropriately treated. -Encouraged healthy lifestyle with adequate sleep ( 7-9 hours per night), diet and exercise. - Results are usually available within 7-10 business days. If you do not hear from us within 1-2 weeks after testing, please contact us directly. - Follow up visit in 2-3 weeks after sleep study. Please schedule this appointment now to ensure your preferred time and location. Sonia Sanchez MD Sleep Medicine Fellow Case discussed with Dr. pierce, who agrees with the assessment and plan. Please see her attestation below for further recommendations. I have interviewed the patient and personally reviewed all aspects of the history and physical examination. I confirmed all findings as recorded by the fellow. I participated in the management of the patient and agree with assessment and plan as documented by the fellow. Lisa Pierce MD Here for follow up for Sleep Study Results Interval history : Patient checked in at 10:17 for 10 AM virtual visit, and then was unable to connect to audio. At 10:23 AM I contacted the patient by phone for audio while remaining on Zoom for video, d/t inability to connect to audio. Patient endorses concerns regarding breathing while sleeping. She endorses symptoms of snoring, choking/gasping when waking from sleep, waking multiple times per night, restless leg syndrome, EDS, and chronic fatigue. She reports she recently had a hysterectomy and had difficulty coming out from anesthesia due to shallow breathing. She states that during the postoperative period, 3 nurses asked her if she had sleep apnea. A Home Sleep Test (HST) performed on 02/23/2022 revealed at least mild NOLAN (AHI of 8.3) that was associated with a minimum oxygen saturation of 84%; patient spent 63.7 mins with oxygen saturation less than 90%. SLEEP APNEA Sleep apnea type : NOLAN, Most Recent Apnea-Hypopnea Index (AHI): 8.3 Treatment : None SLEEP HYGIENE QUESTIONS: Bedtime : 11 PM Wake up Time : 2-330 AM and is awake for a few hours, then sometimes goes back to bed until 9 AM Number of times patient wakes up per night : at least once Reason (s) why patient wakes up during the night : unknown; some physical discomfort with side-sleeping d/t knees RLS: Status: Unchanged Iron studies from 02/26/2022 unremarkable Ferritin Date Value Ref Range Status 02/26/2022 189.0 14.7 - 205.1 ng/mL Final Transferrin Saturation Date Value Ref Range Status 02/26/2022 27.5 15.0 - 57.0 % Final PATIENT-ENTERED QUESTIONNAIRE SLEEP SCORES Sleep Questions 05/27/2022 Reason for visit: Sleep apnea, Restless Legs Syndrome Average hours slept in 24 hours: - Accidents or near accidents due to drowsy drivin [place] Sleepiness Scale 02/05/2022 04/16/2022 05/27/2022 Score 1 (No daytime sleepiness) 16 (severe daytime sleepiness) 1 (No daytime sleepiness) PROMIS CAT Sleep Disturbance 02/05/2022 04/16/2022 05/27/2022 PROMIS Sleep Disturbance T-Score 62 (moderate) 60 (mild) 54 (within normal limits) Insomnia Severity Index 02/05/2022 04/17/2022 Score 14 14 Restless Leg Syndrome 04/17/2022 Score Incomplete PHQ-9 04/17/2022 05/27/2022 05/27/2022 Score 5 0 0 PROMIS Global Health - (T-Scores - the mean of general population = 50. Five points is a clinically meaningful difference.) 02/05/2022 05/27/2022 05/27/2022 Physical T-Score 37.4 44.9 44.9 Mental T-Score 43.5 43.5 43.5 PMH, PSH, SH: Reviewed SLEEP RELATED ROS Review of Systems Constitutional: Positive for fatigue. Respiratory: Negative for cough. Genitourinary: Positive for nocturia. Musculoskeletal: Positive for uncomfortable leg sensations. Psychiatric: + insomnia ALLERGIES Allergen Reactions Clindamycin Diarrhea Simvastatin Intolerance Myalgia Tapes [Other] Other: See Comments Some tape tears skin off Codeine CURRENT MEDICATIONS: metFORMIN ER (GLUCOPHAGE XR) 500 mg 24 hr tablet Take 2 tablets by mouth once daily. MAGNESIUM ORAL Take 1 tablet by mouth once daily. levothyroxine (SYNTHROID) 75 mcg tablet Take 1 tablet by mouth once daily. atorvastatin (LIPITOR) 20 mg tablet Take 1 tablet by mouth daily at bedtime. multivitamin tablet Take 1 tablet by mouth once daily. pantoprazole sodium(PROTONIX 40 MG TAB) Take 40 mg by mouth as needed. PHYSICAL EXAMINATION: Vital signs not obtained d/t virtual visit. General appearance: NAD, well groomed HEENT: Normocephalic, atraumatic Neuro: Awake, alert, memory grossly intact, speech is fluent Respiratory: No increased work of breathing; able to speak in complete sentences Psych: Appropriate, normal affect IMPRESSION: Nolan (obstructive sleep apnea) (primary encounter diagnosis) Excessive daytime sleepiness Chronic insomnia Rls (restless legs syndrome) Jay Sorensen is a 67 year old female with PMH of RLS, HLD, hypothyroidism, thyroid nodule, plantar fascial fibromatosis, and obesity. She presented for evaluation d/t sx of worsening snoring, waking up choking/gasping for air, multiple awakenings, frequent movement in bed, leg kicking, EDS, and worsening of her RLS symptoms. A Home Sleep Test (HST) performed on 02/23/2022 revealed at least mild NOLAN (AHI of 8.3) that was associated with a minimum oxygen saturation of 84%; patient spent 63.7 mins with oxygen saturation less than 90%. Results of HST discussed in detail, including possible underestimation of severity of sleep apnea. Treatment options discussed with patient. Patient is agreeable to proceeding with PAP therapy for treatment of NOLAN. PLAN: NOLAN: - Discussed diagnosis, causes, and conditions associated with obstructive sleep apnea. - Avoid driving when drowsy. Recommend that if you are dozing off while driving, that you do not drive until your sleepiness is appropriately treated. - Encouraged healthy lifestyle with adequate sleep (7-9 hours per night), diet and exercise. - Encouraged patient to avoid supine sleep if possible. - Various treatment options discussed. - Patient agreed to proceed with PAP (positive airway pressure) therapy. - Discussed mask options. - Will start Auto CPAP 5-15 cmH2O. - I will have a prescription sent to a docplanner (durable medical equipment) company - [facility] ([place], [place]) [phone] . They will reach out to you in the next 1-2 weeks. - If they do not accept your insurance, we will forward your orders to a different docplanner company and notify you. - If you do not hear from them within 2 weeks, please contact them directly - Let them know what mask you would like to use. (See pictures in AVS) - Start using your device right away - We can adjust pressure for comfort if requested prior to next visit. - You should be eligible for new supplies approximately every 3-6 months, depending on your insurance coverage. - If your mask doesn't fit well, call the DME company within the first 30 days to get a new mask without an additional charge. INSURANCE REQUIREMENTS: - Your insurance requires a follow up visit within a 31-90 day period after starting PAP device. This may be virtual or in-person. - Your insurance requires compliance with using your PAP device, which is at least 4 hours per night for 70% of the time. This must be done over a 30 day period and must occur within the initial 31-90 day period after starting PAP therapy. - Your insurance also requires at least yearly follow ups to continue to pay for PAP supplies. - After you receive your machine, please call [phone] to schedule a follow up appointment in Sleep Disorders Thursday through Thursday during regular business hours, or call the Appointment Center 08/12 - [phone]. RLS: - Iron studies unremarkable from 02/2022 - If RLS symptoms persist despite NOLAN management, pharmacologic treatment will be considered. - Nonmedical therapy for restless legs syndrome includes: cold/warm compresses, warm/hot baths or showers, gentle massage, mild leg stretching at nighttime, magnesium supplements (500mg-1000mg daily). Mentally alerting activities help too, during awake hours. Note that caffeine, alcohol, antidepressants, antinausea medications and antihistamines can cause or worsen symptoms. Judy Jorge APRN.CNP I spent a total of 35 minutes on the date of the service which included preparing to see the patient, [id number] patient care, completing clinical documentation, obtaining and/or reviewing separately obtained history, performing a medically appropriate examination, counseling and educating the patient/family/caregiver, ordering medications, tests, or procedures, and communicating results to the patient/family/caregiver. documented in this encounter [facility] 05-01-2022 History of Presen t illness Narrative Episode Visit Count: 1 Therapist That Will Accept/Oversee The Plan Of Care: Kendell Andrea PT Start of Care Date: 05/01/22 Onset Date: 12/30/21 Plan of Care Certification Date: 05/01/22 Next Certification Due Date: 06/12/22 Patient Identified by Name and Date of : Yes REHABILITATION AND SPORTS THERAPY PHYSICAL THERAPY EVALUATION PLAN OF CARE: Assessment: Jay Sorensen presents with chief complaint of R hallux valgus and L plantar fasciitis that interferes with walking (exercising) . She presents with impairments in balance, gait, independence in exercise, overall function, and symptom management. Prognosis for therapy is Excellent due to: good overall health status;current objective clinical presentation;within-session changes;good support system/ coping skills. She will benefit from skilled therapy services to meet the goals established for this plan of care as noted below. Goals for Episode of Care: created on 05/01/22 through 06/12/22 Pt will be educated on proper wear schedule and care of custom biomechanical foot orthotics Pt will be provided with custom biomechanical B foot orthotics that improve foot and ankle biomechanics as intended with proper fit and function. Patient Goals: decrease pain and maintain an active lifestyle. Planned Interventions, Frequency, and Duration: Current Frequency: 1 visit Duration: 1 visit Total Number of Visits Planned: 2 (1 evaluation visit and 1 visit for fitting and diamond picker) Planned Treatment Interventions: Orthosis / DME;Patient/Family/Caregiver Education;Self-intermediate management (00728);Gait Training (75823);Body Mechanics Training PLAN FOR NEXT VISIT: Fitting and diamond picker of custom foot orthotics Patient demonstrates good understanding of plan of care and treatment. The above goals and plan of care were discussed and agreed upon by patient/family. SUBJECTIVE: Jay Sorensen is a 67 year old female seen today for intermittent pain in L plantar fascia and R great toe due to hallux valgus. She has had shoe inserts in the past that were helpful. She is interested in receiving new custom inserts. She reports that she walks for exercise and wants to continue this. She reports that currently her feet are not hurting but that she has had intermittent pain for many years. Patient Goals: decrease pain and maintain an active lifestyle. Functional Limitations: walking (exercising) Prior Level of Function: Independent without limitations Relevant History Employment: Unemployed Recreation / Current Exercise: walks regularly for exercise Home Environment Patient Lives With: Spouse Equipment Owned: Orthosis Intake Information: Prescription present Previous Treatment: Exercises per physician;Self prescribed exercises;Orthotics ;Ice ;Immobilizer/brace Pain: Pain Pain Level: 0 (0/10 currently, 6/10 at worst) Pain Location: Heel - Left;Foot - Left;Toe - Right Description: Sharp Frequency: Intermittent Post Treatment Pain Post Treatment Pain Level: No Change PROMIS Scales Higher is Better 02/05/2022 GH Physical - Score 37.4 (Fair) GH Physical - Percentile 10 % GH Mental - Score 43.5 (Good) GH Mental - Percentile 26 % T-scores: mean of general population = 50. 5 points is clinically meaningfully difference Percentiles provide an indication of how the patient's score ranks in relation to the general population. Higher percentile rankings indicate better function/quality of life. 50th percentile is the average of the general population and indicates half of respondents had a worse score. T-scores: mean of general population = 50. 5 points is clinically meaningfully difference Percentiles provide an indication of how the patient's score ranks in relation to the general population. Higher percentile rankings indicate better function/quality of life. 50th percentile is the average of the general population and indicates half of respondents had a worse score. OBJECTIVE MEASURES WITH LEVEL OF FUNCTION: Ankle Observations R Ankle Palpation Tenderness: No tenderness noted L Ankle Palpation Tenderness: No tenderness noted R Foot Observations: callus present at medial and plantar aspects of 1st met head, hallux rigidus L Foot Observations: callus present at medial and plantar aspects of 1st met head, hallux rigidus LE AROM R LE AROM: ankle DF is very limited L LE AROM: ankle DF is very limited Gait Gait Observation: Normal at this time Brace/Orthotics: Pt has a pair of orthotics from a different provider but she is interested in replacing these. Plantar Callus Pattern: Right:plantar surface of 1st met head Left:plantar surface of 1st met head Supine: ROM: Ankle Dorsiflexion: AROM:0 degrees Calcaneal eversion: Right: WNL Left: WNL Hallux dorsiflexion: Open chain right: >65 left: >65 Closed chain right: none left: none Alignment: Rest: Medial arch appearance: Right:Average Left:Low Equinus: Right:forefoot Left:forefoot Prone: Alignment: Subtalar neutral: Right: rearfoot:2 degrees varus forefoot:12 degrees varus Left: Rearfoot: 4 degrees varus Forefoot:5 degrees varus First Ray Position: Right: pf Left: pf First Ray Mobility: Right: flexibile Left:flexibile WEIGHT BEARING: Alignment: Rest: Medial arch appearance: Right: Low Left Low Calcaneal stance position: Right: everted Left everted Knee position: Right: Valgus Left Valgus Subtalar Neutral: Medial arch appearance: Right Average Left:Average Calcaneal stance position: Right: rectus Left: inverted Forefoot position: Right: off ground Left: off ground Knee position: Right: straight Left straight Mobility: Hallux dorsiflexion Closed chain: Right: none Left none Midtarsal Mobility: (navicular drop) Right: hyper >8mm Left:hyper >8mm Rearfoot excursion: Right:>6 hyper Left: >6 hyper FUNCTIONAL EVALUATION: Balance(SL): ability/quality Right: unsteady Left: unsteady Balance Test: *Right: Improved performance with: 2 degree rearfoot 4 degree forefoot wedges *Left: Improved performance with: 2 degree rearfoot 4 degree forefoot wedges Gait Assessment: Walking: normal at the present time Running: not tested Orthotic Design Request Shoe size: 9.5. Weight: 225 pounds. Orthotic (shell): Performance RX-C semi rigid Plate Specifications: Heel Cup Low (12mm), Device Width Bisect 1st Posting: right: 4 degrees for forefoot Intrinsic(2 degrees) and Extrinsic(2 degrees) and 2 degrees for rearfoot Intrinsic left: 4 degrees for forefoot Intrinsic(2 degrees) and Extrinsic(2 degrees) and 2 degrees for rearfoot Intrinsic Additions: none Padding: Type: Poron STD Thickness:1/8 Padding Length:heels to toes Accommodations: Mejias's Extension: Bilateral soft 07/31 Top Covers: Material: leatherette STD - siddharth black Length:to toes Classification of foot type: Compensated forefoot varus Education: Education Learning Preferences: Demonstration;Explanation;Perfor jessica;Printed Materials Barriers: None Learning/educational needs: Procedure / Surgery;Lifestyle changes;Plan of Care;Brace Fit;Body Mechanics;Gait Training Education Provided: Yes, see treatment interventions for education provided Education Provided To: Patient Education Mode/Type: Demonstration;Explanation/Discus tony;Literature/Printed Materials;Performance Response to Education/Teach Back: States/Identifies;Return Demonstration;Requires Review/Additional Education TREATMENT: PT Treatment Interventions: Orthotic Mgmt/Train (Initial) Evaluation Orthotics Management and Training: A thorough and complete biomechanical assessment completed and all results explained to pt in detail. Pt. was educated on the anatomy of affected area, possible source of symptoms and rationale for proposed treatment plan. A variety of different sized wedges were used as trials for posting at both forefoot and rearfoot. Pt ability with single leg stance and single leg squats was tested without wedges and compared to each trial with different size wedges. Once stability was achieved and biomechanics improved, wedge size recorded for future posting prescription. With patient prone, subtalar neutral position digital scans were made of bilateral feet. These scans and and all supporting documentation was prepared for shipment to lab so that custom foot orthotics can be fabricated. Pt was educated on proper fitting shoes to be used with custom foot orthotics. Recommendations were made on brands of shoes that are well constructed and provide appropriate support. Pt was advised to select neutral shoes to pair with the custom foot orthotics despite patient's foot structure. Pt was also given recommendations on supportive sandals and where these can be purchased. Pt was educated on the process that we will follow once custom orthotics arrive in this department and all of the patient's questions were answered. She had lots of questions and therapist answered these to pt's satisfaction. Skilled Intervention: Clinical knowledge and skills required for custom orthotic fabrication and wearing schedule Patient/Family/Caregiver Education: Precautions, purpose and use of orthosis Wearing schedule explained to pt in detail. Discussed management of any symptoms related to wearing the orthosis Billing * Evaluation Moderate Complexity: 1 Unit Orthotic Mgmt/Train (Initial) Treatment Minutes: 45 Total Treatment Time Minutes (timed/untimed): 75 Kendell Andrea PT documented in this encounter [facility] 03-24-2022 Miscellaneous Notes Pt called wondering about the results of her X-ray. documented in this encounter [facility] 03-24-2022 Instructions Silvio Gerard MD - 03/24/2022 10:10 AM EST Assessment / Plan Assessment: 1) Thyroid microcarcinoma, has a thyroid nodule 1cm diameter in remaining left lobe, will need FNA. She would like to wait till May to schedule which is fine. 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 3) Prediabetes, worried about this, I will start he on metformin, work up to 4 per day as tolerated Treatment / Plan: 1) start metformin ER 500mg once a day, then work your way up to 2 pills twice a day, take with food. 2) [place] with blood test (HbA1c) before the visit 3) [place] biopsy Silvio Gerard MD Data Data Review: Component Latest Ref Rng & Units 03/06/2022 Free T4 0.9 - 1.7 ng/dL 1.7 TSH 0.270 - 4.200 mIU/L 1.000 Thyroglobulin 1.6 - 59.9 ng/mL 6.5 Thyroglobulin Ab <14.4 IU/mL <1.0 Component Latest Ref Rng & Units 03/06/2022 Hemoglobin A1C 4.3 - 5.6 % 5.7 (H) HOW TO CONTACT US If you need a refill and you have some time (days): 1) in [employer], click on Menu or the icon with three horizontal lines next to it, then look down to the My Medical Record section in the left margin and click on Medications. Now click the button in the upper right: Request refills. If you have an urgent need for medications, please do not overuse this, it is for things like running out of insulin in the next day: 1) call the on-call Primary Clinician line after 5PM or on weekends, see below. If you need to send a simple question or a message 1) send a [employer] message. The system tells you we will respond in 3 days, but this often backs up to a week, so no urgent messages by this route 2) call our office at [phone] to leave a message for Dr. Gerard's staff If you have a question where some management or change is needed 1) schedule a virtual visit. You can easily do this yourself on [employer] by clicking on Upcoming and Past Appointments along the top, and clicking on the orange button: Schedule an appointment. Or you can call our office to schedule the virtual appointment at [phone]. 2) please note we will soon be charging for management requests sent via [employer] messages How to call Primary Clinician aws solution architect This is available on weekends & holidays, and after 5PM on week. 1) Call our office number [phone]. 2) Press 1 for Internal Medicine and Specialty services. 3) Press 2 for the list of answering services 4) Press 1 for Endocrinology answering service documented in this encounter [facility] 03-24-2022 History of Presen t illness Narrative Virtual Visit utilizing both audio and video components [id number] Assessment / Plan Assessment: 1) Thyroid microcarcinoma, has a thyroid nodule 1cm diameter in remaining left lobe, will need FNA. She would like to wait till May to schedule which is fine. 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 3) Prediabetes, worried about this, I will start he on metformin, work up to 4 per day as tolerated Treatment / Plan: 1) start metformin ER 500mg once a day, then work your way up to 2 pills twice a day, take with food. 2) [place] with blood test (HbA1c) before the visit 3) [place] Silvio Gerard MD Data Data Review: Component Latest Ref Rng & Units 03/06/2022 Free T4 0.9 - 1.7 ng/dL 1.7 TSH 0.270 - 4.200 mIU/L 1.000 Thyroglobulin 1.6 - 59.9 ng/mL 6.5 Thyroglobulin Ab <14.4 IU/mL <1.0 Component Latest Ref Rng & Units 03/06/2022 Hemoglobin A1C 4.3 - 5.6 % 5.7 (H) History Prediabetes : never done anything with this sisters have diabetes, they agreed with idea of metformin. Thyroid CA History Surgery (01/14/06): right thyroid lobectomy and isthmus resection, Dr. Rico Johnson. Pathology (01/14/06): papillary CA, 0.3cm in right lobe, no other CA found.. Thyroglobulin Component Thyroglobulin TG Antibody Screen Ref Rng 1.6 - 59.9 ng/mL <14.4 IU/mL 03/17/2006 12.4 < 20.0 09/10/2007 6.9 <8.0 07/21/2008 8.2 <8.0 07/28/2009 9.6 0.7 08/17/2010 8.0 <1.0 11/27/2011 6.6 1.2 09/28/2014 6.6 1.2 12/26/2016 4.6 <1.0 10/22/2017 4.3 <1.0 01/31/2021 5.2 <1.0 Vitamin D Component Vitamin D 25 Hydroxy Latest Ref Rng & Units 31.0 - 80.0 ng/mL 07/21/2008 <7.0 (L) 07/28/2009 53.7 08/17/2010 48.3 12/18/2011 53.0 02/05/2013 35.2 09/28/2014 29.4 (L) ROS PHYSICAL EXAM There were no vitals taken for this visit. PAST MED / SURG / FAMILY / SOCIAL HISTORY PAST MEDICAL HISTORY Diagnosis Date Abdominal pain, epigastric ACUTE GASTRITIS W/O HEMORRHAGE 05/20/2006 Depressive disorder, not elsewhere classified Diaphragmatic hernia without mention of obstruction or gangrene Diffuse cystic mastopathy 03/08/2009 Hyperopia, right 12/03/2020 Nocturia 08/07/2016 PMH - PAST MEDICAL HISTORY OF thyroid cancer PAST SURGICAL HISTORY Procedure Laterality Date D AND C ESOPHAGOGASTRODUODENOSCOPY TRANSORAL DIAGNOSTIC 05/20/2006 EGD LAPAROSCOPIC GASTRIC BAND PROCEDURE 2011 LASIK PROCEDURE PAST SURGICAL HISTORY OF part of thryoid removed PAST SURGICAL HISTORY OF cyst removed from tongue FAMILY HISTORY Problem Relation Age of Onset Breast Cancer Maternal Aunt Cancer Maternal Grandfather Diabetes Mother Heart Mother other (reflux) Father Social History Tobacco Use Smoking status: Never Smokeless tobacco: Never Vaping Use Vaping Use: Never used Substance Use Topics Alcohol use: No Drug use: No MEDICATIONS & ALLERGIES Current Outpatient Medications Medication Sig Dispense Refill MAGNESIUM ORAL Take 1 tablet by mouth once daily. levothyroxine (SYNTHROID) 75 mcg tablet Take 1 tablet by mouth once daily. 90 tablet 3 atorvastatin (LIPITOR) 20 mg tablet Take 1 tablet by mouth daily at bedtime. 90 tablet 3 multivitamin tablet Take 1 tablet by mouth once daily. 0 pantoprazole sodium(PROTONIX 40 MG TAB) Take 40 mg by mouth as needed. 0 No current facility-administered medications for this visit. ALLERGIES Allergen Reactions Clindamycin Diarrhea Simvastatin Intolerance Myalgia Tapes [Other] Other: See Comments Some tape tears skin off Codeine documented in this encounter [facility] 03-20-2022 Instructions Ismael Betancur - 03/20/2022 10:13 AM EDT I suspect your pain in left foot is more along the 5th metatarsal base and shaft Will get xrays to evaluate for fracture If no fracture, would recommend luu tennis shoe and inserts documented in this encounter [facility] 03-20-2022 History of Presen t illness Narrative Images from the original note were not included. FOLLOW UP PODIATRIC OFFICE VISIT Chief Complaint: This 67 year old who presents for follow up:left foot and ankle pain Patient presents to clinic for evaluation of left foot and ankle swelling Patient states that about 3.5 weeks ago, she went to a ball game and she noticed swelling and bruising in her left medial ankle She had pain. She states she iced the ankle and took medication. The pain has since resolved. PAIN EVALUATION 03/20/2022 0938 Pain Level: 5 8/10 when standing Pain Location: Foot-Left Description: Aching Duration Amount of Time: 6 Duration Units: Days Frequency: Intermittent Intervention/Comfort measure: Reposition;Relaxation;Distractio ns Hemoglobin A1C Date Value Ref Range Status 03/06/2022 5.7 (H) 4.3 - 5.6 % Final Comment: [place] [employer] guidelines indicate that patients with HgbA1c in the range 5.7-6.4% are at increased risk for development of diabetes, and intervention by lifestyle modification may be beneficial. HgbA1c greater or equal to 6.5% is considered diagnostic of diabetes. PCP: Jennifer Jaquez MD PAST MEDICAL HISTORY Diagnosis Date Abdominal pain, epigastric ACUTE GASTRITIS W/O HEMORRHAGE 05/20/2006 Depressive disorder, not elsewhere classified Diaphragmatic hernia without mention of obstruction or gangrene Diffuse cystic mastopathy 03/08/2009 Hyperopia, right 12/03/2020 Nocturia 08/07/2016 PMH - PAST MEDICAL HISTORY OF thyroid cancer Current Outpatient Medications Medication Sig MAGNESIUM ORAL Take 1 tablet by mouth once daily. levothyroxine (SYNTHROID) 75 mcg tablet Take 1 tablet by mouth once daily. atorvastatin (LIPITOR) 20 mg tablet Take 1 tablet by mouth daily at bedtime. multivitamin tablet Take 1 tablet by mouth once daily. pantoprazole sodium(PROTONIX 40 MG TAB) Take 40 mg by mouth as needed. No current facility-administered medications for this visit. ALLERGIES Allergen Reactions Clindamycin Diarrhea Simvastatin Intolerance Myalgia Tapes [Other] Other: See Comments Some tape tears skin off Codeine PAST SURGICAL HISTORY Procedure Laterality Date D AND C ESOPHAGOGASTRODUODENOSCOPY TRANSORAL DIAGNOSTIC 05/20/2006 EGD LAPAROSCOPIC GASTRIC BAND PROCEDURE 2011 LASIK PROCEDURE PAST SURGICAL HISTORY OF part of thryoid removed PAST SURGICAL HISTORY OF cyst removed from tongue Physical Exam: OBJECTIVE: Constitutional: Pt is a well developed 67 year old female who is alert, oriented, cooperative and in no apparent distress. Eyes: Following during examination. No redness or drainage. Respiratory: RR normal and nonlabored. Even breathing. No evidence of distress. Psychology: Patient is engaged during conversation. Normal affect and mood. Does not appear depressed or anxious. NVSI unchanged from previous visit. Dermatological: Nails 1-5 b/l are normal. Webspaces clean and dry 1-4 b/l. Skin appears well hydrated and supple. good color, texture, turgor. No open lesions present. No callosities present. Musculoskeletal/Orthopaedic: Patient has pain to palpation of left 5th metatarsal shaft No pain to left plantar heel There is bunion present to right foot with medial deviation of right 2nd toe ASSESSMENT: (M79.672) Pain in left foot (primary encounter diagnosis) (M20.12) Hallux valgus of left foot (M20.42) Hammer toe of left foot (M72.2) Plantar fasciitis PLAN: Discussed pain in left foot. No pain in left heel. All her pain is located to 5th metatarsal. Will get xray to evaluate for stress fracture. If pain is present and not improving with inserts, could use pnematic boot which she owns Discussed bunion and hammertoe of right foot. Continue with wider shoe. If pain were present, could consider surgery Will notify her of results Ismael Betancur DPM AMB ROOMING INTAKE FLOWSHEET DATA Risk Screening Do you have concerns about personal safety or safety in the home?: No Pain Pain Level: 5 (8/10 when standing) Pain Location: Foot-Left Description: Aching Duration Amount of Time: 6 Duration Units: Days Frequency: Intermittent Intervention/Comfort measure: Reposition, Relaxation, Distractions Patient presents with: Left Foot - Established Patient, Follow Up, Plantar Fasciitis Left Ankle - Established Patient, Pain Patient presents for plantar fasciitis flare up that began Thursday. Patient states that also 3-4 weeks ago she was at a ball game and after game had Left ankle pain, swelling and bruising to the inner side. States swelling and pain have gone away at this time. documented in this encounter [facility] 03-03-2022 Instructions Silvio Gerard MD - 03/03/2022 1:46 PM EDT Assessment / Plan Assessment: 1) Thyroid microCA, s/p right lobectomy, has 0.8cm nodule in remaining (left) lobe that has not been imaged in 1 year, will have her get this soon. 2) Hypothyroidism after right lobectomy, is on 75 mcg levothyroxine daily, last labs done 1 year ago, will order these now. 3) Fingerstick sugars in 130s fasting, will check HbA1c. 4) Hypercholesterolemia, will check labs. Currently on atorvastatin 20 mg daily. Treatment / Plan: 1) get your blood tests and the thyroid ultrasound done before you go on vacation, at [facility] in [place]. 2) return to me in early March by virtual visit. Silvio Gerard MD documented in this encounter [facility] 03-03-2022 History of Presen t illness Narrative Images from the original note were not included. Virtual Visit utilizing both audio and video components [facility] [phone] Assessment / Plan Assessment: 1) Thyroid microCA, s/p right lobectomy, has 0.8cm nodule in remaining (left) lobe that has not been imaged in 1 year, will have her get this soon. 2) Hypothyroidism after right lobectomy, is on 75 mcg levothyroxine daily, last labs done 1 year ago, will order these now. 3) Fingerstick sugars in 130s fasting, will check HbA1c. 4) Hypercholesterolemia, will check labs. Currently on atorvastatin 20 mg daily. Treatment / Plan: 1) get your blood tests and the thyroid ultrasound done before you go on vacation, at [facility] in [place]. 2) return to me in early March by virtual visit. Silvio Gerard MD Data Data Review: Component Latest Ref Rng & Units 10/22/2017 01/31/2021 Thyroglobulin 1.6 - 59.9 ng/mL 4.3 5.2 TG Antibody Screen <14.4 IU/mL <1.0 <1.0 TSH, [place] 0.400 - 5.500 uIU/mL TSH 0.270 - 4.200 uU/mL 0.306 (L) 0.549 Free T4 0.9 - 1.7 ng/dL 1.8 (H) 1.5 Thyroid ultrasound 01/31/21 Right Lobe: Surgically absent. Left Lobe: 5.4 x 1.4 x 2.0 cm; mildly heterogeneous echotexture, expected vascular flow. Isthmus: 0.2 cm NODULE 1: Location: Left inferior, Size: 0.8 x 0.4 x 0.8 cm, previously 0.5 x 0.3 x 0.7 cm., Interval growth: Significant interval growth (20% increase in at least two nodule dimensions and a minimal increase of 2 mm, or a 50% or greater increase in volume). IMPRESSION: Thyroid nodule(s) present is/are clinically insignificant. No surveillance is advised. MAIN STEWARD MD History Thyroid CA : taking levothyroxine 75 mcg daily, takes in AM when she gets up, around 7:30-8:30AM. takes multivitamin 2 hours after the levothyroxine. Context: 1) restless leg syndrome 2) s/p COVID vaccine x 3, last 03/31/21, all monovalent Thyroid CA History Surgery (01/14/2006): right lobectomy, [facility] [place] [facility] (01/14/2006): don't have copy, but noted by Josué Allen to be 0.3cm, papillary, right lobe Thyroglobulin Component Thyroglobulin TG Antibody Screen Latest Ref Rng & Units 1.6 - 59.9 ng/mL <14.4 IU/mL 07/21/2008 8.2 <8.0 07/28/2009 9.6 0.7 08/17/2010 8.0 <1.0 11/27/2011 6.6 1.2 09/28/2014 6.6 1.2 12/26/2016 4.6 <1.0 10/22/2017 4.3 <1.0 01/31/2021 5.2 <1.0 Vitamin D Component Vitamin D 25 Hydroxy Latest Ref Rng & Units 31.0 - 80.0 ng/mL 07/21/2008 <7.0 (L) 07/28/2009 53.7 08/17/2010 48.3 12/18/2011 53.0 02/05/2013 35.2 09/28/2014 29.4 (L) Ultrasound (01/31/21): nodule in left lobe, 0.8cm max diameter ROS PHYSICAL EXAM There were no vitals taken for this visit. PAST MED / SURG / FAMILY / SOCIAL HISTORY PAST MEDICAL HISTORY Diagnosis Date Abdominal pain, epigastric ACUTE GASTRITIS W/O HEMORRHAGE 05/20/2006 Depressive disorder, not elsewhere classified Diaphragmatic hernia without mention of obstruction or gangrene Diffuse cystic mastopathy 03/08/2009 Hyperopia, right 12/03/2020 Nocturia 08/07/2016 PMH - PAST MEDICAL HISTORY OF thyroid cancer PAST SURGICAL HISTORY Procedure Laterality Date D AND C ESOPHAGOGASTRODUODENOSCOPY TRANSORAL DIAGNOSTIC 05/20/2006 EGD LAPAROSCOPIC GASTRIC BAND PROCEDURE 2010 LASIK PROCEDURE PAST SURGICAL HISTORY OF part of thryoid removed PAST SURGICAL HISTORY OF cyst removed from tongue FAMILY HISTORY Problem Relation Age of Onset Breast Cancer Maternal Aunt Cancer Maternal Grandfather Diabetes Mother Heart Mother other (reflux) Father Social History Tobacco Use Smoking status: Never Smokeless tobacco: Never Vaping Use Vaping Use: Never used Substance Use Topics Alcohol use: No Drug use: No MEDICATIONS & ALLERGIES Current Outpatient Medications Medication Sig Dispense Refill atorvastatin (LIPITOR) 20 mg tablet Take 1 tablet by mouth daily at bedtime. 90 tablet 3 levothyroxine (SYNTHROID) 75 mcg tablet Take 1 tablet by mouth once daily. 90 tablet 3 multivitamin tablet Take 1 tablet by mouth once daily. 0 pantoprazole sodium(PROTONIX 40 MG TAB) Take 40 mg by mouth as needed. 0 No current facility-administered medications for this visit. ALLERGIES Allergen Reactions Clindamycin Diarrhea Simvastatin Intolerance Myalgia Tapes [Other] Other: See Comments Some tape tears skin off Codeine documented in this encounter [facility] 02-25-2022 History of Presen t illness Narrative Sleep Study Check-In Documentation Date: February 25, 2022 Name: Jay Sorensen Comments: HST was returned in working order with all sleep questionnaires Rebecca Keith PSS Pt called and stated she cannot return the equipment on Thursday, said she can use test Thursday, but did not give reason for not able to return sat, she will return on Saturday 02/24 [employer]# [id number] Mail out date: 02/20/2022 [employer] Shipping #: [id number] [employer] Return #: [id number] February 14, 2022 An order has been received for Home Sleep Apnea Test (HSAT) from [facility]. Sleep Center Staff/Nitrocellulose Operator Staff Orders. Visit prep complete - Please refer to the sleep study order (under procedures tab) for protocol details and special instructions. The sleep study is scheduled for 02/20. Insurance: Payor: MEDICARE / Plan: MEDICARE A AND B / Product Type: Medicare / Payer/Plan Subscr Sex Relation Sub. Ins. ID Effective Group Num 1. MEDICARE - ME* JAY SORENSEN 1955 Female Self [id number] 12/16/[address] ANTHEM - ANTH* JAY SORENSEN 1955 Female Self [id number] 12/16/20 [id number] [id number] Makeda Schmidt documented in this encounter [facility] 02-05-2022 Instructions Lisa Pierce MD - 02/05/2022 9:54 AM EDT Restless Legs: Nonmedical therapy for restless legs syndrome includes: cool/warm compresses, warm baths or showers, gentle massage, mild leg stretching at nighttime, or magnesium supplements (500-1000mg at nighttime daily). Mentally alerting activities help too. Note that caffeine, alcohol, chocolate, large amounts of sugar, nicotine, antidepressants, anti-nausea meds and antihistamines can cause or worsen symptoms. Have Bloodwork drawn fasting to check iron levels. Stop and iron supplements 2 days before having blood drawn Medication for Restless Legs or Periodic Limb Movements You may have sleep apnea. For patients with heart disease, this can be obstructive or central sleep apnea, and can affect heart function and heart rhythm. It can also contribute to diabetes, stroke, and headaches. The first step is to schedule a sleep study. To schedule your sleep study please call the [facility] Center at [phone]. The [phone] phone number will be answered by the Lab PSS M-F, 8am-5pm and after 5pm this line will roll to the call center. For home sleep studies, if apnea found, we may be able to set you up on CPAP at home without a night in the laboratory. This is dependant on insurance, and the severity of what is found during the home sleep study. It may take up to 2 weeks after your test for results to be available. We will communicate your results by My Chart.The best way to communicate with our office is My Chart. If you have not already done so; you can sign up for my chart by providing an e-mail address to our office staff. If you do not use My Chart, then we will call you with results. For CPAP/BiPAP Sleep [employer] See links below for masks we typically use NASAL PILLOW SYSTEM [id number]&view=detail&FORM=VIRE NASAL MASK SYSTEM [email or web address]/videos/[email or web address] ch?q=[email or web address]&docid =[email or web address] &view=detail&FORM=VIRE FULL FACE SYSTEM [email or web address]/videos/sear ch?q=[email or web address]+full+face+[email or web address]&do cdt=[id number]&view=detail&FORM=VIRE Bring all equipment with you to follow-up appointments. You will need to be seen between days 31-90 days after PAP set up. Medicare and some other insurances expect use 4 hours nightly. Positional therapy is where you use a device to stay on your side. The devices include a simple wedge pillow, MedClinePillow, Slumber Bump or REM-A-Adan, and can be found on line and at [employer]. There are electronic positional therapy trainers available that track when you are sleeping on your back, and help train you to reposition. These include Night Balance by [employer] and Radio Program Director Positional [place]. Maintenance of normal weight will benefit sleep apnea: A Nutrition consult can be ordered for help in this area. For dental appliance: If you are considering a dental appliance for treatment of mild to moderate sleep apnea, please refer top the list below. Call and schedule an appointment. [facility] Dentistry All new appointments are at [facility]. Follow-ups can be at [facility] or Yorklyn Beny Jamil D.D.SLibrado Examples of a few possible types of dental appliances are listed below Somnomed Janna [email or web address] Somnomed Tomas Somnomed Flex Prosomnus [email or web address] For surgical options Alirio Ibarra MD The best way to communicate with our office is My Chart. If you have not already done so; you can sign up for my chart by providing an e-mail address to our office staff. If you do not use My Chart, then we will call you with results. documented in this encounter [facility] 02-05-2022 History of Presen t illness Narrative Images from the original note were not included. [facility] Sleep Disorders Center New Patient Evaluation Virtual Visit PATIENT NAME: Jay Sorensen DATE OF SERVICE: February 04, 2022 CONSULTING PROVIDER: SELF HPI: Jay Sorensen is a 67 year old female with PMH significant for HLD, hypothyroidism seen for worsening snoring as stated by in last few months . Sleep-related history: She is coming in with complains of feeling tired during the day, loud snoring during sleep, woke up coughing/choking, unrefreshing sleep, multiple awakenings at night, multiple position changes. Sometimes, she has difficulty falling back asleep and can stay up for 60-90 mins. During those episodes, she usually reads or watches TV in lounge until se is sleepy. Snoring has become worse. She doesn't take naps but feels tired and wishes she could take a nap. She has gained 15 lbs in last 1.5 years. She has had sleep study done almost 20 years ago and she was told I think it's worse then it's indicated . Monroe 2, STOPBANG 4. She reports having an urge to move the legs. The urge to move the legs only occurs in the evening or nighttime. The urge to move the legs begins or worsens during periods of rest or inactivity (e.g. lying or sitting). The urge to move the legs is partially or totally relieved by movements such as walking or stretching, at least as long as the activity continues. The urge to move the legs occurs on most nights per week and began several years ago. There is no history of iron deficiency or anemia. She has been told that she has leg kicking during sleep. No iron levels available in [facility]. She has had RLS for several years but it's recently worsened in last few months. She denies any history of parasomnias. She does not report sleep paralysis or sleep-related hallucinations or cataplexy. SLEEP-WAKE SCHEDULE She is a self-described morning person. Bedtime: 10.30-11 PM. She does not have a hard time falling asleep. Wake time: 7.30-8 AM, without an alarm. After falling asleep: she wakes up 3 time(s) per night, because of choking or gasping for air, physical discomfort, and snoring or snorting. SLEEP-RELATED DETAILS Preferred sleep position: side, back, Prone Breathing disturbances and other behaviors during sleep: snoring, moving around a lot, and frequent leg movements. Bruxism: No GERD or aspiration: Yes Waking up with heart pounding or racing: No Anxiety or rumination: No Excessive daytime sleepiness / fatigue is a problem. Excessive Daytime sleepiness/fatigue has been a problem for 1 years. There is no history of a viral illness or significant head injury prior to the start of daytime sleepiness. WAKE-RELATED DETAILS She does not work. She does not have difficulty with memory or concentration. She denies falling asleep or dozing off when driving. She does not take naps. She does drink 3 caffeinated beverages per day. She has gained 15 pounds since 1.5 years. Patient Questionnaires Sleep Scores Sleep Questions 02/05/2022 Reason for visit: Sleep apnea, Difficulty falling or staying asleep or poor sleep quality, Restless Legs Syndrome, Abnormal behaviors/movements during sleep Average hours slept in 24 hours: 6 Accidents or near accidents due to drowsy drivin Monroe Sleepiness Scale 02/05/2022 Score 1 (No daytime sleepiness) PROMIS CAT Sleep Disturbance 02/05/2022 PROMIS Sleep Disturbance T-Score 62 (moderate) Insomnia Severity Index 02/05/2022 Score 14 PHQ-9 02/05/2022 Score 9 PROMIS Global Health - (T-Scores - the mean of general population = 50. Five points is a clinically meaningful difference.) 02/05/2022 Physical T-Score 37.4 Mental T-Score 43.5 Monroe Sleepiness Scale: Sitting and readin Watching TV: 0 Sitting, inactive in a public place (e.g. a theatre or a meeting): 0 As a passenger in a car for an hour without a break: 2 Lying down to rest in the afternoon when circumstances permit: 0 Sitting and talking to someone: 0 Sitting quietly after a lunch without alcohol: 0 In a car, while stopped for a few minutes in the traffic: 0 Total: 2 STOP BANG Questionnaire 1. Snoring Do you snore loudly (louder than talking or loud enough to be heard through closed doors)? YES 2. Tired Do you often feel tired, fatigued, or sleepy during daytime? YES 3. Observed Has anyone observed you stop breathing during your sleep? NO 4. Blood Pressure Do you have or are you being treated for high blood pressure? NO 5. BMI BMI more than 35 kg/m2? YES 6. Age Age over 50 yr old? YES 7. Neck circumference Neck circumference greater than 40 cm? NO 8. Gender Gender male? NO * Neck circumference is measured by staff High risk of NOLAN: answering yes to three or more items Low risk of NOLAN: answering yes to less than three items PAST TREATMENTS: none OTHER RELEVANT LABS AND STUDIES: PAST MEDICAL HISTORY Diagnosis Date Abdominal pain, epigastric ACUTE GASTRITIS W/O HEMORRHAGE 05/20/2006 Depressive disorder, not elsewhere classified Diaphragmatic hernia without mention of obstruction or gangrene Diffuse cystic mastopathy 03/08/2009 Hyperopia, right 12/03/2020 Nocturia 08/07/2016 PMH - PAST MEDICAL HISTORY OF thyroid cancer PAST SURGICAL HISTORY Procedure Laterality Date D AND C ESOPHAGOGASTRODUODENOSCOPY TRANSORAL DIAGNOSTIC 05/20/2006 EGD LAPAROSCOPIC GASTRIC BAND PROCEDURE 2010 LASIK PROCEDURE PAST SURGICAL HISTORY OF part of thryoid removed PAST SURGICAL HISTORY OF cyst removed from tongue ACTIVE PROBLEM LIST Postsurgical Hypothyroidism Thyroid Nodule Hyperlipidemia Obesity Urinary Urgency Restless Leg Syndrome Allergies As of Date: 02/05/2022 Allergen Noted Reaction CLINDAMYCIN 09/25/2009 Diarrhea SIMVASTATIN 12/27/2014 Intolerance TAPES [OTHER] 01/05/2006 Other: See Comments CODEINE 11/04/2005 Fully Assessed 02/05/2022 CURRENT MEDICATIONS: atorvastatin (LIPITOR) 20 mg tablet Take 1 tablet by mouth daily at bedtime. levothyroxine (SYNTHROID) 75 mcg tablet Take 1 tablet by mouth once daily. multivitamin tablet Take 1 tablet by mouth once daily. pantoprazole sodium(PROTONIX 40 MG TAB) Take 40 mg by mouth as needed. SOCIAL HISTORY: Social History Tobacco Use Smoking status: Never Smokeless tobacco: Never Vaping Use Vaping Use: Never used Substance Use Topics Alcohol use: No Drug use: No FAMILY HISTORY: FAMILY HISTORY Problem Relation Age of Onset Breast Cancer Maternal Aunt Cancer Maternal Grandfather Diabetes Mother Heart Mother other (reflux) Father There is no family history of sleep disorders. PHYSICAL EXAMINATION: General appearance: NAD Mental status: Alert and oriented. Able to provide own history Neck: no visible goiter Constitutional: WNL Pulm: Normal work of breathing Skin: No visible rashes on exposed skin Eyes: conjugate, no obvious ptosis ENT : Nose and mouth midline, Cespedes 3, uvula midline Neuro: No focal deficits observed, no tremors IMPRESSION/PLAN: R29.818 Suspected sleep apnea (primary encounter diagnosis) R06.83 Snoring G47.19 Excessive daytime sleepiness G25.81 Restless leg syndrome Z13.0 Screening, iron deficiency anemia R79.0 Low iron stores 67 year old female with previous history of RLS, now presents with worsening snoring, waking up choking/gasping for air, multiple awakenings, frequent movement in bed, leg kicking, EDS, tiredness along with worsening of her RLS symptoms. These findings are concerning for underlying sleep apnea, likely obstructive. - Patient will benefit from Home Sleep Apnea Test (HST) to evaluate for obstructive sleep apnea, given high Stopbang score. - Discussed with the patient the possible diagnosis, causes, and conditions associated with obstructive sleep apnea. - Ordered Iron studies to check ferritin levels and it's association with RLS. - Avoid driving when drowsy. Recommend that if you are dozing off while driving, that you do not drive until your sleepiness is appropriately treated. -Encouraged healthy lifestyle with adequate sleep ( 7-9 hours per night), diet and exercise. - Results are usually available within 7-10 business days. If you do not hear from us within 1-2 weeks after testing, please contact us directly. - Follow up visit in 2-3 weeks after sleep study. Please schedule this appointment now to ensure your preferred time and location. Sonia Sanchez MD Sleep Medicine Fellow Case discussed with Dr. pierce, who agrees with the assessment and plan. Please see her attestation below for further recommendations. I have interviewed the patient and personally reviewed all aspects of the history and physical examination. I confirmed all findings as recorded by the fellow. I participated in the management of the patient and agree with assessment and plan as documented by the fellow. Lisa Pierce MD documented in this encounter [facility] 01-27-2022 Instructions Ismael Betancur - 01/27/2022 8:52 AM EDT Images from the original note were not included. What is Plantar Fasciitis? Plantar fasciitis is the most common cause of heel pain. The pain is caused by inflammation of the plantar fascia. If you strain your plantar fascia, it becomes weak, swollen and irritated (inflamed). The resulting pain may be isolated in the heel or may appear at different points on the bottom of the foot, from time to time; it may occur in one foot or both. Some think that plantar fasciitis pain is caused by irritation of nerves from tissue swelling or inflammation, but it is debatable. Plantar fasciitis is common in middle-aged people; it also occurs in younger people who are on their feet a lot, such as athletes or soldiers. The plantar fascia is a strong band of connective tissue that extends from the base of the toes, along the bottom of the foot, to the bottom of the heel (calcaneous bone); it acts like a bowstring to maintain the arch of the foot. What are heel spurs? The inflammatory reaction of the heel bone may produce spike-like projections of new bone, called heel spurs. The spurs sometimes show on X-rays. They neither cause the initial pain nor do they cause the initial problem. However, later, having to walk on spurs may cause sharp pain. What causes plantar fasciitis? Plantar fasciitis is caused by straining the ligament that supports your arch. Repeated strain can cause tiny tears in the ligament. These lead to pain and swelling. During walking, the plantar fascia experiences tension up to twice the body weight with each step. While this is normal, those who spend much time on their feet, such as nurses, grade checker/waiters, and mail carriers, often experience plantar fasciitis. Athletes involved in tennis or other racquet sports, race walking, jogging or running also show a higher incidence of plantar fasciitis than do those participating in other activities. Thus, it's clear that plantar fasciitis is predominantly an overuse injury. In fact, any activity that results in prolonged tension and stress on the plantar fascia may cause plantar fasciitis. It is possible that changes in footwear may play a role in causing plantar fasciitis, no matter what activity is occurring. Those who are overweight are prone to plantar fasciitis. This is true even for sedentary people who get little physical activity. Abnormalities of the foot and ankle joints may predispose some individuals to development of plantar fasciitis (specifically, over pronation of the subtalar joint). Contributing Factors * Flat feet * Toe running, hill running * Sudden weight increase * High-arched, rigid feet * Soft terrain, e.g. running on sand * Obesity * Pronated feet (rolled inward) * Sudden increase in activity * Family tendency * Poor shoe support * Worn out or poorly fitted shoes * Increasing age * Walking, standing or running for long periods of time, especially on hard surfaces. How is the Injury Treated? Rest Your Feet: Limit, or if possible, stop activities that are causing your heel pain. Try to avoid running or walking on hard surfaces, such as concrete. Use pain as your guide. If your foot is too painful, rest it. Ice: Ice the sore area for 30 to 60 minutes, several times a day, to reduce inflammation and relieve pain. Apply a plastic bag of crushed ice (or a bag of frozen peas) over a towel. Ice the sore area for 15 minutes after activity/exercise. Application of heat is not generally recommended, as heat expands the bone and connective tissue, perhaps exerting greater pressure on nerves and thereby increasing pain. If heat is used, follow it with ice. Medication: If your condition developed recently, anti-inflammatory/analgesic medication, combined with heel pads (see below) may be all that is necessary to relieve pain and to reduce inflammation. If no pain relief has occurred after 2-3 weeks, however, your doctor may inject either cortisone or local anesthetic directly into the tender area. Exercises: Do simple exercises, such as calf stretches and towel stretches (see below) several times a day, especially when you first get up in the morning. These can help your ligament become more flexible and strengthen the muscles that support your arch. Shoes: Poorly fitting shoes can cause plantar fasciitis. The best type of shoe to wear is a good walking or running shoe with good shock absorption and excellent arch support. You should choose the one that fits the best. [place] with your athletic shoes to find a pair that is comfortable and causes fewer symptoms. Put your shoes on as soon as you get out of bed; going barefoot or wearing slippers may make your pain worse. Good brands include (but are not limited to): New Balance, Asics, Saucony, SAS and Merrel s. Taping: Your doctor may tape your foot to maintain the arch. This takes some of the tension off the plantar fascia. Weight Loss: If your weight is putting extra stress on your feet, your doctor may encourage you to try a weight-loss program. Orthotics: An orthotic insole is a molded piece of rubber, plastic, or other material that you insert into your shoe. It corrects the alignment of your foot and cushions your foot from excessive pounding. These may be prescription or non-prescription. Prescription orthotics are custom-fitted and may fit better and control pain better, but are very expensive. Night Splints: A night splint holds the foot with the toes pointed up and the ankle at a 90-degree angle. This position applies a constant, gentle stretch to the plantar fascia. Corticosteroid Shots: Steroids may be injected into the tender area to reduce inflammation. REHAB Exercises to stretch the plantar fascia, the calf muscles, and the Achilles tendon. Tightness of the muscles of the calves may contribute to plantar fasciitis, so stretching the calf muscles is important to rehabilitation, as is stretching of the plantar fascia itself. Plantar fascial stretches Assisted Dorsiflexion/Plantar Fascia Stretch: Sit on the floor or ground, barefoot, with both legs outstretched. Use a towel or elastic band and wrap it around the ball (and not the toes) of the affected foot. Use the towel or elastic band to provide resistance to upward movement of the forefoot. Pull foot upward (toward your body) with the help of the elastic band or towel, and then return to the starting position. Ten repetitions are recommended. Perform the sequence at least three times a day. Alternate Plantar Fascia Stretch: Sit upright in a chair, barefoot. Place the ankle of the affected foot on your opposite knee. Using the same hand as the affected foot, reach across and grab the toes. Flex the ankle toward and pull the toes toward the lambert. To test the stretch, place the thumb of your hand on the bottom of the foot. You should be able to feel the cord-like plantar fascia, running the length of the foot. Hold the stretch for a count of 10, then relax. Repeat 10 times. Do the sequence at least three times a day. Achilles/Calf Stretches Strengthening the muscles of the calves may contribute to successful rehabilitation of plantar fasciitis, as well as prevent reoccurrence. The exercises below will help strengthen the calf muscles. Calf and Achilles Tendon Stretch (Gastrocnemius Stretch): Face a wall, standing an arm's length away. Place one foot back. Place both hands on the wall. Bend the elbows and knee of your forward leg, keeping the heel of the backward foot on the floor and keeping your body straight (aligned), until your forehead nearly touches the wall, or until significant stretch is felt in the muscles of the calf of the backward leg. Hold this position for 10 to 15 seconds. Extend elbows (straighten your arms and stand upright again) and maintain this position for 10 seconds. Repeat this cycle 15 to 20 times. Switch legs and repeat the exercise. documented in this encounter [facility] 01-27-2022 History of Presen t illness Narrative Consultation requested by Dr. Jaquez for an opinion regarding left foot pain. My final recommendations will be communicated back to the requesting physician by way of shared Medical record or letter to requesting physician via US mail. Initial Podiatric Office Visit: Chief Complaint: This 67 year old female who presents with chief complaint:left foot pain HPI Patient presents to clinic for evaluation of her left foot Patient states that a few weeks ago, she developed pain to the lateral aspect of left foot and medial aspect of left heel. Patient states that a few weeks ago, the pain was severe but now, the pain has improved. She states the pain has improved because she resumed motrin (she had to discontinue for recent plastic procedure). She is also stretching her feet and wearing good sneakers. PAIN EVALUATION No data found in the last 1 encounters. Hemoglobin A1C (%) Date Value 01/31/2021 5.6 PCP: Jennifer Jaquez MD PAST MEDICAL HISTORY Diagnosis Date Abdominal pain, epigastric ACUTE GASTRITIS W/O HEMORRHAGE 05/20/2006 Depressive disorder, not elsewhere classified Diaphragmatic hernia without mention of obstruction or gangrene Diffuse cystic mastopathy 03/08/2009 Hyperopia, right 12/03/2020 Nocturia 08/07/2016 PMH - PAST MEDICAL HISTORY OF thyroid cancer Current Outpatient Medications Medication Sig atorvastatin (LIPITOR) 20 mg tablet Take 1 tablet by mouth daily at bedtime. levothyroxine (SYNTHROID) 75 mcg tablet Take 1 tablet by mouth once daily. multivitamin tablet Take 1 tablet by mouth once daily. pantoprazole sodium(PROTONIX 40 MG TAB) Take 40 mg by mouth as needed. No current facility-administered medications for this visit. ALLERGIES Allergen Reactions Clindamycin Diarrhea Codeine Simvastatin Intolerance Myalgia Tapes [Other] Some tape tears skin off PAST SURGICAL HISTORY Procedure Laterality Date D AND C ESOPHAGOGASTRODUODENOSCOPY TRANSORAL DIAGNOSTIC 05/20/2006 EGD LAPAROSCOPIC GASTRIC BAND PROCEDURE 2011 LASIK PROCEDURE PAST SURGICAL HISTORY OF part of thryoid removed PAST SURGICAL HISTORY OF cyst removed from tongue FAMILY HISTORY Problem Relation Age of Onset Breast Cancer Maternal Aunt Cancer Maternal Grandfather Diabetes Mother Heart Mother other (reflux) Father Social History Tobacco Use Smoking status: Never Smokeless tobacco: Never Vaping Use Vaping Use: Never used Substance Use Topics Alcohol use: No Drug use: No REVIEW OF SYSTEMS GENERAL: Negative for Malaise, significant weight loss, fever RESPIRATORY: Negative for cough, wheezing and shortness of breath CARDIOVASCULAR: Negative for chest pain, leg swelling and palpitations GI: Negative for abdominal discomfort, blood in stools or black stools and change in bowel habits : Negative for dysuria, frequency and incontinence MUSCULOSKELETAL: Negative for joint pain or swelling, back pain, and muscle pain. SKIN: Negative for lesions, rash, and itching. HEMATOLOGY/LYMPHOLOGY Negative for prolonged bleeding, bruising easily, and swollen nodes. ENDOCRINE: Negative for cold or heat intolerance, polyuria, polydipsia and goiter. NEURO: negative Physical Exam: Constitutional: Pt is a well developed 67 year old female who is alert, oriented and cooperative Eyes: Following during examination. No redness or drainage. Respiratory: RR normal and nonlabored. Even breathing. No evidence of distress or shortness of breath. Psychology: Patient is engaged during conversation. Normal affect and mood. Does not appear depressed or anxious during encounter. Vascular: Dorsalis pedis and posterior tibial pulses palpable as b/l Capillary Fill time < 5 seconds to digits 1-5 b/l Skin temperature warm to warm proximal to distal b/l Hair growth present to digits Neurological: intact light touch/epicritic sensation - tinel b/l intact protective sensation no significant neurological deficits Dermatological: Nails 1-5 b/l appear normal. Webspaces clean and dry 1-4 b/l. Skin appears well hydrated and supple. good color, texture, turgor. No open lesions present. No callosities present. Musculoskeletal/Orthopaedic: Patient has no pain to palpation of b/l feet Foot type is pronated structurally AJ ROM is full with knee extended and flexed 1st MPJ is full when loaded and no pain or crepitus are noted with ROM. MTJ, STJ are full and free of pain and crepitus. +5/5 muscle strength dorsiflexion, plantarflexion, inversion, eversion b/l Radiographs: 3 views left foot ordered January 27, 2022: I have personally reviewed and interpreted these XR myself: no acute findings. Plantar heel spur present ASSESSMENT: (M72.2) Plantar fasciitis (primary encounter diagnosis) PLAN: 1. Initial Office Visit - A thorough review of the patient's PMH and Podiatric physical exam was completed. 2. Patient advised to perform stretching excercises, icing, and to make appropriate shoe gear changes to include wearing athletic-type shoes with supportive insoles. No barefoot walking. Patient also given written instructions on how to correctly perform the stretching of the achilles tendon/calf stretches, and the heel spur/plantar fasciitis regimen. 3. Patient advised to seek wide, deep toe box, accomodative, comfortable, lace-up, athletic/walking type footwear that includes motion control characteristics for support and cushion that need to be worn at all times when weight-bearing. Shoes should be tested for torsional stability as well as proper bending at the toebox rather than at the midfoot. Good quality shoes such as, but not limited to, New Balance or Asics are examples of more proper foot gear. 4. Patient recommended to get custom insoles for proper support of the arch in order to alleviate the tension and stress on the plantar fascia associated with normal daily walking. Patient advised that these modalities used in conjunction with stretching and icing are able to alleviate most symptoms from this condition. 5. Rtc prn. If pain were to return, consider injection. Ismael Betancur DPM Podiatry [address] [facility] [id number] Dept: [phone] Dept Patient presents with: Left Foot - New, Pain Patient presents for left foot pain to outer side and inner side. Patient states that about 10 days ago she was kerry and standing on hard floors in crocs for an extended period of time. States that at the time she was unable to take Motrin. Started taking Motrin a few days ago, and today no pain. Amber Ray RN documented in this encounter [facility] 01-27-2022 History of Presen t illness Narrative Radiology Service Progress Note PATIENT NAME: Jay Sorensen DATE OF SERVICE: January 27, 2022 TIME: 8:18 AM PATIENT IDENTITY VERIFICATION COMPLETED USING TWO (2) IDENTIFIERS: Name and Date of confirmed by patient verbally. FALL SCREENING: Has the patient had 2 falls in the last year or 1 fall with injury or currently using an Ambulatory Assistive Device (Walker, Cane, Wheelchair, Crutches, etc.)? No PATIENT GENDER DATA: Female. status: : No status: NO. PATIENT RELEVANT IMPLANT DATA REVIEWED: Not Applicable RADIOLOGY DEPARTMENT: General X-ray: Exam(s) Completed: Lower Extremity X-Ray(s): Foot, Left and Wt. Bearing PERIPHERAL IV DATA: Not applicable SIGNED BY: RT Miguel(R) January 27, 2022 8:18 AM documented in this encounter [facility] documented as of this encounter (statuses as of 01/27/2022) [facility] History of Past illness Narrative* Problem Noted Date Resolved Date Hyperopia, right 12/03/2020 01/11/2021 Urinary frequency 08/07/2016 12/29/2016 Nocturia 08/07/2016 12/11/2016 Diffuse cystic mastopathy 03/08/20092020 Nontoxic uninodular goiter 11/14/200505/21 documented as of this encounter (statuses as of 01/28/2022) [facility] History of Past illness Narrative* Problem Noted Date Resolved Date Hyperopia, right 12/03/2020 01/11/2021 Urinary frequency 08/07/2016 12/29/2016 Nocturia 08/07/2016 12/11/2016 Diffuse cystic mastopathy 03/08/20092020 Nontoxic uninodular goiter 11/14/200505/21 documented as of this encounter (statuses as of 02/05/2022) [address]19-2021 History of Past illness Narrative* Problem Noted Date Resolved Date Hyperopia, right 12/03/2020 01/11/2021 Urinary frequency 08/07/2016 12/29/2016 Nocturia 08/07/2016 12/11/2016 Diffuse cystic mastopathy 03/08/20092020 Nontoxic uninodular goiter 11/14/200505/21 documented as of this encounter (statuses as of 02/25/2022) [facility] History of Past illness Narrative* Problem Noted Date Resolved Date Hyperopia, right 12/03/2020 01/11/2021 Urinary frequency 08/07/2016 12/29/2016 Nocturia 08/07/2016 12/11/2016 Diffuse cystic mastopathy 03/08/20092020 Nontoxic uninodular goiter 11/14/200505/21 documented as of this encounter (statuses as of 03/03/2022) [facility] History of Past illness Narrative* Problem Noted Date Resolved Date Hyperopia, right 12/03/2020 01/11/2021 Urinary frequency 08/07/2016 12/29/2016 Nocturia 08/07/2016 12/11/2016 Diffuse cystic mastopathy 03/08/20092020 Nontoxic uninodular goiter 11/14/200505/21 documented as of this encounter (statuses as of 03/13/2022) [facility] History of Past illness Narrative* Problem Noted Date Resolved Date Hyperopia, right 12/03/2020 01/11/2021 Urinary frequency 08/07/2016 12/29/2016 Nocturia 08/07/2016 12/11/2016 Diffuse cystic mastopathy 03/08/20092020 Nontoxic uninodular goiter 11/14/200505/21 documented as of this encounter (statuses as of 03/20/2022) [facility] History of Past illness Narrative* Problem Noted Date Resolved Date Hyperopia, right 12/03/2020 01/11/2021 Urinary frequency 08/07/2016 12/29/2016 Nocturia 08/07/2016 12/11/2016 Diffuse cystic mastopathy 03/08/20092020 Nontoxic uninodular goiter 11/14/200505/21 documented as of this encounter (statuses as of 03/24/2022) [facility] History of Past illness Narrative* Problem Noted Date Resolved Date Hyperopia, right 12/03/2020 01/11/2021 Urinary frequency 08/07/2016 12/29/2016 Nocturia 08/07/2016 12/11/2016 Diffuse cystic mastopathy 03/08/20092020 Nontoxic uninodular goiter 11/14/200505/21 documented as of this encounter (statuses as of 05/01/2022) [facility] History of Past illness Narrative* Problem Noted Date Resolved Date Hyperopia, right 12/03/2020 01/11/2021 Urinary frequency 08/07/2016 12/29/2016 Nocturia 08/07/2016 12/11/2016 Diffuse cystic mastopathy 03/08/20092020 Nontoxic uninodular goiter 11/14/200505/21 documented as of this encounter (statuses as of 05/28/2022) [facility] History of Past illness Narrative* Problem Noted Date Resolved Date Hyperopia, right 12/03/2020 01/11/2021 Urinary frequency 08/07/2016 12/29/2016 Nocturia 08/07/2016 12/11/2016 Diffuse cystic mastopathy 03/08/20092020 Nontoxic uninodular goiter 11/14/200505/21 documented as of this encounter (statuses as of 05/28/2022) [address]19-2021 History of Past illness Narrative* Problem Noted Date Resolved Date Hyperopia, right 12/03/2020 01/11/2021 Urinary frequency 08/07/2016 12/29/2016 Nocturia 08/07/2016 12/11/2016 Diffuse cystic mastopathy 03/08/20092020 Nontoxic uninodular goiter 11/14/200505/21 documented as of this encounter (statuses as of 05/29/2022) [address]19-2021 History of Past illness Narrative* Problem Noted Date Resolved Date Hyperopia, right 12/03/2020 01/11/2021 Urinary frequency 08/07/2016 12/29/2016 Nocturia 08/07/2016 12/11/2016 Diffuse cystic mastopathy 03/08/20092020 Nontoxic uninodular goiter 11/14/200505/21 documented as of this encounter (statuses as of 05/29/2022) [address]19-2021 History of Past illness Narrative* Problem Noted Date Resolved Date Hyperopia, right 12/03/2020 01/11/2021 Urinary frequency 08/07/2016 12/29/2016 Nocturia 08/07/2016 12/11/2016 Diffuse cystic mastopathy 03/08/20092020 Nontoxic uninodular goiter 11/14/200505/21 documented as of this encounter (statuses as of 06/06/2022) [address]19-2021 History of Past illness Narrative* Problem Noted Date Resolved Date Hyperopia, right 12/03/2020 01/11/2021 Urinary frequency 08/07/2016 12/29/2016 Nocturia 08/07/2016 12/11/2016 Diffuse cystic mastopathy 03/08/20092020 Nontoxic uninodular goiter 11/14/200505/21 documented as of this encounter (statuses as of 06/25/2022) [address]19-2021 History of Past illness Narrative* Problem Noted Date Resolved Date Hyperopia, right 12/03/2020 01/11/2021 Urinary frequency 08/07/2016 12/29/2016 Nocturia 08/07/2016 12/11/2016 Diffuse cystic mastopathy 03/08/20092020 Nontoxic uninodular goiter 11/14/200505/21 documented as of this encounter (statuses as of 07/20/2022) [address]19-2021 History of Past illness Narrative* Problem Noted Date Resolved Date Hyperopia, right 12/03/2020 01/11/2021 Urinary frequency 08/07/2016 12/29/2016 Nocturia 08/07/2016 12/11/2016 Diffuse cystic mastopathy 03/08/20092020 Nontoxic uninodular goiter 11/14/200505/21 documented as of this encounter (statuses as of 07/29/2022) [address]19-2021 History of Past illness Narrative* Problem Noted Date Resolved Date Hyperopia, right 12/03/2020 01/11/2021 Urinary frequency 08/07/2016 12/29/2016 Nocturia 08/07/2016 12/11/2016 Diffuse cystic mastopathy 03/08/20092020 Nontoxic uninodular goiter 11/14/200505/21 documented as of this encounter (statuses as of 08/06/2022) [address]19-2021 History of Past illness Narrative* Problem Noted Date Resolved Date Hyperopia, right 12/03/2020 01/11/2021 Urinary frequency 08/07/2016 12/29/2016 Nocturia 08/07/2016 12/11/2016 Diffuse cystic mastopathy 03/08/20092020 Nontoxic uninodular goiter 11/14/200505/21 documented as of this encounter (statuses as of 09/08/2022) [address]19-2021 History of Past illness Narrative* Problem Noted Date Resolved Date Hyperopia, right 12/03/2020 01/11/2021 Urinary frequency 08/07/2016 12/29/2016 Nocturia 08/07/2016 12/11/2016 Diffuse cystic mastopathy 03/08/20092020 Nontoxic uninodular goiter 11/14/200505/21 documented as of this encounter (statuses as of 11/04/2022) [address]19-2021 History of Past illness Narrative* Problem Noted Date Diagnosed Date Resolved Date Hyperopia, right 12/03/2020 01/11/2021 Urinary frequency 08/07/2016 12/29/2016 Nocturia 08/07/2016 12/11/2016 Diffuse cystic mastopathy 03/08/2009 Nontoxic uninodular goiter 11/14/2005 0 05/21/2006 documented as of this encounter (statuses as of 12/30/2022) [place] [address]19-2021 History of Past illness Narrative* Problem Noted Date Diagnosed Date Resolved Date Hyperopia, right 12/03/2020 01/11/2021 Urinary frequency 08/07/2016 12/29/2016 Nocturia 08/07/2016 12/11/2016 Diffuse cystic mastopathy 03/08/2009 Nontoxic uninodular goiter 11/14/2005 0 05/21/2006 documented as of this encounter (statuses as of 01/21/2023) [facility] History of Past illness Narrative* Problem Noted Date Diagnosed Date Resolved Date Hyperopia, right 12/03/2020 01/11/2021 Urinary frequency 08/07/2016 12/29/2016 Nocturia 08/07/2016 12/11/2016 Diffuse cystic mastopathy 03/08/2009 Nontoxic uninodular goiter 11/14/2005 0 05/21/2006 documented as of this encounter (statuses as of 01/29/2023) [facility] History of Past illness Narrative* Problem Noted Date Diagnosed Date Resolved Date Hyperopia, right 12/03/2020 01/11/2021 Urinary frequency 08/07/2016 12/29/2016 Nocturia 08/07/2016 12/11/2016 Diffuse cystic mastopathy 03/08/2009 Nontoxic uninodular goiter 11/14/2005 0 05/21/2006 documented as of this encounter (statuses as of 01/30/2023) [facility] History of Past illness Narrative* Problem Noted Date Diagnosed Date Resolved Date Hyperopia, right 12/03/2020 01/11/2021 Urinary frequency 08/07/2016 12/29/2016 Nocturia 08/07/2016 12/11/2016 Diffuse cystic mastopathy 03/08/2009 Nontoxic uninodular goiter 11/14/2005 0 05/21/2006 documented as of this encounter (statuses as of 02/03/2023) [facility] History of Past illness Narrative* Problem Noted Date Diagnosed Date Resolved Date Hyperopia, right 12/03/2020 01/11/2021 Urinary frequency 08/07/2016 12/29/2016 Nocturia 08/07/2016 12/11/2016 Diffuse cystic mastopathy 03/08/2009 Nontoxic uninodular goiter 11/14/2005 0 05/21/2006 documented as of this encounter (statuses as of 02/13/2023) [facility] History of Past illness Narrative* Problem Noted Date Diagnosed Date Resolved Date Hyperopia, right 12/03/2020 01/11/2021 Urinary frequency 08/07/2016 12/29/2016 Nocturia 08/07/2016 12/11/2016 Diffuse cystic mastopathy 03/08/2009 Nontoxic uninodular goiter 11/14/2005 0 05/21/2006 documented as of this encounter (statuses as of 04/16/2023) [place] [address]19-[address]21 History of Past illness Narrative* Problem Noted Date Diagnosed Date Resolved Date Hyperopia, right 12/03/2020 01/11/2021 Urinary frequency 08/07/2016 12/29/2016 Nocturia 08/07/2016 12/11/2016 Diffuse cystic mastopathy 03/08/2009 Nontoxic uninodular goiter 11/14/2005 0 05/21/2006 documented as of this encounter (statuses as of 04/27/2023) [address]19-2021 History of Past illness Narrative* Problem Noted Date Diagnosed Date Resolved Date Hyperopia, right 12/03/2020 01/11/2021 Urinary frequency 08/07/2016 12/29/2016 Nocturia 08/07/2016 12/11/2016 Diffuse cystic mastopathy 03/08/2009 Nontoxic uninodular goiter 11/14/2005 0 05/21/2006 documented as of this encounter (statuses as of 06/25/2023) [place] [address]19-[address]21 History of Past illness Narrative* Problem Noted Date Diagnosed Date Resolved Date Hyperopia, right 12/03/2020 01/11/2021 Urinary frequency 08/07/2016 12/29/2016 Nocturia 08/07/2016 12/11/2016 Diffuse cystic mastopathy 03/08/2009 Nontoxic uninodular goiter 11/14/2005 0 05/21/2006 documented as of this encounter (statuses as of 06/30/2023) [facility] History of Past illness Narrative* Problem Noted Date Diagnosed Date Resolved Date Hyperopia, right 12/03/2020 01/11/2021 Urinary frequency 08/07/2016 12/29/2016 Nocturia 08/07/2016 12/11/2016 Diffuse cystic mastopathy 03/08/2009 Nontoxic uninodular goiter 11/14/2005 0 05/21/2006 documented as of this encounter (statuses as of 07/08/2023) [facility] note* Diagnosis Plantar fasciitis- Primary Plantar fascial fibromatosis [facility] Diagnosis Pain in left foot Pain in limb [facility] Diagnosis Suspected sleep apnea- Primary Snoring Other dyspnea and respiratory abnormality Excessive daytime sleepiness Restless leg syndrome Restless legs syndrome (RLS) Screening, iron deficiency anemia Screening for iron deficiency anemia Low iron stores Other abnormal blood chemistry [facility] Diagnosis Impaired fasting glucose- Primary Postsurgical hypothyroidism Encounter for follow-up surveillance of thyroid cancer Unspecified follow-up examination Thyroid cancer (HCC) Malignant neoplasm of thyroid gland Pure hypercholesterolemia [facility] Diagnosis Thyroid cancer (HCC) Malignant neoplasm of thyroid gland [facility] Pain in left foot- Primary Pain in limb Hallux valgus of left foot Hammer toe of left foot Plantar fasciitis Plantar fascial fibromatosis [facility] Diagnosis Postsurgical hypothyroidism- Primary Thyroid nodule Nontoxic uninodular goiter Prediabetes Other abnormal glucose documented in this [facility] Diagnosis Plantar fascial fibromatosis documented in this [facility] Diagnosis NOLAN (obstructive sleep apnea)- Primary Obstructive sleep apnea (adult) (pediatric) Excessive daytime sleepiness Chronic insomnia Insomnia, unspecified RLS (restless legs syndrome) Restless legs syndrome (RLS) documented in this encounter [facility] Diagnosis Plantar fascial fibromatosis- Primary documented in this [facility] Diagnosis Prediabetes- Primary Other abnormal glucose documented in this [facility] Diagnosis Prediabetes- Primary Other abnormal glucose Hypercholesterolemia Pure hypercholesterolemia documented in this encounter [facility] note* Diagnosis Thyroid nodule- Primary Nontoxic uninodular goiter documented in this encounter [facility] note* Diagnosis Prediabetes- Primary Other abnormal glucose Pure hypercholesterolemia documented in this encounter [facility] note* Diagnosis NOLAN on CPAP- Primary Obstructive sleep apnea (adult) (pediatric) Frequent nocturnal awakening Other sleep disturbances documented in this encounter [facility] note* Diagnosis Pure hypercholesterolemia- Primary Other specified disorders of carbohydrate metabolism (HCC) documented in this encounter [facility] note* Diagnosis Pure hypercholesterolemia- Primary Prediabetes Other abnormal glucose Postsurgical hypothyroidism documented in this encounter [facility] note* Diagnosis Foot pain, right- Primary Pain in limb documented in this encounter [facility] note* Diagnosis Carotid atherosclerosis, unspecified laterality- Primary documented in this encounter [facility] note* Diagnosis Localized edema Edema documented in this encounter [facility] note* Diagnosis Cataract, nuclear sclerotic, both eyes- Primary Senile nuclear sclerosis Prediabetes Other abnormal glucose Hx of LASIK Other states following surgery of eye and adnexa Dermatochalasis of both upper eyelids Regular astigmatism, bilateral Hyperopia, bilateral Presbyopia documented in this encounter [facility] note* Diagnosis Posterior vitreous detachment of left eye- Primary Vitreous degeneration documented in this encounter [facility] note* Diagnosis Mixed hyperlipidemia- Primary documented in this encounter [facility] for referral (narrative)* Diagnostic Procedure Only (Routine) - Closed Specialty Diagnoses / Procedures Referred By Enzo harrison Referred To Contact XR IMAGING Diagnoses Pain in left foot Procedures XR FOOT GENERAL 3V AP/LAT/OBL LEFT RADEX FOOT COMPLETE MINIMUM 3 VIEWS Ismael Betancur [address] [place] [address] Xr Imaging Referral ID Status Reason Start Date Expiration Date V isits Requested Visits Authorized [id number] Closed Auto-Generate d Referral 01/24/2022 02/23/2023 1 1 [facility] for referral (narrative)* Diagnostic Procedure Only (Routine) - Pending Review Specialty Diagnoses / Procedures Referred By Enzo harrison Referred To Contact [facility] Diagnoses Suspected sleep apnea Snoring Excessive daytime sleepiness Procedures HOME SLEEP APNEA TEST (HSAT) SLEEP STD AIRFLOW HRT RATE&O2 SAT EFFORT UNATT Lisa Pierce MD [address] [place] [address] [facility] [address] [place] [address] Referral ID Status Reason Start Date Expiration Date Visits Requested Visits Authorized [id number] Pending Review Auto-Generat ed Referral 02/05/2022 02/05/2023 1 1 T [facility] for referral (narrative)* Diagnostic Procedure Only (Routine) - Pending Review Specialty Diagnoses / Procedures Referred By Contac t Referred To Contact US IMAGING Diagnoses Thyroid cancer (HCC) Procedures US THYROID/PARATHYROID US SOFT TISSUE HEAD & NECK REAL [place] Silvio Fontenot [place] [id number] [place] [address] Us Imaging Referral ID Status Reason Start Date Expiration Date Visits Requested Visits Authorized [id number] Pending Review Auto-Generat ed Referral 04/02/2023 1 1 [facility] for referral (narrative)* Diagnostic Procedure Only (Routine) - Closed Specialty Diagnoses / Procedures Referred By Contac t Referred To Contact US IMAGING Diagnoses Thyroid cancer (HCC) Procedures US THYROID/PARATHYROID US SOFT TISSUE HEAD & NECK REAL TIME [place]GE Silvio Fontenot [place] [id number] [place] [address] Us Imaging Referral ID Status Reason Start Date Expiration Date V isits Requested Visits Authorized [id number] Closed Auto-Generate d Referral 03/03/2022 04/02/2023 1 1 T [facility] for referral (narrative)* Diagnostic Procedure Only (Routine) - Pending Review Specialty Diagnoses / Procedures Referred By Contac t Referred To Contact XR IMAGING Diagnoses Pain in left foot Procedures XR FOOT GENERAL 3V AP/LAT/OBL LEFT RADEX FOOT COMPLETE MINIMUM 3 VIEWS Ismael Betancur [address] [place] [address] Xr Imaging Referral ID Status Reason Start Date Expiration Date Visits Requested Visits Authorized [id number] Pending Review Auto-Generat ed Referral 03/20/2022 04/19/2023 1 1 [facility] for referral (narrative)* Outpatient Procedure (Routine) - Authorized Specialty Diagnoses / Procedures Referred By Contac t Referred To Contact [facility] Diagnoses Carotid atherosclerosis, unspecified laterality Procedures ECG COMPLETE ECG ROUTINE ECG W/LEAST 12 LDS W/I&R Maria Isabel Cheney MD [address] [facility] [address] [place] [address] [facility] [place] [address] [place] [address] Referral ID Status Reason Start Date Expiration Date Visits Requested Visits Authorized [id number] Authorized Auto-Generat ed Referral 01/30/2023 01/30/2024 1 1 T [facility] for visit Narrative* Diagnostic Procedure Only (Routine) - Closed Specialty Diagnoses / Procedures Referred By Contac t Referred To Contact XR IMAGING Diagnoses Pain in left foot Procedures XR FOOT GENERAL 3V AP/LAT/OBL LEFT RADEX FOOT COMPLETE MINIMUM 3 VIEWS Ismael Betancur [address] [place] [address] Xr Imaging Referral ID Status Reason Start Date Expiration Date V isits Requested Visits Authorized [id number] Closed Auto-Generate d Referral 01/24/2022 02/23/2023 1 1 [facility] for visit Narrative* Diagnostic Procedure Only (Routine) - Closed Specialty Diagnoses / Procedures Referred By Contac t Referred To Contact US IMAGING Diagnoses Thyroid cancer (HCC) Procedures US THYROID/PARATHYROID US SOFT TISSUE HEAD & [place] [address] [facility] [address] [place] [address] Us Imaging Referral ID Status Reason Start Date Expiration Date V isits Requested Visits Authorized [id number] Closed Auto-Generate d Referral 03/03/2022 04/02/2023 1 1 [facility] Summary Purpose Family History No Family History Records FoundNo Family History Records FoundNo Family History Records FoundNo Family History Records FoundNo Family History Records FoundNo Family History Records FoundNo Family History Records FoundNo Family History Records FoundNo Family History Records Found Advance Directives No Advanced Directives Records FoundNo Advanced Directives Records FoundNo Advanced Directives Records FoundNo Advanced Directives Records FoundNo Advanced Directives Records FoundNo Advanced Directives Records FoundNo Advanced Directives Records FoundNo Advanced Directives Records FoundNo Advanced Directives Records Found Reason for Referral Specialty Diagnoses / Procedures Referred By Contac t Referred To Contact Podiatry Diagnoses Foot pain, right Procedures CONSULT TO PODIATRY OFFICE/OUTPATIENT [facility] 60-74 MINUTES Amy Starr, V BELT INSPECTOR.PHOTORADIO 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[place] [address] Referral ID Status Reason Start Date Expiration Date Visits Requested Visits Authorized [id number] Authorized PCP Requested Referral 01/21/2023 01/21/2024 1 1 Specialty Diagnoses / Procedures Referred By Contac t Referred To Contact XR IMAGING Diagnoses Foot pain, right Procedures XR FOOT GENERAL 3V AP/LAT/OBL RIGHT RADEX FOOT COMPLETE MINIMUM 3 VIEWS Amy Starr, V BELT INSPECTOR.PHOTORADIO 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[place] [address] [place] [id number] Referral ID Status Reason Start Date Expiration Date V isits Requested Visits Authorized [id number] Closed Auto-Generate d Referral 01/21/2023 02/20/2024 1 1 Specialty Diagnoses / Procedures Referred By Contac t Referred To Contact Diagnoses Localized edema Procedures Vascular US duplex lower extremity venous right Britney Tran DO [address] [place] [address] [facility] [place] Referral ID Status Reason Start Date Expiration Date V isits Requested Visits Authorized [id number] Authorized 03/04/2023 1 1 Medications Administered Section Active Administered Medications - up to 3 most recent administrations Medication Order MAR Action Action Date Dose Rate Site PHENYLephrine 2.5 % 1 Drop (AK-DILATE, SANDRA-SYNEPHRINE) 1 Drop, BOTH EYES, DIRECTED, Starting on Thu04/15/23 at 1430, Until Magdalene 04/16/23 at 0229, Administer for dilation PROTECT FROM LIGHT Given 04/15/2023 2:30 PM EST 1 Drop tropicamide 1 % 1 Drop (MYDRIACYL) 1 Drop, BOTH EYES, DIRECTED, Starting on Thu04/15/23 at 1430, Until Magdalene 04/16/23 at 0229, Administer for dilation Given 04/15/2023 2:30 PM EST 1 Drop Active Administered Medications - up to 3 most recent administrations Medication Order MAR Action Action Date Dose Rate Site fluorescein-benoxinate 0.3-0.4 % 1 Drop (FLURESS) 1 Drop, BOTH EYES, DIRECTED, Starting on Thu04/27/23 at 1230, Until Thu04/28/23 at 0029, Administer for applanation tonometry. In the event of a Fluress shortage, administer Lisa-Fluor 1 drop into both eyes as directed for applanation tonometry Given 04/27/2023 12:30 PM EST 1 Drop PHENYLephrine 2.5 % 1 Drop (AK-DILATE, SANDRA-SYNEPHRINE) 1 Drop, BOTH EYES, DIRECTED, Starting on Thu04/27/23 at 1230, Until Tu04/28/23 at 0029, Administer for dilation PROTECT FROM LIGHT Given 04/27/2023 12:30 PM EST 1 Drop tropicamide 1 % 1 Drop (MYDRIACYL) 1 Drop, BOTH EYES, DIRECTED, Starting on Thu04/27/23 at 1230, Until Thu04/28/23 at 0029, Administer for dilation Given 04/27/2023 12:30 PM EST 1 Drop Additional Source Comments INFORMATION SOURCE (unrecogn ized section and content) DATE CREATED AUTHOR AUTHOR'S ORGANIZ ATION 05/31/2019 [facility] DATE CREATED AUTHOR AUTHOR'S ORGANIZ ATION 10/07/2021 [facility] DATE CREATED AUTHOR AUTHOR'S ORGANIZ ATION 03/24/2022 [facility] DATE CREATED AUTHOR AUTHOR'S ORGANIZ ATION 02/16/2023 [facility] DATE CREATED AUTHOR AUTHOR'S ORGANIZ ATION 02/21/2023 [place] [facility] DATE CREATED AUTHOR AUTHOR'S ORGANIZ ATION 03/06/2023 [place] [facility] DATE CREATED AUTHOR AUTHOR'S ORGANIZ ATION 03/14/2023 [facility] DATE CREATED AUTHOR AUTHOR'S ORGANIZ ATION 07/02/2023 [facility] <item><item> Privacy Markings (unrecogniz ed section and content) Section Author: Medina Dotson PROHIBITION ON REDISCLOSURE OF CONFIDENTIAL INFORMATION This notice accompanies a disclosure of information concerning a client made to you with the consent of such client. Section Author: Medina Dotson PROHIBITION ON REDISCLOSURE OF CONFIDENTIAL INFORMATION This notice accompanies a disclosure of information concerning a client made to you with the consent of such client. Source Comments (unrecognize d section and content) In the event this informatio n is protected by the Federal Confidentiality of Alcohol and Drug Abuse Patient Records regulations: The Federal rules restrict any use of the information to criminally investigate or prosecute any alcohol or drug abuse patient.[facility] the event this information is protected by the Federal Confidentiality of Alcohol and Drug Abuse Patient Records regulations: The Federal rules restrict any use of the information to criminally investigate or prosecute any alcohol or drug abuse patient.[facility] Center[facility] the event this information is protected by the Federal Confidentiality of Alcohol and Drug Abuse Patient Records regulations: The Federal rules restrict any use of the information to criminally investigate or prosecute any alcohol or drug abuse patient.[facility] CenterIn the event this information is protected by the Federal Confidentiality of Alcohol and Drug Abuse Patient Records regulations: The Federal rules restrict any use of the information to criminally investigate or prosecute any alcohol or drug abuse patient.[facility] CenterIn the event this information is protected by the Federal Confidentiality of Alcohol and Drug Abuse Patient Records regulations: The Federal rules restrict any use of the information to criminally investigate or prosecute any alcohol or drug abuse patient.[facility] Center[facility] the event this information is protected by the Federal Confidentiality of Alcohol and Drug Abuse Patient Records regulations: The Federal rules restrict any use of the information to criminally investigate or prosecute any alcohol or drug abuse patient.[facility] CenterIn the event this information is protected by the Federal Confidentiality of Alcohol and Drug Abuse Patient Records regulations: The Federal rules restrict any use of the information to criminally investigate or prosecute any alcohol or drug abuse patient.[facility] CenterIn the event this information is protected by the Federal Confidentiality of Alcohol and Drug Abuse Patient Records regulations: The Federal rules restrict any use of the information to criminally investigate or prosecute any alcohol or drug abuse patient.[facility] CenterIn the event this information is protected by the Federal Confidentiality of Alcohol and Drug Abuse Patient Records regulations: The Federal rules restrict any use of the information to criminally investigate or prosecute any alcohol or drug abuse patient.[facility] CenterIn the event this information is protected by the Federal Confidentiality of Alcohol and Drug Abuse Patient Records regulations: The Federal rules restrict any use of the information to criminally investigate or prosecute any alcohol or drug abuse patient.[facility] CenterIn the event this information is protected by the Federal Confidentiality of Alcohol and Drug Abuse Patient Records regulations: The Federal rules restrict any use of the information to criminally investigate or prosecute any alcohol or drug abuse patient.[facility] CenterIn the event this information is protected by the Federal Confidentiality of Alcohol and Drug Abuse Patient Records regulations: The Federal rules restrict any use of the information to criminally investigate or prosecute any alcohol or drug abuse patient.[facility] CenterIn the event this information is protected by the Federal Confidentiality of Alcohol and Drug Abuse Patient Records regulations: The Federal rules restrict any use of the information to criminally investigate or prosecute any alcohol or drug abuse patient.[facility] CenterIn the event this information is protected by the Federal Confidentiality of Alcohol and Drug Abuse Patient Records regulations: The Federal rules restrict any use of the information to criminally investigate or prosecute any alcohol or drug abuse patient.[facility] CenterIn the event this information is protected by the Federal Confidentiality of Alcohol and Drug Abuse Patient Records regulations: The Federal rules restrict any use of the information to criminally investigate or prosecute any alcohol or drug abuse patient.[facility] CenterIn the event this information is protected by the Federal Confidentiality of Alcohol and Drug Abuse Patient Records regulations: The Federal rules restrict any use of the information to criminally investigate or prosecute any alcohol or drug abuse patient.[facility] CenterIn the event this information is protected by the Federal Confidentiality of Alcohol and Drug Abuse Patient Records regulations: The Federal rules restrict any use of the information to criminally investigate or prosecute any alcohol or drug abuse patient.[facility] CenterIn the event this information is protected by the Federal Confidentiality of Alcohol and Drug Abuse Patient Records regulations: The Federal rules restrict any use of the information to criminally investigate or prosecute any alcohol or drug abuse patient.[facility] CenterIn the event this information is protected by the Federal Confidentiality of Alcohol and Drug Abuse Patient Records regulations: The Federal rules restrict any use of the information to criminally investigate or prosecute any alcohol or drug abuse patient.[facility] CenterIn the event this information is protected by the Federal Confidentiality of Alcohol and Drug Abuse Patient Records regulations: The Federal rules restrict any use of the information to criminally investigate or prosecute any alcohol or drug abuse patient.[facility] CenterIn the event this information is protected by the Federal Confidentiality of Alcohol and Drug Abuse Patient Records regulations: The Federal rules restrict any use of the information to criminally investigate or prosecute any alcohol or drug abuse patient.[facility] CenterIn the event this information is protected by the Federal Confidentiality of Alcohol and Drug Abuse Patient Records regulations: The Federal rules restrict any use of the information to criminally investigate or prosecute any alcohol or drug abuse patient.[facility] CenterIn the event this information is protected by the Federal Confidentiality of Alcohol and Drug Abuse Patient Records regulations: The Federal rules restrict any use of the information to criminally investigate or prosecute any alcohol or drug abuse patient.[facility] CenterIn the event this information is protected by the Federal Confidentiality of Alcohol and Drug Abuse Patient Records regulations: The Federal rules restrict any use of the information to criminally investigate or prosecute any alcohol or drug abuse patient.[facility] CenterIn the event this information is protected by the Federal Confidentiality of Alcohol and Drug Abuse Patient Records regulations: The Federal rules restrict any use of the information to criminally investigate or prosecute any alcohol or drug abuse patient.[facility] CenterIn the event this information is protected by the Federal Confidentiality of Alcohol and Drug Abuse Patient Records regulations: The Federal rules restrict any use of the information to criminally investigate or prosecute any alcohol or drug abuse patient.[facility] CenterIn the event this information is protected by the Federal Confidentiality of Alcohol and Drug Abuse Patient Records regulations: The Federal rules restrict any use of the information to criminally investigate or prosecute any alcohol or drug abuse patient.[facility] CenterIn the event this information is protected by the Federal Confidentiality of Alcohol and Drug Abuse Patient Records regulations: The Federal rules restrict any use of the information to criminally investigate or prosecute any alcohol or drug abuse patient.[facility] CenterIn the event this information is protected by the Federal Confidentiality of Alcohol and Drug Abuse Patient Records regulations: The Federal rules restrict any use of the information to criminally investigate or prosecute any alcohol or drug abuse patient.[facility] CenterIn the event this information is protected by the Federal Confidentiality of Alcohol and Drug Abuse Patient Records regulations: The Federal rules restrict any use of the information to criminally investigate or prosecute any alcohol or drug abuse patient.[facility] CenterIn the event this information is protected by the Federal Confidentiality of Alcohol and Drug Abuse Patient Records regulations: The Federal rules restrict any use of the information to criminally investigate or prosecute any alcohol or drug abuse patient.[facility] Reason for Visit (unrecogniz ed section and content) Reason Comments Sleep Apnea New Patient Reason Comments HSAT Check In (Adult) Reason Comments Thyroid Cancer Reason Comments Established Patient Follow Up Plantar Fasciitis Pain Reason Comments Thyroid Problem Reason Comments PT Eval Specialty Diagnoses / Procedures Referred By Contac t Referred To Contact Physical Therapy / PHYSICAL THERAPY Diagnoses fitted for orthotics Procedures NEW RS PT ORTHOTIC TestraIsmael abrams [address] [place] [address] Kendell Andrea, PT [address] [place] [address] Referral ID Status Reason Start Date Expiration Date V isits Requested Visits Authorized [id number] Authorized 05/18/2021 05/17/2022 99 99 Reason Comments Follow Up Reason Comments PAP Therapy Fax Reason Comments PT Discharge Specialty Diagnoses / Procedures Referred By Contac t Referred To Contact Physical Therapy / PHYSICAL THERAPY 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 Procedures EST RS PT ORTHOTIC TestIsmael de la cruz [address] [place] [address] Kendell Andrea, PT [address] [place] [address] Referral ID Status Reason Start Date Expiration Date V isits Requested Visits Authorized [id number] Pending Review 05/29/2022 08/27/2022 1 1 Reason Comments Patient Request Reason Comments Thyroid Nodule Reason Comments preDM Reason Comments lipids Reason Comments Lipid Reason Comments Results Reason Comments Pain (foot) x 2 days, right , de nies injury Reason Comments Received Outside Medical Records Specialty Diagnoses / Procedures Referred By Contac t Referred To Contact Diagnoses Localized edema Procedures Vascular US duplex lower extremity venous right Britney Tran, DO [address] [facility] [place] [address] [facility] [place] Referral ID Status Reason Start Date Expiration Date V isits Requested Visits Authorized [id number] Authorized 03/04/2023 1 1 Reason Comments Yearly Exam Reason Comments Floaters Both Eyes Reason Comments Patient Question Rx CHANGE Reason Onset Date Comments Refill Request 06/30/2023 Reason Comments Quality Control Coordinator - Other Care Teams (unrecognized sec tion and content) Golf Teacher Relationship Specialty Start Date End Date Jennifer Jaquez PCP - General 09/25/09 Golf Teacher Relationship Specialty Start Date End Date Murnen, Jennifer D PCP - General 09/25/09 Golf Teacher Relationship Specialty Start Date End Date Murnen, Jennifer D PCP - General 09/25/09 Golf Teacher Relationship Specialty Start Date End Date Murnen, Jennifer D PCP - General 09/25/09 Golf Teacher Relationship Specialty Start Date End Date Murnen, Jennifer D PCP - General 09/25/09 Golf Teacher Relationship Specialty Start Date End Date Murnen, Jennifer D PCP - General 09/25/09 Golf Teacher Relationship Specialty Start Date End Date Murnen, Jennifer D PCP - General 09/25/09 Golf Teacher Relationship Specialty Start Date End Date Murnen, Jennifer D PCP - General 09/25/09 Golf Teacher Relationship Specialty Start Date End Date Murnen, Jennifer D PCP - General 09/25/09 Golf Teacher Relationship Specialty Start Date End Date Murnen, Jennifer D PCP - General 09/25/09 Golf Teacher Relationship Specialty Start Date End Date Murnen, Jennifer D PCP - General 09/25/09 Golf Teacher Relationship Specialty Start Date End Date Murnen, Jennifer D PCP - General 09/25/09 Golf Teacher Relationship Specialty Start Date End Date Murnen, Jennifer D PCP - General 09/25/09 Golf Teacher Relationship Specialty Start Date End Date Jennifer Jaquez PCP - General 09/25/09 Golf Teacher Relationship Specialty Start Date End Date Jennifer Jaquez PCP - General 09/25/09 Golf Teacher Relationship Specialty Start Date End Date Jennifer Jaquez MD PCP - General 09/25/09 Golf Teacher Relationship Specialty Start Date End Date Jeninfer Jaquez MD PCP - General 09/25/09 Golf Teacher Relationship Specialty Start Date End Date Jennifer Jaquez MD PCP - General 09/25/09 Golf Teacher Relationship Specialty Start Date End Date Jennifer Jaquez MD PCP - General 09/25/09 Golf Teacher Relationship Specialty Start Date End Date Jennifer Jaquez MD [address] [place] [address] PCP - General Family Medicine 03/04/23 Golf Teacher Relationship Specialty Start Date End Date Jennifer Jaquez MD PCP - General 09/25/09 Maria Isabel Cheney MD [address] [place] [address] Primary Staff Physician Cardiology 02/18/23 Golf Teacher Relationship Specialty Start Date End Date Jennifer Jaquez MD PCP - General 09/25/09 Maria Isabel Cheney MD [address] [place] [address] Primary Staff Physician Cardiology 02/18/23 Golf Teacher Relationship Specialty Start Date End Date Jennifer Jaquez MD PCP - General 09/25/09 Maria Isabel Cheney MD [address] [place] [address] Primary Staff Physician Cardiology 02/18/23 Golf Teacher Relationship Specialty Start Date End Date Jennifer Jaquez MD PCP - General 09/25/09 Maria Isabel Cheney MD [address] [place] [address] Primary Staff Physician Cardiology 02/18/23 Golf Teacher Relationship Specialty Start Date End Date Jennifer Jaquez MD PCP - General 09/25/09 Maria Isabel Cheney MD [address] [place] [address] Primary Staff Physician Cardiology 02/18/23 FOR RECORDS PERTAINING TO PATIENTS WHO ARE OR HAVE BEEN ENROLLED IN A CHEMICAL DEPENDENCY/SUBSTANCEABUSE PROGRAM, SOME INFORMATION MAY BE OMITTED. This clinical summary was aggregated from multiple sources. Caution should be exercised in using it in the provision of clinical care. This summary normalizes information from multiple sources, and as a consequence, information in this document may materially change the coding, format and clinical context of patient data. In addition, data may be omitted in some cases. CLINICAL DECISIONS SHOULD BE BASED ON THE PRIMARY CLINICAL RECORDS. [facility] [employer] [facility]. provides no warranty or guarantee of the accuracy or completeness of information in this document.
[2023-07-09 10:27] VITALS: BP 142/83; PULSE 82; RESP 14; TEMP 36.9; O2SAT 98; BMI 37.8
[2023-07-09 10:51] LABS: Bedside Glucose 88 mg/dL (74-106)
[2023-07-09] MEDS: Cefazolin 2 GM in 0.9% Normal Saline (100mL Bag) 100 ML IV (11:18)
[2023-07-09] MEDS: Botulinum Toxin A 100 Units Vial IJ (11:34)
[2023-07-09] MEDS: 0.9% Normal Saline (Pres. free 10 ML Vial (11:34)
[2023-07-09 11:47] VITALS: BP 109/78; BP 142/83; PULSE 73; RESP 16; TEMP 36.3; O2SAT 99
[2023-07-09 11:50] VITALS: BP 117/76; BP 142/83; PULSE 70; RESP 16; O2SAT 100
[2023-07-09 11:55] VITALS: BP 119/74; BP 142/83; PULSE 62; RESP 16; O2SAT 100
[2023-07-09 12:00] VITALS: BP 107/65; BP 142/83; PULSE 55; RESP 16; TEMP 36.5; O2SAT 100
[2023-07-09 12:30] VITALS: BP 142/83
== END 2023-07-09 12:42 | disposition home or self-care (01) ==
LOC: SDC 09:35 → AC 09:35
PROVIDERS: PCP Family Medicine; Visit Provider Urology
PROC: 3E0K8GC Introduction of Other Therapeutic Substance into Genitourinary Tract, Via Natural or Artificial Opening Endoscopic (ICD-10-PCS; CPT 52287; principal; 2023-07-09 11:40)
DX: N32.81 Overactive bladder (principal); E11.9 Type 2 diabetes mellitus without complications; N39.46 Mixed incontinence; K21.9 Gastro-esophageal reflux disease without esophagitis; E78.5 Hyperlipidemia, unspecified; R35.1 Nocturia; Z90.710 Acquired absence of both cervix and uterus; Z79.890 Hormone replacement therapy; Z79.84 Long term (current) use of oral hypoglycemic drugs; E03.9 Hypothyroidism, unspecified
CPT/HCPCS: 52287; 00910; 82962; J7120; J0585; J2405; J3490

== ENCOUNTER → 2023-10-15 | Outpatient (CLI) | payer MEDICARE, BC, SELFPAY ==
--- NOTE | 2023-10-15 08:15 | BI_ITS ---
MAMMOGRAPHY - BILATERAL SCREENING REASON FOR EXAM: Female, 68 years old. Routine annual screening examination. PERTINENT HISTORY: Sister with breast cancer. Aunts with breast cancer. TECHNIQUE: Digital bilateral breast shea (3D mammographic acquisition) in the CC and MLO projections. 2-D mediolateral oblique (MLO) and craniocaudad (CC) views of both breasts were obtained. CAD: Full Field Digital Mammography with Computer Added Detection was performed. COMPARISON: Comparison is made with prior study August 07, 2022 and July 12, 2021. FINDINGS: Breast Composition: There are scattered areas of fibroglandular density. There are no dominant masses or suspicious calcifications. Stable small benign-appearing bilateral axillary lymph nodes. No other significant abnormalities are identified. There has been no significant change since the prior study. BI/SCRN MAMM (CAD)W/SHEA BILAT IMPRESSION: Stable bilateral screening mammogram. Yearly follow-up mammogram recommended. (A) ASSESSMENT CATEGORY: BIRADS Category 2: Benign. A letter regarding these results will be sent to the patient by the facility within 30 days. Approximately 10% of breast cancers are not detected by mammography. A normal mammogram should not delay biopsy of a clinically suspicious abnormality. [id number] Electronically Signed: Levy Barnes MD at 9:13 EDT ,
== END | disposition home or self-care (01) ==
LOC: OPBI 08:15
PROVIDERS: PCP Family Medicine; Referring Provider Obstetrics & Gynecology; Visit Provider Obstetrics & Gynecology
DX: Z12.31 Encounter for screening mammogram for malignant neoplasm of breast (principal); Z80.3 Family history of malignant neoplasm of breast
CPT/HCPCS: 77063; 77067

== ENCOUNTER → 2024-07-27 | Outpatient (CLI) | payer MEDICARE, BC, SELFPAY | END | disposition home or self-care (01) | LOC: BWCLAB 14:18 | PROVIDERS: PCP Family Medicine; Referring Provider Nurse Practitioner Women's Health; Visit Provider Nurse Practitioner Women's Health | DX: Z15.01 Genetic susceptibility to malignant neoplasm of breast (principal); Z80.3 Family history of malignant neoplasm of breast | CPT/HCPCS: 36415 ==

== ENCOUNTER → 2024-10-27 | Outpatient (CLI) | payer MEDICARE, BC, SELFPAY ==
--- NOTE | 2024-10-27 09:21 | BI_ITS ---
EXAM: SCRN MAMM (CAD)W/SHEA BILAT DATE: 10/27/2024 CLINICAL HISTORY: F, Age 69 y/o , SCREENING MAMMOGRAM FOR BREAST CANCER Sister with breast cancer. Aunts with breast cancer. BREAST CANCER RISK ASSESSMENT: Not assessed. TECHNIQUE: Bilateral screening digital breast tomosynthesis with 2D and 3D images. Computer aided detection. COMPARISON: Prior exam(s) dated October 15, 2023.. FINDINGS: TISSUE DENSITY: The breast tissue is composed of scattered area of fibroglandular density. Bilateral Breast Mammographic Findings: No significant masses, calcifications or other abnormalities are identified. No suspicious masses, areas of developing architectural distortion, or suspicious calcifications. There has been no significant interval change. BI/SCRN MAMM (CAD)W/SHEA BILAT IMPRESSION: OVERALL FINAL ASSESSMENT: BIRADS 1 NEGATIVE RECOMMENDATION: Routine annual follow-up in 1 Year A letter with findings and recommendations will be mailed to the patient. Reading Location: [place] [address]
== END | disposition home or self-care (01) ==
LOC: OPBI 09:20
PROVIDERS: PCP Obstetrics & Gynecology; Referring Provider Obstetrics & Gynecology; Visit Provider Obstetrics & Gynecology
DX: Z12.31 Encounter for screening mammogram for malignant neoplasm of breast (principal)
CPT/HCPCS: 77063; 77067